=== PATIENT | female | born 1960 | race Caucasian/White ===

== ENCOUNTER 2020-02-16 09:51 | Outpatient (CLI) | payer OTHER, SELFPAY ==
--- NOTE | 2020-02-16 10:15 | USCV_ITS ---
Darlene Michael Age: 59 Gender: F : 1960 Exam Date: 02/16/2020 10:28 Ordering Phys: Frank Mcginnis MD ([email or web address]) Technologist: Latricia Escudero [place] [facility] [place]: SOB, [place], ISCHEMIC CARDIOMYOPATHY BP: / HR: 80 Rhythm: Sinus Technical Quality: Adequate MEASUREMENTS (Male / Female) Normal Values 2D ECHO LV Diastolic Diameter PLAX 5.3 cm 4.2 - 5.9 / 3.9 - 5.3 cm LV Systolic Diameter PLAX 3.5 cm IVS Diastolic Thickness 1.2 cm 0.6 - 1.0 / 0.6 - 0.9 cm IVS Systolic Thickness 1.7 cm LVPW Diastolic Thickness 1.0 cm 0.6 - 1.0 / 0.6 - 0.9 cm LVPW Systolic Thickness 1.0 cm LVOT Diameter 2.0 cm LV Ejection Fraction 2D Teich 62.0 % LV Ejection Fraction MOD 2C 55.8 % LV Ejection Fraction 2C AL 56.6 % LA Diameter 3.0 cm LA Width 3.7 cm LA Height 5.3 cm RA Width 3.1 cm RA Height 4.1 cm M-MODE LV Diastolic Diameter MM 4.7 cm 4.2 - 5.9 / 3.9 - 5.3 cm LV Systolic Diameter MM 3.6 cm LV Ejection Fraction MM Teich 45.7 % IVS Diastolic Thickness MM 0.9 cm 0.6 - 1.0 / 0.6 - 0.9 cm IVS Systolic Thickness MM 0.9 cm LVPW Diastolic Thickness MM 1.6 cm 0.6 - 1.0 / 0.6 - 0.9 cm LVPW Systolic Thickness MM 1.7 cm Aortic Annulus Diameter 2.7 cm LA Ao Ratio MM 1.1 MV E Point Septal Separation 0.4 cm DOPPLER AV Peak Velocity 119.0 cm/s LVOT Peak Velocity 89.0 cm/s AV Area Cont Eq vti 2.9 cm squared AV Area Cont Eq pk 2.4 cm squared MV Peak Velocity 103.0 cm/s MV Area PHT 4.1 cm squared Mitral E to A Ratio 0.7 MV E' Velocity 7.0 cm/s Mitral E to MV E' Ratio 11.9 Mitral E to LV E' Lateral Ratio 10.4 Mitral E to LV E' Septal Ratio 14.2 TR Peak Velocity 323.0 cm/s TR Peak Gradient 41.7 mmHg Right Atrial Pressure 3.0 mmHg Pulmonary Artery Systolic Pressu 44.7 mmHg PV Peak Velocity 91.0 cm/s RV Acceleration Time 0.1 s FINDINGS Left Ventricle Normal left ventricular cavity size. Normal left ventricular wall thickness. Mildly decreased left ventricular systolic function. Global left ventricular hypokinesis. Grade I/IV diastolic dysfunction (abnormal relaxation filling pattern), normal to mildly elevated filling pressures. Left ventricular ejection fraction is estimated at 40 %. Right Ventricle Normal right ventricular size and systolic function. Mild pulmonary hypertension, RVSP 44.7 mmHg. Right Atrium The right atrium is normal in size. Left Atrium The left atrium is normal in size. Mitral Valve Structurally normal mitral valve. Moderate mitral valve regurgitation. Aortic Valve Structurally normal aortic valve without significant sclerosis or stenosis. There is no aortic regurgitation. Tricuspid Valve Structurally normal tricuspid valve. Mild tricuspid valve regurgitation. Pulmonic Valve Pulmonic valve not well visualized. Pericardium Normal pericardium without effusion. Aorta Normal ascending aorta dimension. CONCLUSIONS Normal left ventricular cavity size. Normal left ventricular wall thickness. Mildly decreased left ventricular systolic function. Global left ventricular hypokinesis. Grade I/IV diastolic dysfunction (abnormal relaxation filling pattern), normal to mildly elevated filling pressures. Left ventricular ejection fraction is estimated at 40 %. Normal right ventricular size and systolic function. Mild pulmonary hypertension, RVSP 44.7 mmHg. Structurally normal mitral valve. Moderate mitral valve regurgitation. From the previous echo dated 08/20/2019 the left ventricular ejection fraction has diminished slightly. Previously noted to be 55%. The mitral regurgitation has lessened previously noted to be severe. Pulmonary artery pressure is the same. Otherwise, no change. Dr. Frank Mcginnis MD (Electronically Signed) Final Date: 19 February 2020 08:24 S
== END 2020-02-16 09:52 | disposition home or self-care (01) ==
LOC: RAD 09:56
PROVIDERS: Family Provider Internal Medicine; PCP Internal Medicine; Visit Provider Internal Medicine Cardiovascular Disease
DX: R06.02 Shortness of breath (principal); I25.5 Ischemic cardiomyopathy; I27.20 Pulmonary hypertension, unspecified; I21.9 Acute myocardial infarction, unspecified
CPT/HCPCS: 93306

== ENCOUNTER 2021-02-10 18:37 | Emergency (ER) | payer OTHER, SELFPAY ==
[2021-02-10 18:54] VITALS: BP 151/97; PULSE 80; RESP 18; TEMP 36.7; O2SAT 91; BMI 30.7
[2021-02-10 19:09] VITALS: BP 138/88; PULSE 92; RESP 20; TEMP 36.7; O2SAT 96
--- NOTE | 2021-02-10 19:32 | CTR_ITS ---
PROCEDURE INFORMATION: Exam: CT Abdomen And Pelvis Without Contrast Exam date and time: 02/10/2021 7:46 PM Age: 60 years old Clinical indication: Abdominal pain; Flank; Right; Prior surgery; Surgery type: x 2; Additional info: Right flank pain TECHNIQUE: Imaging protocol: Computed tomography of the abdomen and pelvis without contrast. Radiation optimization: All CT scans at this facility use at least one of these dose optimization techniques: automated exposure control; mA and/or kV adjustment per patient size (includes targeted exams where dose is matched to clinical indication); or iterative reconstruction. COMPARISON: No relevant prior studies available. RADIATION DOSE METRICS: Total DLP (mGy-cm): 1225.91 FINDINGS: Lungs: Mild fibrosis at the lung bases. Mediastinal space: There is a small hiatal hernia present. Liver: The liver is unremarkable in appearance. Gallbladder and bile ducts: No calcified gallstones in the gallbladder. No gallbladder wall thickening. No pericholecystic fluid. No biliary dilatation. Pancreas: The pancreas is normal in appearance. No pancreatic duct dilatation. Spleen: The spleen is normal in size and appearance. Adrenal glands: The adrenal glands appear within normal limits. Kidneys and ureters: Nonobstructing 2 mm right renal calculus. No left renal calculus. No hydronephrosis. 5 mm simple appearing left renal cyst. Stomach and bowel: No acute gastric abnormality demonstrated. The small bowel is unremarkable as demonstrated. Appendix: No evidence of appendicitis. Intraperitoneal space: No pneumoperitoneum. No significant fluid collection. Vasculature: The aorta is unremarkable as demonstrated. Lymph nodes: No enlarged lymph nodes. Urinary bladder: Urinary bladder is empty. No gross abnormality of the bladder noted. Reproductive: The uterus is not visualized, consistent with hysterectomy. Bones/joints: No fracture or other acute osseous abnormality. Degenerative spine changes are noted. Soft tissues: The soft tissues appear unremarkable. CT/CT kidney stone [id number] IMPRESSION: 1. Nonobstructing 2 mm right renal calculus. No left renal calculus. No hydronephrosis. No obstructive uropathy. 2. Urinary bladder is empty. No gross abnormality of the bladder noted. 3. No acute abnormality demonstrated in the abdomen and pelvis. COMMENTS: Consistent with the [employer]'s Incidental Findings Committee white paper (J Am Steve Radiol 2018): Any incidental renal lesion less than 1 cm or classified as too small to characterize, or any incidental cystic renal lesion characterized as simple-appearing, is likely benign. No follow-up imaging is recommended for these lesions per consensus recommendations based on imaging criteria. Radiation Dose CTDIVOL = (mGy): DLP = 1225.91 (mGy-cm)
[2021-02-10 20:22] LABS: Basophils # 0.1 10^3/uL (0.0-0.1); Basophils % 0.6 %; Eosinophils # 0.1 10^3/uL (0.0-0.8); Eosinophils % 0.9 %; Hematocrit 46.5 % (37.0-47.0); Hemoglobin 16.1 g/dL (11.5-15.3); Lymphocytes # 1.9 10^3/uL (0.8-4.8); Lymphocytes % 18.8 %; Mean Corpuscular HGB Conc 34.6 g/dL (30.0-36.0); Mean Corpuscular Hemoglobin 32.3 pg (28.0-34.0); Mean Corpuscular Volume 93.4 fL (81-99); Mean Platelet Volume 9.8 fL (7.4-10.4); Monocytes # 1.2 10^3/uL (0.2-0.9); Monocytes % 11.7 %; Neutrophils # 6.86 10^3/uL (1.8-7.7); Neutrophils % 67.8 %; Nucleated Red Blood Cells % 0 %; Platelet Count 285 10^3/cmm (130-400); Red Blood Count 4.98 10^6/uL (4.1-5.3); Red Cell Distribution Width 11.9 % (12.1-15.1); White Blood Count 10.1 10^3/uL (4.0-10.0)
[2021-02-10 20:39] LABS: Alanine Aminotransferase 21 U/L (0-33); Albumin Level 4.2 g/dL (3.5-5.2); Alkaline Phosphatase 74 IU/L (35-105); Anion Gap 15.3 (5-19); Aspartate Amino Transferase 45 U/L (0-32); Blood Urea Nitrogen 20 mg/dL (8-23); C Reactive Protein 1.9 mg/L (0.0-4.9); Calcium 8.9 mg/dL (8.5-10.5); Carbon Dioxide 22 mmol/L (22-29); Chloride 101 mmol/L (98-107); Glomerular Filtration Rate 72.7 mL/min (90-130); Glucose 108 mg/dL (65-115); Lipase 39 U/L (13-60); Osmolality Calculated 281 mOsm/kg (285-295); Potassium 4.3 mmol/L (3.5-5.1); Sodium 134 mmol/L (136-145); Total Bilirubin 0.4 mg/dL (0.15-1.2); Total Protein 7.2 g/dL (6.6-8.7)
--- NOTE | 2021-02-10 20:52 | ED_ITS ---
HPI - Abdominal Pain General: Chief Complaint: Abdominal Pain Stated Complaint: ab pain, back pain Time Seen by Provider: 02/10/21 19:13 History of Present Illness: HPI narrative: Patient is a 60-year-old female who presents to the emergency department with right flank pain that started yesterday and got much worse today. Pain started in the right lower quadrant and radiated and has localized to the right flank. She has associated nausea and diaphoresis. No diarrhea or vomiting. She denies any chest pain. No history of urolithiasis. Gallbladder and appendix have not been surgically removed. She is here to be evaluated because her pain is not improving. MD elicited complaint: flank pain Onset (ago): day(s) (1) Pain Consistency: constant Location: R flank Severity: severe Quality: stabbing Radiation: RLQ Exacerbating factors: nothing Relieving factors: nothing Associated Symptoms: Reports nausea; Denies anorexia, belching, bloating, change in bowel habits, change in stool character, chills, coffee ground emesis, constipation, GI cramping, diarrhea, dyspepsia, dysuria, excessive flatus, fever(s), heartburn, hematochezia, hematuria, hematemesis, fecal incontinence, loose stools, melena, poor appetite, syncope and vomiting Review of Systems General: Reports: 10 or more systems reviewed and unremarkable except in HPI and below Const: Denies: fever(s) or chills Card: Denies: syncope GI: Reports: nausea; Denies: vomiting, hematemesis, coffee ground emesis, heartburn, diarrhea, constipation, bloating, GI cramping, belching, excessive flatus, fecal incontinence, change in bowel habits, change in stool character, hematochezia or melena : Denies: dysuria or hematuria PFS ED PFSH: Medical History ASHD (arteriosclerotic heart disease) Congestive heart failure Dyslipidemia Epistaxis HTN (hypertension) Ischemic cardiomyopathy Palpitations Surgical History S/P angioplasty with stent Family History Father CAD (coronary artery disease) Hypertension CHF (congestive heart failure) S/P CABG (coronary artery bypass graft) Mother Cancer BREAST CA Social History Smoking and tobacco status: current every day smoker cigarettes Alcohol intake: never Marital status: Single Current occupational status: employed Physical Exam Const: COMMON NORMALS: no acute distress, average body habitus, patient oriented x3, no limitations, healthy appearing, alert and well nourished HENMT: COMMON NORMALS: normocephalic, atraumatic and moist oral mucous membranes HEAD & SCALP: normocephalic and atraumatic Neck/C-Spine: COMMON NORMALS: no meningeal signs and no JVD Resp: COMMON NORMALS: normal respiratory effort, No retractions, No use of accessory muscles, clear to auscultation bilaterally and percussion normal AUSCULTATION: clear to auscultation bilaterally PERCUSSION: percussion normal Cardio: COMMON NORMALS: no JVD, regular rate, regular rhythm, S1 normal heart sound present, S2 normal heart sound present, No gallops present (Cardio), No clicks present (Cardio), No murmurs present (Cardio), No rub (Cardio) and Peripheral pulses 2+ throughout RATE: regular rate RHYTHM: regular rhythm HEART SOUNDS: S1 normal heart sound present and S2 normal heart sound present PERIPHERAL PULSES: Peripheral pulses 2+ throughout GI: COMMON NORMALS: Normal to inspection, nondistended, normoactive bowel sounds present, Soft to palpation, non-tender, No hepatosplenomegaly present, no masses and no bruits PALPATION: Yes Soft to palpation and Yes No hepatosplenomegaly present : BLADDER/KIDNEY EXAM: Yes CVA tenderness on the right Back/Pelvis: GENERAL BACK: Yes CVA tenderness Extremity: COMMON NORMALS: normal to inspection, full ROM, capillary refill normal, no calf tenderness and no pedal edema Neuro: COMMON NORMALS: patient oriented x3 SENSORIUM/ORIENTATION: Yes alert MENINGEAL SIGNS: Yes no meningeal signs Skin: COMMON NORMALS: no rashes or lesions noted, no wounds, turgor normal, no jaundice, no petechiae and no mottling GENERAL SKIN EXAM: no rashes or lesions noted and turgor normal Course Reevaluation(s): Reevaluation #1: Discussed her lab and imaging findings with her. CT scan findings consistent with right renal calculus. She has blood in her urine. White cell count is normal. No UTI. We will manage her conservatively with pain medicine and tamsulosin. She will follow-up with her primary care provider. She voiced understanding and is in agreement with the plan. Time: 21:32 Vital Signs: Vital signs: Vital Signs Temperature 98.1 F 02/10/21 19:09 Pulse Rate 95 02/10/21 21:42 Respiratory Rate 16 02/10/21 21:42 Blood Pressure 150/95 02/10/21 21:42 Pulse Oximetry 97 02/10/21 21:42 MDM - Abdominal Pain MDM Narrative: Medical decision making narrative: This 60 year old female patient presents with right flank pain. Evaluation in the emergency department is consistent with uncomplicated right renal calculus. Pain was completely resolved following intravenous pain medications and she is discharged home on oral pain medications and tamsulosin. She will follow-up with her primary care provider. Medical Records: Attestation: I reviewed the patient's medical records. Lab Data: Attestation: I reviewed the patient's lab results. Labs: Lab Results 02/10/21 02/10/21 02/10/21 Range/Units 20:15 20:15 20:30 WBC 10.1 H (4.0-10.0) 10^3/ uL RBC 4.98 (4.1-5.3) 10^6/u L Hgb 16.1 H (11.5-15.3) g/dL Hct 46.5 (37.0-47.0) % MCV 93.4 (81-99) fL MCH 32.3 (28.0-34.0) pg MCHC 34.6 (30.0-36.0) g/dL RDW 11.9 L (12.1-15.1) % Plt Count 285 (130-400) 10^3/c mm MPV 9.8 (7.4-10.4) fL Neut % (Auto) 67.8 % Lymph % (Auto) 18.8 % [place] % (Auto) 11.7 % Eos % (Auto) 0.9 % Baso % (Auto) 0.6 % Neut # (Auto) 6.86 (1.8-7.7) 10^3/u L Lymph # (Auto) 1.9 (0.8-4.8) 10^3/u L [place] # (Auto) 1.2 H (0.2-0.9) 10^3/u L Eos # (Auto) 0.1 (0.0-0.8) 10^3/u L Baso # (Auto) 0.1 (0.0-0.1) 10^3/u L Nucleated RBC % (a uto) 0 % Nucleated RBCs # 0.0 /100WBC Sodium 134 L (136-145) mmol/L Potassium 4.3 (3.5-5.1) mmol/L Chloride 101 (98-107) mmol/L Carbon Dioxide 22 (22-29) mmol/L Anion Gap 15.3 (5-19) BUN 20 (8-23) mg/dL Creatinine 0.8 (0.5-0.9) mg/dL GFR Calculation 72.7 L (90-130) mL/min Glucose 108 (65-115) mg/dL Calculated Osmolal ity 281 L (285-295) mOsm/k g Calcium 8.9 (8.5-10.5) mg/dL Total Bilirubin 0.4 (0.15-1.2) mg/dL AST 45 H (0-32) U/L ALT 21 (0-33) U/L Alkaline Phosphata se 74 (35-105) IU/L C-Reactive Protein 1.9 (0.0-4.9) mg/L Total Protein 7.2 (6.6-8.7) g/dL Albumin 4.2 (3.5-5.2) g/dL Globulin 3.0 (1.3-4.6) g/dL Lipase 39 (13-60) U/L Urine Color Yellow (Yellow) Urine Appearance Clear (CLEAR) Urine pH 5 (5-7) Ur Specific Gravit y 1.005 (1.005-1.030) Urine Protein Neg (Negative) Urine Glucose (UA) Norm (Normal) Urine Ketones Negative (Negative) Urine Blood 2+ H (Negative) Urine Nitrate Negative (Negative) Urine Bilirubin Neg (Negative) Urine Urobilinogen Norm (Negative) mg/dL Ur Leukocyte Elena ase Negative (Negative) Urine RBC 0-4 H (0-2) /hpf Urine WBC None (0-5) /hpf Ur Squamous Epith Cells 0-4 H (0-5) /hpf Amorphous Sediment Not Reportable Urine Bacteria Trace (NONE) /hpf Imaging Data ^: CT Abd/Pel: Attestation: I personally reviewed and interpreted this imaging study as follows: Radiologist's impression: [id number] [place], [place] [address]CW Scan ReportSigned Patient: Darlene Michael #: [id number]: 1960cct#:[id number]/Sex: 60 / FADM Date: 02/10/21Loc: ERRoom/Bed:Attending Dr: Ordering Provider/Ordering MD: Demarco Zhou MD, [facility] [place] Date of Service: 02/10/21 Procedure(s): CT kidney stone [id number] Accession Number(s): [id number] Report Number: [id number] PROCEDURE INFORMATION: Exam: CT Abdomen And Pelvis Without Contrast Exam date and time: 02/10/2021 7:46 PM Age: 60 years old Clinical indication: Abdominal pain; Flank; Right; Prior surgery; Surgery type: x 2; Additional info: Right flank pain TECHNIQUE: Imaging protocol: Computed tomography of the abdomen and pelvis without contrast. Radiation optimization: All CT scans at this facility use at least one of these dose optimization techniques: automated exposure control; mA and/or kV adjustment per patient size (includes targeted exams where dose is matched to clinical indication); or iterative reconstruction. COMPARISON: No relevant prior studies available. RADIATION DOSE METRICS: Total DLP (mGy-cm): 1225.91 FINDINGS: Lungs: Mild fibrosis at the lung bases. Mediastinal space: There is a small hiatal hernia present. Liver: The liver is unremarkable in appearance. Gallbladder and bile ducts: No calcified gallstones in the gallbladder. No gallbladder wall thickening. No pericholecystic fluid. No biliary dilatation. Pancreas: The pancreas is normal in appearance. No pancreatic duct dilatation. Spleen: The spleen is normal in size and appearance. Adrenal glands: The adrenal glands appear within normal limits. Kidneys and ureters: Nonobstructing 2 mm right renal calculus. No left renal calculus. No hydronephrosis. 5 mm simple appearing left renal cyst. Stomach and bowel: No acute gastric abnormality demonstrated. The small bowel is unremarkable as demonstrated. Appendix: No evidence of appendicitis. Intraperitoneal space: No pneumoperitoneum. No significant fluid collection. Vasculature: The aorta is unremarkable as demonstrated. Lymph nodes: No enlarged lymph nodes. Urinary bladder: Urinary bladder is empty. No gross abnormality of the bladder noted. Reproductive: The uterus is not visualized, consistent with hysterectomy. Bones/joints: No fracture or other acute osseous abnormality. Degenerative spine changes are noted. Soft tissues: The soft tissues appear unremarkable. CT/CT kidney stone [id number] IMPRESSION: 1. Nonobstructing 2 mm right renal calculus. No left renal calculus. No hydronephrosis. No obstructive uropathy. 2. Urinary bladder is empty. No gross abnormality of the bladder noted. 3. No acute abnormality demonstrated in the abdomen and pelvis. COMMENTS: Consistent with the [employer] [place] [employer]'s Incidental Findings Committee white paper (J Am Steve Radiol 2018): Any incidental renal lesion less than 1 cm or classified as too small to characterize, or any incidental cystic renal lesion characterized as simple-appearing, is likely benign. No follow-up imaging is recommended for these lesions per consensus recommendations based on imaging criteria. Radiation Dose CTDIVOL = (mGy): DLP = 1225.91 (mGy-cm) Dictated By:Larry Hart MDSigned By:Larry Hart MDSigned Date/[place] e:02/10/212115DD/ 14 Discharge Plan Discharge Patient Disposition: Home Clinical Impression: Calculus of kidney Condition: Stable Prescriptions: New hydrocodone-acetaminophen 5-325 mg tablet 1 tab PO Q8H PRN (Reason: kidney stones) Qty: 20 RF: 0 Flomax 0.4 mg capsule 0.4 mg PO DAILY Qty: 30 RF: 0 Continued aspirin [Adult Low Dose Aspirin] 81 mg tablet,delayed release (DR/EC) 81 mg PO DAILY@0700 RF: 0 nitroglycerin [Nitrostat] 0.4 mg tablet, sublingual 0.4 mg SUBLINGUAL Q5M PRN (Reason: Chest Pain) RF: 0 potassium chloride [Klor-Con 10] 10 mEq tablet extended release 10 meq PO DAILY@0700 RF: 0 metoprolol succinate 100 mg tablet extended release 24 hr 50 mg PO DAILY Qty: 45 RF: 3 lovastatin 40 mg tablet 40 mg PO DAILY@0700 RF: 0 clopidogrel 75 mg tablet 75 mg PO DAILY@0700 RF: 0 furosemide 20 mg tablet 20 mg PO DAILY@0700 RF: 0 lisinopril 2.5 mg tablet 2.5 mg PO DAILY@0700 RF: 0 Discharge Orders: Discharge ED (Routine); Ordered 02/10/21 Ordered By: Demarco Zhou Referrals: Randall Peoples MD [Primary Care Provider] - 1-3 days Discharge Diet: Usual diet Discharge Activity: Increase activity as tolerated Patient Instructions: Kidney Stones (ED), Opioid Safety Activity Restrictions/Additional Instructions: Return for any new or worsening symptoms. Follow-up with your primary care provider within 3 days. Drink plenty of fluids to keep well-hydrated. Take the pain medicine as needed for pain. Take the tamsulosin daily until your pain has resolved. If you have repeated episodes of kidney stones you may need to see a urologist. Coding Level of Care Code ED Primary Care Provider for Carlos Fwd Exam Comprehensive
[2021-02-10] MEDS: ondansetron 2 mg/ML SDV 2 mL 4 MG IVP (20:56)
[2021-02-10] MEDS: morphine 4 mg/mL SDV 1 mL IVP (20:58)
[2021-02-10 21:10] LABS: Glucose Urine UA Norm (Normal); Ketones Urine Negative (Negative); Protein Urine Neg (Negative); Specific Gravity, Urine 1.005 (1.005-1.030); Urine Appearance Clear (CLEAR); Urine Color Yellow (Yellow); pH Urine 5 (5-7)
[2021-02-10 21:11] LABS: Add Urine Microscopic? YES; Bilirubin Urine Neg (Negative); Blood Urine 2+ (Negative); Leukocyte Esterase Urine Negative (Negative); Nitrate Urine Negative (Negative); Urobilinogen Urine Norm (Negative)
[2021-02-10 21:25] LABS: Add Urine Culture? No; Bacteria Urine TRACE /hpf; RBC Urine 0-4 /hpf (0-2); Squamous Epithelial Cell Urine 0-4 /hpf (0-5)
[2021-02-10 21:42] VITALS: BP 150/95; PULSE 95; RESP 16; O2SAT 97
== END 2021-02-10 21:43 | disposition home or self-care (01) ==
PROVIDERS: Emergency Provider Family Medicine; PCP Internal Medicine
DX: N20.0 Calculus of kidney (principal); Z79.82 Long term (current) use of aspirin; Z79.02 Long term (current) use of antithrombotics/antiplatelets; I11.0 Hypertensive heart disease with heart failure; I50.9 Heart failure, unspecified; E78.5 Hyperlipidemia, unspecified; F17.210 Nicotine dependence, cigarettes, uncomplicated
CPT/HCPCS: 74176; 80053; 81001; 83690; 85025; 86140; 96374; 96375; 99283; J2270; J2405

== ENCOUNTER 2021-03-03 07:54 | Inpatient (IN) | payer OTHER, SELFPAY ==
[2021-03-03] VITALS (15 sets, daily range): BP systolic 97–191; BP diastolic 60–88; PULSE 65–122; RESP 14–26; TEMP 36.7; O2SAT 90–98; BMI 26.6
--- NOTE | 2021-03-03 08:06 | USCV_ITS ---
Darlene Michael Age: 60 Gender: F : 1960 Exam Date: 03/03/2021 08:54 Ordering Phys: Misty Avina Technologist: Rahel Cardona Exam Location: [facility] – [place]_ Indication: COLD PAINFUL LT FOOT Risk Factors: Unknown Previous Vascular Surgery: CARDIAC STENTS RIGHT LEFT BP: 123.0 / BP: 123.0/ 67.00 0 0 Waveform Velocity (cm/s) Velocity (cm/s) Waveform Iliac Prox 76.0 Biphasic Iliac Mid 88.4 Biphasic FINDINGS VIZ CLOT FROM DISTAL ILIAC TO DISTAL FEM ART. NO FLOW POP TO PERONEAL TO DPA/TOOLS ADMINISTRATOR. Echogenic material was noted in the lumen of the distal iliac artery on the left side. No significant Doppler flow signals are noted in the distal iliac, femoral, popliteal and infrapopliteal vessels. CONCLUSIONS Features suggestive of thrombus occluding the distal iliac artery on the left side with no significant blood flow in the femoral, popliteal and infrapopliteal vessels, based on the Doppler signals No similar previous studies are available for comparison Misty Avina was informed about this finding Dr Karena Clark MD [facility] (Electronically Signed) Final Date: 03 March 2021 09:49 S
--- NOTE | 2021-03-03 08:06 | USCV_ITS ---
Darlene Michael Age: 60 Gender: F : 1960 Exam Date: 03/03/2021 08:45 Ordering Phys: Misty Avina Technologist: Rahel Cardona Exam Location: [facility] [place]_ Indication: COLD PAINFUL LT FOOT HISTORY: Pain and numbness lt foot PROCEDURES: Venous duplex imaging was performed in only the left lower extremity. The following venous structures were evaluated: common femoral vein, profunda vein, proximal portion of the greater saphenous vein, superficial femoral vein, and the popliteal vein. In addition, the posterior tibial and peroneal trunk were evaluated. Serial compression, augmentation maneuvers, and spectral Doppler flow evaluation were performed. FINDINGS: No DVT seen in any vessel examined in venous system See arterial study. The veins were found to be easily compressible with spontaneous blood flow. Non pulsatile flow pattern. CONCLUSIONS No evidence of DVT in the above-mentioned identifiable veins. Dr Karena Clark MD [facility] (Electronically Signed) Final Date: 03 March 2021 17:16 S
--- NOTE | 2021-03-03 08:07 | W.ED.EXTPRO ---
Documented by User: AHSAN Denton 03/03/21 10:57 HPI - Extremity Problem General: Chief complaint: Extremity Problem,Nontraumatic Stated complaint: LEFT LEG PAIN Time Seen by Provider: 03/03/21 07:55 Source: patient Mode of arrival: wheelchair Limitations: no limitations History of Present Illness: HPI Narrative: Patient is a 60-year-old female who presents to ED today for evaluation of left leg pain. Patient tells me earlier this morning she began feeling like her left lower extremity was numb and complained of 10/10 pain. She states numbness/pain affected the entire leg and states it felt like it was asleep . She also felt like the lower portion of her leg and foot was swollen. She states her left foot also turned blue for a little while. She did not notice any temperature changes. Patient tells me she has had what has felt like a pulled muscle in her left calf for approximately a month now. Upon arrival patient tells me that the numbness has subsided but still feels like her toes have some altered sensation. Still having 5/10 pain. She does not complain of back pain. No known history of PVD. She does have known HTN, CAD, ischemic cardiomyopathy, and CHF. MD Complaint: extremity pain and extremity swelling Onset (ago): hour(s) Pain Consistency: now resolved Location: left and lower extremity Radiation: none Relieving factors: nothing Exacerbating factors: nothing Associated symptoms: Reports no associated symptoms; Deny chest pain, fever(s) or rash Review of Systems Const: Denies: fever(s), chills, body aches, fatigue or malaise Eyes: Denies: change in vision or blurry vision Card: Reports: acrocyanosis (reports this morning L foot was blue); Denies: chest pain, palpitations, irregular heart rhythm, edema, swelling of feet/ankles, lightheadedness, syncope, pre-syncope, dyspnea on exertion or orthopnea Resp: Denies: dyspnea, productive cough, non-productive cough, hemoptysis or chest congestion GI: Denies: abdominal pain, nausea or vomiting Musc: Reports: extremity pain and extremity swelling (feels like L LE is swollen); Denies: neck pain, back pain, joint pain, joint swelling, joint redness, joint warmth or limited range of motion Skin/Breast: Denies: rash Neuro: Reports: numbness in extremities (subsided now but states earlier L LE was numb); Denies: headache(s) PFSH ED PFSH: Medical History ASHD (arteriosclerotic heart disease) Congestive heart failure Dyslipidemia Epistaxis HTN (hypertension) Ischemic cardiomyopathy Palpitations Surgical History S/P angioplasty with stent Family History Father CAD (coronary artery disease) Hypertension CHF (congestive heart failure) S/P CABG (coronary artery bypass graft) Mother Cancer BREAST CA Social History Smoking and tobacco status: current every day smoker cigarettes Alcohol intake: never Marital status: Single Current occupational status: employed Physical Exam Const: COMMON NORMALS: no acute distress, patient oriented x3, no limitations, alert and well nourished GENERAL APPEARANCE: cooperative ORIENTATION/CONSCIOUSNESS: Yes awake, Yes oriented to person, Yes oriented to place and Yes oriented to time Resp: COMMON NORMALS: normal respiratory effort and clear to auscultation bilaterally AUSCULTATION: clear to auscultation bilaterally Cardio: RATE: tachycardic RHYTHM: abnormal rhythm regularly irregular GI: COMMON NORMALS: Normal to inspection, nondistended, normoactive bowel sounds present, Soft to palpation, non-tender, No hepatosplenomegaly present and no masses PALPATION: Yes Soft to palpation and Yes No hepatosplenomegaly present Back/Pelvis: COMMON NORMALS: thoracic and lumbar spine normal to inspection, no thoracic nor lumbar tenderness, thoraco-lumbar ROM normal and straight leg raise negative bilaterally PELVIS: Yes buttocks normal SACROILIAC JOINTS: Yes SI joints normal Extremity: COMMON NORMALS: full ROM and no joint enlargement GENERAL: Yes normal exam except as noted OTHER: pt has pallor to the dorsal distal foot and toes when compared to R; both extremities are cool to the touch but L is slightly cooler; cap refill is slightly delayed bilaterally; cannot appreciate much of a DP/PT pulse; she reports decreased sensation to toes; she has pain with palpation to L calf with a positive Carmine's; I do not appreciate any obvious swelling; no redness/warmth Neuro: ELSA COMA SCALE: document GCS findings Elsa coma scale eye opening: Spontaneous [place] coma scale verbal response: Orientated [place] coma scale motor response: Obey commands Elsa coma scale total score: 15 COMMON NORMALS: patient oriented x3, CN's II-XII intact bilaterally, moves all extremities and no focal motor deficits SENSORIUM/ORIENTATION: Yes alert, Yes oriented to person, Yes oriented to place and Yes oriented to time SPEECH: speech normal SENSORY EXAM: Yes other (reports decreased sensation to L toes when compared to R) MOTOR EXAM: 5/5 motor strength present throughout Skin: NARRATIVE SKIN EXAM: see extremity assessment for any pertinent skin findings Course Reevaluation(s): Reevaluation #1: Dr. Nicolas evaluating patient now. Plan will be to go straight to OR. RN notified that she needs to give her the heparin that was ordered. Consultations: Consultation #1: Dr. Nicolas-will come evaluate patient in ED Vital Signs: Vital signs: Vital Signs Temperature 98.0 F 03/03/21 07:57 Pulse Rate 89 03/03/21 15:15 Respiratory Rate 20 H 03/03/21 15:15 Blood Pressure 99/75 03/03/21 15:15 Pulse Oximetry 93 03/03/21 15:15 MDM - Extremity (Nontraumatic) MDM Narrative: Medical decision making narrative: Patient has new onset atrial fibrillation with acute arterial occlusion of her L distal iliac artery with virtually no flow distally. She was evaluated by Dr. Nicolas and will go straight to OR. She was given heparin bolus here. Dr. Schaeffer made aware of patient following results of her US and agrees with plan of care. Lab Data: Labs: Lab Results 03/03/21 03/03/21 03/03/21 Range/Units 08:30 08:30 08:30 WBC 8.5 (4.0-10.0) 10^3/ uL RBC 4.55 (4.1-5.3) 10^6/u L Hgb 14.6 (11.5-15.3) g/dL Hct 43.3 (37.0-47.0) % MCV 95.2 (81-99) fL MCH 32.1 (28.0-34.0) pg MCHC 33.7 (30.0-36.0) g/dL RDW 12.1 (12.1-15.1) % Plt Count 241 (130-400) 10^3/c mm MPV 10.1 (7.4-10.4) fL Neut % (Auto) 79.2 % Lymph % (Auto) 11.0 % [place] % (Auto) 7.8 % Eos % (Auto) 1.2 % Baso % (Auto) 0.6 % Neut # (Auto) 6.69 (1.8-7.7) 10^3/u L Lymph # (Auto) 0.9 (0.8-4.8) 10^3/u L [place] # (Auto) 0.7 (0.2-0.9) 10^3/u L Eos # (Auto) 0.1 (0.0-0.8) 10^3/u L Baso # (Auto) 0.1 (0.0-0.1) 10^3/u L Nucleated RBC % (a uto) 0 % Nucleated RBCs # 0.0 /100WBC PT 13.20 (12.1-14.9) SECO NDS INR 0.97 (0.8-1.2) APTT 22.1 L (23.9-36.7) SECO NDS Sodium 140 (136-145) mmol/L Potassium 4.1 (3.5-5.1) mmol/L Chloride 104 (98-107) mmol/L Carbon Dioxide 26 (22-29) mmol/L Anion Gap 14.1 (5-19) BUN 13 (8-23) mg/dL Creatinine 0.8 (0.5-0.9) mg/dL GFR Calculation 72.7 L (90-130) mL/min Glucose 119 H (65-115) mg/dL Calculated Osmolal ity 291 (285-295) mOsm/k g Calcium 8.8 (8.5-10.5) mg/dL Total Bilirubin 0.4 (0.15-1.2) mg/dL AST 18 (0-32) U/L ALT 14 (0-33) U/L Alkaline Phosphata se 75 (35-105) IU/L Total Protein 7.2 (6.6-8.7) g/dL Albumin 4.1 (3.5-5.2) g/dL Globulin 3.1 (1.3-4.6) g/dL Imaging Data^: US venous L LE: My impression: Per US max Espinoza-no DVT US arterial L LE: Radiologist's impression: Elvia [id number] [facility] [place] [place], [place] [id number] ReportSigned Patient: Darlene Michael LUnit #: [id number]: 1960cct#:[id number]/Sex: 60 / FADM Date: 03/03/21Loc: ERRoom/Bed:Attending Dr: Ordering Provider/Ordering MD: Misty Avina Date of Service: 03/03/21 Procedure(s): [place] [address] Accession Number(s): [id number] Report Number: [id number] Darlene Michael Age: 60 Gender: F : 1960 Exam Date: 03/03/2021 08:54 Ordering Phys: Misty Avina Technologist: Rahel Cardona Exam Location: [facility] [place] Indication: COLD PAINFUL LT FOOT Risk Factors: Unknown Previous Vascular Surgery: CARDIAC STENTS RIGHT LEFT BP: 123.0 / BP: 123.0/ 67.00 0 0 Waveform Velocity (cm/s) Velocity (cm/s) Waveform Iliac Prox 76.0 Biphasic Iliac Mid 88.4 Biphasic FINDINGS VIZ CLOT FROM DISTAL ILIAC TO DISTAL FEM ART. NO FLOW POP TO PERONEAL TO DPA/SENIOR RESERVATIONS AGENT. Echogenic material was noted in the lumen of the distal iliac artery on the left side. No significant Doppler flow signals are noted in the distal iliac, femoral, popliteal and infrapopliteal vessels. CONCLUSIONS Features suggestive of thrombus occluding the distal iliac artery on the left side with no significant blood flow in the femoral, popliteal and infrapopliteal vessels, based on the Doppler signals No similar previous studies are available for comparison Misty Avina was informed about this finding Dr Karena Clark MD [facility] (Electronically Signed) Final Date: 03 March 2021 09:49 S EKG Data^: EKG 1: EKG interpretation date: 03/03/21 EKG interpretation time: 08:33 Interpretation: Atrial fibrillation with RVR Rate [address] elevation or depression changes noted Discharge Plan Discharge Patient Disposition: Admitted As Inpatient Admit Provider: Kingsley Nicolas Clinical Impression: Occlusion of left iliac artery, New onset atrial fibrillation Condition: Fair Coding Level of Care Code ED Social Service Liaison for Chg Fwd Exam Detailed Documented by User: Clive Schaeffer DO 03/04/21 06:46 HPI - Extremity Problem General: Chief complaint: Extremity Problem,Nontraumatic Stated complaint: LEFT LEG PAIN Time Seen by Provider: 03/03/21 07:55 PFSH ED PFSH: Medical History ASHD (arteriosclerotic heart disease) Congestive heart failure Dyslipidemia Epistaxis HTN (hypertension) Ischemic cardiomyopathy Palpitations Surgical History S/P angioplasty with stent Family History Father CAD (coronary artery disease) Hypertension CHF (congestive heart failure) S/P CABG (coronary artery bypass graft) Mother Cancer BREAST CA Social History Smoking and tobacco status: current every day smoker cigarettes Alcohol intake: never Marital status: Single Current occupational status: employed Course Vital Signs: Vital signs: Vital Signs Temperature 98.0 F 03/03/21 07:57 Pulse Rate 89 03/03/21 15:15 Respiratory Rate 20 H 03/03/21 15:15 Blood Pressure 99/75 03/03/21 15:15 Pulse Oximetry 93 03/03/21 15:15 MDM - Extremity (Nontraumatic) MDM Narrative: Medical decision making narrative: Reviewed case with AHSAN Denton on an ongoing basis while the patient was in the emergency room agree with assessment and plan. Lab Data: Labs: Lab Results 03/03/21 03/03/21 03/03/21 Range/Units 08:30 08:30 08:30 WBC 8.5 (4.0-10.0) 10^3/ uL RBC 4.55 (4.1-5.3) 10^6/u L Hgb 14.6 (11.5-15.3) g/dL Hct 43.3 (37.0-47.0) % MCV 95.2 (81-99) fL MCH 32.1 (28.0-34.0) pg MCHC 33.7 (30.0-36.0) g/dL RDW 12.1 (12.1-15.1) % Plt Count 241 (130-400) 10^3/c mm MPV 10.1 (7.4-10.4) fL Neut % (Auto) 79.2 % Lymph % (Auto) 11.0 % [place] % (Auto) 7.8 % Eos % (Auto) 1.2 % Baso % (Auto) 0.6 % Neut # (Auto) 6.69 (1.8-7.7) 10^3/u L Lymph # (Auto) 0.9 (0.8-4.8) 10^3/u L [place] # (Auto) 0.7 (0.2-0.9) 10^3/u L Eos # (Auto) 0.1 (0.0-0.8) 10^3/u L Baso # (Auto) 0.1 (0.0-0.1) 10^3/u L Nucleated RBC % (a uto) 0 % Nucleated RBCs # 0.0 /100WBC PT 13.20 (12.1-14.9) SECO NDS INR 0.97 (0.8-1.2) APTT 22.1 L (23.9-36.7) SECO NDS Sodium 140 (136-145) mmol/L Potassium 4.1 (3.5-5.1) mmol/L Chloride 104 (98-107) mmol/L Carbon Dioxide 26 (22-29) mmol/L Anion Gap 14.1 (5-19) BUN 13 (8-23) mg/dL Creatinine 0.8 (0.5-0.9) mg/dL GFR Calculation 72.7 L (90-130) mL/min Glucose 119 H (65-115) mg/dL Calculated Osmolal ity 291 (285-295) mOsm/k g Calcium 8.8 (8.5-10.5) mg/dL Total Bilirubin 0.4 (0.15-1.2) mg/dL AST 18 (0-32) U/L ALT 14 (0-33) U/L Alkaline Phosphata se 75 (35-105) IU/L Total Protein 7.2 (6.6-8.7) g/dL Albumin 4.1 (3.5-5.2) g/dL Globulin 3.1 (1.3-4.6) g/dL Discharge Plan Discharge Patient Disposition: Admitted As Inpatient Admit Provider: Kingsley Nicolas Clinical Impression: Occlusion of left iliac artery, New onset atrial fibrillation Condition: Fair Coding Level of Care Code ED Social Service Liaison for g Fwd Exam Detailed
--- NOTE | 2021-03-03 08:11 | ECG_ITS ---
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 Measurements Intervals [place] Rate: 106 P: ME: QRS: 52 QRSD: 89 T: 68 QT: 344 QTc: 457 Interpretive Statements ATRIAL FIBRILLATION WITH RAPID VENTRICULAR RESPONSE LOW QRS VOLTAGE IN PRECORDIAL LEADS [QRS DEFLECTION < 1.0 mV IN CHEST LEADS] ABNORMAL RHYTHM ECG Compared to ECG 08/25/2019 08:09:08 Sinus rhythm no longer present ST (T wave) deviation no longer present Electronically Signed On 03-03-2021 18:54:44 CDT by Karena Clark M.D. [id number]
[2021-03-03 08:45] LABS: Basophils # 0.1 10^3/uL (0.0-0.1); Basophils % 0.6 %; Eosinophils # 0.1 10^3/uL (0.0-0.8); Eosinophils % 1.2 %; Hematocrit 43.3 % (37.0-47.0); Hemoglobin 14.6 g/dL (11.5-15.3); Lymphocytes # 0.9 10^3/uL (0.8-4.8); Mean Corpuscular HGB Conc 33.7 g/dL (30.0-36.0); Mean Corpuscular Hemoglobin 32.1 pg (28.0-34.0); Mean Corpuscular Volume 95.2 fL (81-99); Mean Platelet Volume 10.1 fL (7.4-10.4); Monocytes # 0.7 10^3/uL (0.2-0.9); Monocytes % 7.8 %; Neutrophils # 6.69 10^3/uL (1.8-7.7); Neutrophils % 79.2 %; Nucleated Red Blood Cells % 0 %; Platelet Count 241 10^3/cmm (130-400); Red Blood Count 4.55 10^6/uL (4.1-5.3); Red Cell Distribution Width 12.1 % (12.1-15.1); White Blood Count 8.5 10^3/uL (4.0-10.0)
[2021-03-03 08:53] LABS: INR 0.97 (0.8-1.2); Partial Thromboplastin Time 22.1 SECONDS (23.9-36.7)
[2021-03-03 09:00] LABS: Alanine Aminotransferase 14 U/L (0-33); Albumin Level 4.1 g/dL (3.5-5.2); Alkaline Phosphatase 75 IU/L (35-105); Anion Gap 14.1 (5-19); Aspartate Amino Transferase 18 U/L (0-32); Blood Urea Nitrogen 13 mg/dL (8-23); Calcium 8.8 mg/dL (8.5-10.5); Carbon Dioxide 26 mmol/L (22-29); Chloride 104 mmol/L (98-107); Globulin 3.1 g/dL (1.3-4.6); Glomerular Filtration Rate 72.7 mL/min (90-130); Glucose 119 mg/dL (65-115); Osmolality Calculated 291 mOsm/kg (285-295); Potassium 4.1 mmol/L (3.5-5.1); Sodium 140 mmol/L (136-145); Total Bilirubin 0.4 mg/dL (0.15-1.2); Total Protein 7.2 g/dL (6.6-8.7)
[2021-03-03 09:12] LABS: Slide Review Slide Review Perform
--- NOTE | 2021-03-03 10:18 | XACV_ITS ---
Ht: 168 cm Wt: 86 kg BSA: 2.03 m2 Any Known Allergies: Other Gender: Female : 1960 Exam Type: Invasive Peripheral Vascular Procedure(s): Procedure Description: Peripheral Cath Diagnostic Procedure Procedure Description: Abdominal aortic angiography Procedure Description: Peripheral vascular Intervention Procedure Description: PV Balloon Procedure Description: PV Thrombectomy Exam Priority: Routine Lower Extremity Interventional Findings After somewhat difficulty we were able to cross with the help of glide wire into left SFA popliteal tibioperoneal trunk and anterior tibial vessels. Balloon angioplasty was performed initially but were not able to open up the left SFA. It is also noted to have acute on chronic occlusion. Long sheath was then upgraded with 8 Belgian destination sheath. Penumbra cat 8 catheter was used to perform thrombectomy from proximal left SFA to popliteal vessel. Selective injection showed amish of some flow however SFA popliteal and tibioperoneal subtotally occluded appear to be atretic vessels. Left anterior tibial was noted to be occluded in the mid to distal segment. Left peroneal and posterior tibial not visualized most likely occluded beyond tibioperoneal trunk.Multiple balloon angioplasty of left anterior tibial tibioperoneal trunk popliteal and left SFA was performed using Kaman and Glidewire. Please see in detail inventory for balloons and instruments.Excellent angiographic result with good flow was restored from all the way left SFA into the popliteal into tibioperoneal trunk. Balloon angioplasty of distal anterior tibial into the foot was performed. Good flow was noted in the left anterior tibial posterior tibial and peroneal artery. Good three-vessel runoff was also noted at the end of the procedure. Pulses were palpable while patient started moving the feet with good sensation.. Conclusions Indication for peripheral angiogram and percutaneous angioplasty: Limb salvage, acute leg ischemia secondary to thromboembolic phenomena acute on chronic. Patient has severe peripheral vascular disease with history of smoking and lifestyle limiting claudication. She presented with acute left leg pain. She was noted to have new onset of atrial fibrillation. She is not on anticoagulation. Vascular ultrasound did not show any blood supply below common femoral artery on the left side.Through right common femoral approach peripheral angiogram was performed using UF catheter. Left renal artery was without significant stenosis right renal artery not well visualized.Bilateral common iliac, internal iliac external iliac and common femoral artery without significant stenosis. Left SFA noted to be occluded no blood supply noted all the way to the left leg. It is a culprit vessel. Right SFA popliteal and tibioperoneal patent. Sluggish flow was noted with possible endothelial dysfunction. Due to less contrast below the knee vessels are not well visualized.. null was treated with Balloon. null was treated with Balloon. null was treated with Balloon. null was treated with Balloon. Recommendations Continue current medical management and risk factor modification. Follow up with PCP as directed. Access Site Site: Right Femoral artery Sheath Size: 6 Fr Hemost... Method: Suture Hemost... Success: Successful Procedure Details Findings Procedure Consent Obtained. Admit Source: Emergency department. Pre-Procedure Time Out. Identified patient by full name and date of as verbalized by the patient/guarantor. Does the consent match the physician's order: Yes. Accurate & Complete Informed Consent: Yes. Inpatient/Outpatient History & Physical on Chart: Yes. If H&P is completed, is and addenduem needed: N/A; If yes, is the addendum complete: N/A. Visualize and Verify Site with Patient/Guarantor: N/A. Relevant Radiology Images available: N/A. Pre-op teaching completed and patient verbalized understanding. The risks, benefits, and alternatives of sedation and/or procedure were discussed by physician. The patient agrees to continue. Procedure started. Correct patient, site and procedure confirmed by cath team. PERRLA. Strong, equal hand drafter heating and ventilating bilaterally. Lungs clear x 5 lobes. IV Site on Arrival: 20 gauge in the right anticubital. Oxygen started at 2liters/min via nasal canula. bilateral groins was prepped with chloroprep then draped in the usual sterile fashion. Baseline sample Acquired. HR: 109 BPM. Physician notified. Physician arrived. Physician scrubbed in. Time out performed with cath team. Correct Patient: Yes; Correct Procedure: Yes; Correct Site: Yes; Correct Patient Position: Yes; Correct Supplies: Yes; Dried Flammable Prep: Yes; Blood Products Available: N/A;. Lidocaine 1% infiltrated to the right groin. Arterial access obtained. A 5FrFr UF catheter in over wire. Abdominal aortogram performed in AP @ 10 mL/sec for a total of 30 mL. glide wire inserted. Catheter out. Sheath upsized to a 8 Fr. Inflation number : 1 A Vinylmint [place] 35 GLUE DRIER OPERATOR Catheter [id number] was prepped and advanced across the Mid Superficial Femoral, Left , then inflated to 6 GIAN for 1:01 seconds. Inflation number: 2 The AB [place] 35 GLUE DRIER OPERATOR Catheter [id number] was reinflated across the Mid Superficial Femoral, Left, to 10 GIAN for 1:00 seconds. Inflation number: 3 The AB [place] 35 GLUE DRIER OPERATOR Catheter [id number] was reinflated across the Mid Superficial Femoral, Left, to 10 GIAN for 1:00 seconds. Balloon out. checking results. Cat8 catheter inserted. lot#[id number]. Catheter out. 8Fr Flexor sheath out. 8Fr destination sheath inserted. CAT8 Catheter inserted. Thrombectomy performed. catheter out to clean. CAT8 catheter inserted. Thrombectomy performed. catheter out. Seeker catheter inserted over the wire. glidewire out. handinjection performed through seeker. command wire inserted through seeker. glidewire insert. seeker out. Inflation number : 1 A AB ARMADA 14 OTW [id number] was prepped and advanced across the Tibial Peroneal Trunk, Left , then inflated to 12 GIAN for 2:00 seconds. Balloon out. checking results. Jose Narayanan RN relieved Chapo Yao RN for circulate. Inflation number : 1 A AB ARM[place] 14 OTW [id number] was prepped and advanced across the Inferior Tibial Peroneal, Left1 , then inflated to 4 GIAN for 0:20 seconds. Inflation number: 2 The AB [place] 14 OTW [id number] was reinflated across the Inferior Tibial Peroneal, Left1, to 12 GIAN for 2:05 seconds. Inflation number: 3 The AB [place] 14 OTW [id number] was reinflated across the Inferior Tibial Peroneal, Left1, to 12 GIAN for 2:01 seconds. Balloon out. Seeker inserted. command wire out. hand injection performed. Glidewire inserted. Seeker out. ACT drawn. Results 178 seconds. Therapeutic limits - pre-heparin administration 90-150 seconds and monitoring heparin during a vascular procedure >250 seconds. Cassie Sargent scrubbed in for Suzie Thranthum. Chapo Yao in to relieve Binh Oracio. Inflation number : 1 A AB [place] 35 GLUE DRIER OPERATOR Catheter [id number] was prepped and advanced across the Superficial Femoral, Left , then inflated to 4 GIAN for 2:01 seconds. Inflation number: 2 The AB [place] 35 GLUE DRIER OPERATOR Catheter [id number] was reinflated across the Superficial Femoral, Left, to 4 GIAN for 2:05 seconds. Balloon out. checking results. Left Leg runoff performed 10mL/sec for a total of 30mL. 2nd Left leg Runoff performed 10mL/sec for a total of 30mL. Long 8F sheath exchanged for short 8F sheath. Right leg runoff performed. 10mL/sec for a total of 30mL. Sheath(s) sutured into position with 2-0 silk and sterile 4x4's and Op-site applied over the site. No oozing or signs and symptoms of hematoma noted. Arterial sheath flushed and connected to tranducer and pressure bag with heparinized saline. Post Procedure: Pulses reassessed and unchanged. PERRLA. Strong, equal hand drafter heating and ventilating bilaterally. No VTE prophylaxis required. Medication's Wasted: Heparin = 1000 units. Total IV fluids: 224 mL. Contrast type used: Visipaque 320 mgI/mL, 500 mL bottle. Contrast Material : Visipaque 240 ml. A Suture was successful obtaining hemostatsis at the Right Femoral artery insertion site. Post-op diagnosis: severe acute on chronic limb ischemia. thrombectomy , GLUE DRIER OPERATOR of SFA, TPA, and AT. Complications: none. Estimated blood loss: 5mL-10mL. Procedure completed. Patient transferred by bed to ICU. Vital chart was stopped. Procedure Medications Start: 10:36 AM Stop: 10:36 AM Medication: Versed Amount: 1 mg Route: I.V. Start: 10:36 AM Stop: 10:36 AM Medication: Fentanyl Amount: 50 mcg Route: I.V. Start: 10:44 AM Stop: 10:44 AM Medication: Versed Amount: 1 mg Route: I.V. Start: 10:44 AM Stop: 10:44 AM Medication: Fentanyl Amount: 50 mcg Route: I.V. Start: 10:50 AM Stop: 10:50 AM Medication: Heparin Amount: 4000 units Route: I.V. Start: 10:56 AM Stop: 10:56 AM Medication: Versed Amount: 1 mg Route: I.V. Start: 10:56 AM Stop: 10:56 AM Medication: Fentanyl Amount: 50 mcg Route: I.V. Start: 11:01 AM Stop: 11:01 AM Medication: Nitrogylcerin Amount: 400 mcg Route: I.C. Start: 11:18 AM Stop: 11:18 AM Medication: Versed Amount: 1 mg Route: I.V. Start: 11:18 AM Stop: 11:18 AM Medication: Fentanyl Amount: 50 mcg Route: I.V. Start: 11:39 AM Stop: 11:39 AM Medication: Versed Amount: 1 mg Route: I.V. Start: 11:56 AM Stop: 11:56 AM Medication: Versed Amount: 1 mg Route: I.V. Start: 11:57 AM Stop: 11:57 AM Medication: Nitrogylcerin Amount: 400 mcg Route: I.C. Start: 12:03 PM Stop: 12:03 PM Medication: Heparin Amount: 4000 units Route: I.V. Start: 12:22 PM Stop: 12:22 PM Medication: Aspirin Amount: 325 mg Route: P.O. I, the attending physician, have reviewed and verified all procedure medications. Yes, all medications given per verbal order Report Signatures Finalized by Kingsley Nicolas MD on 03/16/2021 05:49 PM
--- NOTE | 2021-03-03 10:38 | P.HP_ITS ---
Providers/Chief Complaint Primary Care Provider: Randall Peoples MD Chief Complaint: LEFT LEG PAIN History of Present Illness Darlene Michael is a 60 year old female past medical history significant for extensive history of coronary artery disease status post stent to LAD and RCA complicated with stent thrombosis required intervention to the RCA in the near past, history of moderately depressed LV function 40%, history of nonlifestyle limiting claudication, history of tobacco abuse, COPD, systolic heart failure presented with acute left leg ischemia with mottled appearance of the left leg and foot with numbness paresthesia but intact motor. Vascular ultrasound revealed no flow beyond left external iliac. I was called by ER nurse practitioner. I immediately saw the patient. She was also noted to be in atrial fibrillation which is newly onset. She was given 4000 heparin immediately and taken to the Casting Machine Operator after explaining in detail all risk benefit and alternative for the procedure. Right common femoral approach was adopted to perform aortogram with runoff. She was noted to have no flow beyond left external iliac artery. Without much difficulty I was able to cross into the left SFA however with somewhat difficulty I crossed into left anterior tibial vessel. Penumbra Catheter 8 was used for multiple runs starting from distal left external iliac into the popliteal vessel and in tibioperoneal trunk. Multiple organized clots were extracted. 5.0 x 220 Corcoran balloon was used in the left SFA. Diffuse proximal to distal SFA disease was noted. Patient was also noted to have subtotally occluded tibioperoneal trunk and no flow beyond it. Balloon angioplasty of the tibioperoneal trunk by using 3.0x60 and 4.0 x 60 mm Corcoran balloon was performed which resulted in excellent angiographic result. I then crossed into left anterior tibial vessel all the way into the arch multiple balloon angioplasty using 2.0 time 120 mm balloon was performed in the left anterior tibial vessel. Excellent angiographic result was obtained. Finally I treated left SFA with 6.0 x 220 mm Corcoran balloon at low but longer inflation. Excellent angiographic result with good flow was restored and left SFA all the way to the foot showing good two-vessel runoff including anterior and posterior tibial arteries. A total of 12,000 units of heparin was used during the procedure. Patient was then transferred in a stable condition to the ICU with the right groin sheath in place. He is already on Plavix. Extra 325 mg of aspirin was given. Review of Systems Const: Denies: fever(s), chills, body aches, fatigue or malaise Eyes: Denies: change in vision or blurry vision Card: Reports: acrocyanosis (reports this morning L foot was blue); Denies: chest pain, palpitations, irregular heart rhythm, edema, swelling of feet/ankles, lightheadedness, syncope, pre-syncope, dyspnea on exertion or orthopnea Resp: Denies: dyspnea, productive cough, non-productive cough, hemoptysis or chest congestion GI: Denies: abdominal pain, nausea or vomiting Musc: Reports: extremity pain and extremity swelling (feels like L RADHA is swol pierre); Denies: neck pain, back pain, joint pain, joint swelling, joint redness, joint warmth or limited range of motion Skin/Breast: Denies: rash Neuro: Reports: numbness in extremities (subsided now but states earlier L LE was numb); Denies: headache(s) Medications/Allergies Home Medications Medication Instructions Recorded Confirmed Last Taken Type aspirin 81 mg tablet,delayed 81 mg PO DAILY@0700 10/17/19 03/03/21 02/10/21 History release nitroglycerin 0.4 mg sublingual 0.4 mg SUBLINGUAL Q5M PRN 10/17/19 03/03/21 Unknown History tablet potassium chloride 10 mEq 10 meq PO DAILY@0700 01/23/20 03/03/21 02/10/21 History tablet,extended release metoprolol succinate 100 mg 50 mg PO DAILY #45 tab 01/01/21 03/03/21 02/10/21 Rx tablet,extended release 24 hr clopidogrel 75 mg PO DAILY@0700 02/10/21 03/03/21 02/10/21 History lisinopril 2.5 mg PO DAILY@0700 02/10/21 03/03/21 02/10/21 History lovastatin 40 mg PO DAILY@0700 02/10/21 03/03/21 02/10/21 History tamsulosin [Flomax] 0.4 mg PO DAILY #30 cap 02/10/21 03/03/21 Unknown Rx furosemide 20 mg tablet 20 mg PO DAILY@0700 #90 tab 02/11/21 03/03/21 Unknown Rx Allergies Allergy/AdvReac Type Severity Reaction Status Date / Time No Known Allergies Allergy Verified 01/23/20 13:43 PFSH Acute PFSH: Medical History (Reviewed 02/10/21 @ 20:59 by Demarco Zhou MD, [facility] [place] ASHD (arteriosclerotic heart disease) Congestive heart failure Dyslipidemia Epistaxis HTN (hypertension) Ischemic cardiomyopathy Palpitations Surgical History (Reviewed 02/10/21 @ 20:59 by Demarco Zhou MD, [facility] [place] S/P angioplasty with stent Family History (Reviewed 02/10/21 @ 20:59 by Demarco Zhou MD, [facility] [place] Father CAD (coronary artery disease) Hypertension CHF (congestive heart failure) S/P CABG (coronary artery bypass graft) Mother Cancer BREAST CA Social History (Reviewed 02/10/21 @ 20:59 by Demarco Zhou MD, [facility] [place] Smoking and tobacco status: current every day smoker cigarettes Alcohol intake: never Marital status: Single Current occupational status: employed Vitals/I&O/Wt Last Vital Signs Temp 98.0 F 03/03/21 07:57 Pulse 90 03/03/21 08:54 Resp 15 03/03/21 08:54 BP 123/70 03/03/21 08:54 Pulse Ox 98 03/03/21 08:54 Weight last 48 hrs Weight 165 lb Physical Exam Narrative: EXAM NARRATIVE: GENERAL: Patient is alert, awake and oriented x3. Moderate distress when examined in the ER. NECK: No jugular vein distension. HEENT: No cyanosis. No icterus. No pallor. HEART: Regular S1 and S2. No murmur, rub or gallop. LUNGS: Clear to auscultate bilaterally. ABDOMEN: Soft, nontender and nondistended. Positive bowel sounds. No guarding, rebound or tenderness. CENTRAL NERVOUS SYSTEM: Grossly nonfocal. EXTREMITIES: Lower extremities mottled appearance of left foot cold left leg but intact motor. Tender and painful left cough. Patient able to move the left leg sensation was intact. No pulses palpable in the left leg. Right leg bhavani eared to be of normal color temperature and faint anterior posterior tibial pulse. Const: COMMON NORMALS: alert Resp: COMMON NORMALS: clear to auscultation bilaterally AUSCULTATION: clear to auscultation bilaterally Neuro: SENSORIUM/ORIENTATION: Yes alert Data : 03/03/21 08:30 03/03/21 17:26 A&P Assessment and plan (1) Ischemia of left lower extremity: As above patient underwent thrombectomy and balloon angioplasty of left SFA popliteal tibioperoneal trunk and anterior tibial artery. Excellent angiographic result with rastafari of flow was achieved. Patient was able to move leg without any damage to motor or sensory. Continue aspirin clopidogrel add statin. Consider adding apixaban. Most likely acute on chronic peripheral arterial disease complicated with possible embolic phenomena need to rule out cardiac causes such as new onset of A. fib. Patient is coagulated anyway. Status: Acute (2) Congestive heart failure: Appear to be euvolemic continue current regimen Status: Acute Qualifiers: Heart failure type: systolic Heart failure chronicity: chronic Qualified Code(s): I50.22 - Chronic systolic (congestive) heart failure (3) New onset atrial fibrillation: Will titrate medicine to rate control. Patient has been anticoagulated with heparin we will switch her to apixaban for long-term. Status: Acute (4) Ischemic cardiomyopathy: Appear to be stable continue with current regimen appear to be stable continue current regimen Status: Acute (5) HTN (hypertension): Well-controlled continue current regimen . Status: Acute Qualifiers: Hypertension type: essential hypertension Qualified Code(s): I10 - Essential (primary) hypertension Attestations Medical Necessity Statement*: I am expecting her stay to cross more than 1 midnight Coding Level of Care Code New Pt Acute [place] for Carlos Salgado Patient Type New History Detailed Exam Detailed Medical Decision Making High Complexity Diagnoses Ischemia of left lower extremity I99.8 Congestive heart failure I50.22 Heart failure type: systolic Heart failure chronicity: chronic New onset atrial fibrillation I48.91 Ischemic cardiomyopathy I25.5 HTN (hypertension) I10 Hypertension type: essential hypertension
--- NOTE | 2021-03-03 10:38 | W.PM.OPSUD ---
Surgery/Procedure H&P Update DATE OF PROCEDURE: March 03, 2021 DATE H&P PERFORMED: 03/03/21 H&P UPDATE INFORMATION: I have reviewed H&P completed within last 30 days and I have examined patient prior to procedure PREOP DIAGNOSIS: Acute left leg/ischemia/thromboembolic phenomena, leg pain PATIENT REASSESSED PRIOR TO SEDATION, WITH NO CHANGE NOTED: Yes PHYSICAL EXAM: alert, oriented x 3 and clear to auscultation bilaterally AIRWAY EVAL/ANESTHESIA PLAN: ASA II, Risks, benefits & alternatives of sedation and/or procedure discussed and Patient agrees to continue as planned
--- NOTE | 2021-03-03 14:03 | PC.NURSE ---
I was called by YADIRA Luevano, to assess patient due to stroke like symptoms, concern for right facial droop, and slurred speech. I assessed patient. Patient stated age as 61 years old and had slight sensation changes to RIGHT leg. Patient noted to have neuropathy and just had procedure done on ble. No other findings noted. Family and Dr. Nicolas at bedside. Educated on possibility of slight TIA and procedural medications/sedation. Family educated to notify primary nurse if symptoms return.
--- NOTE | 2021-03-03 15:49 | CTR_ITS ---
PROCEDURE INFORMATION: Exam: CT Angiography Head With Contrast, Arteriography Exam date and time: 03/03/2021 3:49 PM Age: 60 years old Clinical indication: Speech disturbance and weakness; Aphasia; Patient HX: History--rt side weaknes, speech disturbance. Peripheral run off this am in left leg; Additional info: AMS, CVA SX TECHNIQUE: Imaging protocol: Computed tomography angiography of the head with contrast. Exam focused on the arteries. 3D rendering (Not supervised by radiologist): MIP and/or 3D reconstructed images were created by the technologist. Radiation optimization: All CT scans at this facility use at least one of these dose optimization techniques: automated exposure control; mA and/or kV adjustment per patient size (includes targeted exams where dose is matched to clinical indication); or iterative reconstruction. Contrast material: OMNI 350; Contrast volume: 95 ml; Contrast route: INTRAVENOUS (IV); COMPARISON: CT head wo con* [id number] 03/03/2021 4:07 PM RADIATION DOSE METRICS: Total DLP (mGy-cm): 2500.87 FINDINGS: ANTERIOR CIRCULATION: Right internal carotid artery: Moderate stenosis of bilateral internal carotid arteries with calcified plaque. Right middle cerebral artery: There is occlusion/severe stenosis of the M2 segment of right middle cerebral artery with reconstitution distally . Right anterior cerebral artery: Unremarkable. No occlusion or significant stenosis. No aneurysm. Left internal carotid artery: Unremarkable. Intracranial segment is patent with no significant stenosis. No aneurysm. Left middle cerebral artery: Unremarkable. No occlusion or significant stenosis. No aneurysm. Left anterior cerebral artery: Unremarkable. No occlusion or significant stenosis. No aneurysm. POSTERIOR CIRCULATION: Right vertebral artery: Moderate multifocal stenosis of the right vertebral artery with calcified plaque. Right vertebral artery continues as the basilar artery. Left vertebral artery: Left vertebral artery ends in PICA. Basilar artery: There is complete occlusion of the distal basilar artery Right posterior cerebral artery: Unremarkable. No occlusion or significant stenosis. No aneurysm. Left posterior cerebral artery: Unremarkable. No occlusion or significant stenosis. No aneurysm. IMPRESSION: 1. Occlusion of the distal basilar artery. 2. Occlusion/severe stenosis of the M2 segment of right middle cerebral artery with reconstitution of the distal branches. PROCEDURE INFORMATION: Exam: CT Angiography Neck With Contrast Exam date and time: 03/03/2021 3:49 PM Age: 60 years old Clinical indication: Speech disturbance and weakness; Aphasia; Patient HX: History--rt side weaknes, speech disturbance. Peripheral run off this am in left leg; Additional info: AMS, CVA SX TECHNIQUE: Imaging protocol: Computed tomography angiography of the neck with contrast. 3D rendering (Not supervised by radiologist): MIP and/or 3D reconstructed images were created by the technologist. Radiation optimization: All CT scans at this facility use at least one of these dose optimization techniques: automated exposure control; mA and/or kV adjustment per patient size (includes targeted exams where dose is matched to clinical indication); or iterative reconstruction. Contrast material: OMNI 350; Contrast volume: 95 ml; Contrast route: INTRAVENOUS (IV); COMPARISON: CT head wo con* [id number] 03/03/2021 4:07 PM RADIATION DOSE METRICS: Total DLP (mGy-cm): 2500.87 FINDINGS: Right common carotid artery: No stenosis. No dissection or occlusion. Right internal carotid artery: No stenosis of the extracranial segment. No dissection or occlusion. Right external carotid artery: No occlusion or stenosis of the origin. Left common carotid artery: No stenosis. No dissection or occlusion. Left internal carotid artery: Approximately 25% stenosis of the proximal left internal carotid artery with calcified plaque. Left external carotid artery: No occlusion or stenosis of the origin. Right vertebral artery: No stenosis. No dissection or occlusion. Left vertebral artery: No stenosis. No dissection or occlusion. Soft tissues: Normal. No significant soft tissue swelling. Bones/joints: No acute fracture. CT/CT angio headneck* [id number] IMPRESSION: 1. Right: No significant stenosis of the right internal carotid artery and vertebral artery. 2. Left: Approximately 25% stenosis of the left internal carotid artery proximally. Vertebral artery is patent. REFERENCES: NASCET CRITERIA. The degree of internal carotid artery stenosis is based on NASCET criteria. Normal is no stenosis. Mild is less than 50% stenosis. Moderate is 50-69% stenosis. Severe is 70% to 99% stenosis. Total occlusion is no detectable patent lumen. Radiation Dose CTDIVOL = (mGy): DLP = 2500.87~2500.87 (mGy-cm)
--- NOTE | 2021-03-03 15:50 | CTR_ITS ---
PROCEDURE INFORMATION: Exam: CT Head Without Contrast Exam date and time: 03/03/2021 3:50 PM Age: 60 years old Clinical indication: Speech disturbance and weakness, extremity; Right; Patient HX: History--rt side weaknes, speech disturbance. Peripheral run off this am in left leg; Additional info: CVA SX TECHNIQUE: Imaging protocol: Computed tomography of the head without contrast. Radiation optimization: All CT scans at this facility use at least one of these dose optimization techniques: automated exposure control; mA and/or kV adjustment per patient size (includes targeted exams where dose is matched to clinical indication); or iterative reconstruction. Other technique: STROKE PROTOCOL was implemented. COMPARISON: MRI Neck/Face/Orbit w/wo [id number] 03/23/2017 1:54 PM RADIATION DOSE METRICS: Total DLP (mGy-cm): 1134.11 FINDINGS: Brain: Normal. No hemorrhage. Unremarkable white matter. No mass effect. Cerebral ventricles: No ventriculomegaly. Paranasal sinuses: The contrast from the prior study is seen in the intracranial arteries and venous sinuses. Mastoid air cells: Visualized mastoid air cells are well aerated. Bones/joints: Unremarkable. No acute fracture. Soft tissues: Unremarkable. CT/CT head wo con* [id number] IMPRESSION: No acute intracranial abnormality. ASSESSMENT: ASPECTS ([place] Stroke Program Early CT Score) is 10. Radiation Dose CTDIVOL = (mGy): DLP = 1134.11 (mGy-cm)
[2021-03-03 16:06] LABS: Partial Thromboplastin Time 186.4 SECONDS (23.9-36.7)
[2021-03-03] MEDS: iohexol 350 mg/mL 100 mL Btl IV (16:14)
[2021-03-03] MEDS: ondansetron 2 mg/ML SDV 2 mL 4 MG IVP (17:02)
[2021-03-03] MEDS: naloxone 0.4 mg/ml SDV 0.1 MG IVP (17:03)
--- NOTE | 2021-03-03 17:46 | P.PNCC_ITS ---
Stroke Alert Activation ED Arrival Date: 03/03/21 ED Arrival Time: 15:50 Last Known Normal/at Baseline: < 1 hour ago Other Last Known Well Infomation: The policy service coordinator and Dr. Dennise Nicolas called me at 3:50 PM about this 60-year-old woman who was neurologically well until 330 this afternoon. She presented at 8:00 this morning with an ischemic left leg and was taken to the Healthcare Account Manager, right groin puncture was accomplished and she had evacuation of her occluded left iliac artery and stenting. She still has a sheath in her right femoral artery. She was visiting with her 2 daughters at 330 this afternoon when she complained of an intense headache in the right religion and lost the ability to speak. Dr. Nicolas came promptly to the bedside and examined the patient and called the policy service coordinator who confirmed right hemiparesis and inability to speak. I joined the stroke team in the CAT scan suite and took time to examine her prior to her CAT scan. The NIH stroke scale from that time is recorded below. She had profound dysarthria versus receptive and expressive aphasia (she was agitated and would not follow simple commands), relative right hemiparesis (though her newspaper columnist strength was good) and she was nauseated and threatening to vomit. I talked with Dr. Nicolas and he did not think that this patient was in any way a candidate for peripheral TPA because she had received a large dose of heparin, her PTT was still markedly elevated (186) and she still had an arterial line in the right radial artery and sheath present in the right femoral artery. CT scan of the head was unremarkable. CT angiogram shows occlusion of the distal basilar artery and severe stenosis of the right middle cerebral artery. The left middle cerebral artery is unremarkable. I returned to the bedside when the CT angiogram was complete. I spoke with and told him that I plan to consult [facility] about whether this patient would be a candidate for embolectomy as we can assume that with no further heparin her PTT should normalize this afternoon. I talked with the neurologist on-call for stroke at [facility] and I am still in the process of discussion. The patient's neurologic status improved by placing her flat and increasing IV fluids. She is no longer vomiting. She is following simple commands. She shakes and nods her head appropriately but cannot speak. She cannot protrude her tongue. She has skew deviation of the eyes. Pupils equal and reactive. She still has relative right hemiparesis. No sensory deficit. Stroke Alert Activated by: Dr. Dennise Nicolas Stroke Alert Activation Time: 15:51 Stroke MD @ Bedside Time: 15:55 NIH Stroke Scale Time: 15:55 NIH stroke score NIHSS: Level Of Consciousness - 1a: 0 Level Of Consciousness Questions - 1b: Neither Correct Level Of Consciousness Commands - 1c: Neither Correct Best Gaze - 2: Partial Gaze Palsy Facial Palsy - 4: Minor Paralysis Motor Arm Right - 5: Effort Against [place] Motor Arm Left - 5: No Drift Motor Leg Right - 6: Effort Against [place] Motor Leg Left - 6: No Drift Limb Ataxia - 7: Absent Sensory - 8: Normal Best Language - 9: Severe Aphasia Dysarthia - 10: Severe Dysarthia Extinction And Inattention - 11: 0 Stroke Alert Data/Treatment Time to CT of Head: 15:50 CT Results Time: 16:34 CT Impression: CT head no signs of ischemia. CTA : 1. Occlusion of the distal basilar artery. 2. Occlusion/severe stenosis of the M2 segment of right middle cerebral artery with reconstitution of the distal branches. Stroke Risk Factors: atrial fibrillation, coronary artery disease, hypertension, previous [place] and smoker tPA Contraindication: tPA Contraindication: Medical contraindication (Elevated PTT, 2 arterial sticks) tPA Admin Prior to Arrival: No Patient & Family Educated on: Paris Mandujano Other Patient & Family Education: Family agreed to transfer to [facility]. I spoke with Dr. Montoya, who reviewed the images and agreed to transfer for evaluation of potential embolectomy or treatment of the basilar artery. Critical Care Time Critical Care Time: 30 - 74 mins A&P Assessment and plan (1) Basilar artery thrombosis: This is a 60-year-old woman with underlying coronary disease who presented with an ischemic left leg and diffuse clot in her left femoral artery. That was treated with embolectomy successfully with judaism of blood flow to the left leg. She was in new atrial fibrillation. At 330 this afternoon she developed the acute onset of right hemiparesis and she would not speak. My initial thought at the bedside was that she was having a left middle cerebral artery stroke, that she was not a TPA candidate, and we therefore did CTA. Her basilar artery appears to be a acutely occluded and on reexamination this afternoon she is much more alert, can nod her head appropriately but she has skew deviation of the eyes and occlusion of the basilar artery would explain her intractable vomiting that she has had this afternoon. I have flattened the bed and given her a large bolus of normal saline and asked that her severe headache be treated with a small dose of morphine. I talked with , who has agreed to accept her at [facility] this afternoon to consider embolectomy or other procedural treatment of her acute basilar artery thrombosis. She also has M2 occlusion of the right middle cerebral artery but clinically I am not confident that she is having any symptoms referable to that. I would say that she was agitated this afternoon in the CAT scan suite initially but I attributed that to her nausea and inability to speak. She is much calmer now. I have reviewed these events with Dr. Cortney Nicolas and with Dr. Avendano Status: Acute (2) Acute right arterial ischemic stroke, middle cerebral artery (MCA): Status: Acute Coding Level of Care Code Acute Texture Artist for Carlos Salgado Diagnoses Basilar artery thrombosis I65.1 Acute right arterial ischemic stroke, middle cerebral artery (MCA) I63.511
--- NOTE | 2021-03-03 17:54 | PC.NURSE ---
2380.family here, noted some facial drooping. unable to get pt. to smile. did cargo router with both hands left slower than right. left leg good d.p. pulse. doppler right d.p. pulse.
[2021-03-03 17:55] LABS: ABG PCO2 37.7 mmHg (35-45); Arterial Blood Gas Hematocrit 41.9 % (37-47); Base Excess ABG -1.4 mmol/L (-2.0-2.0); Blood Gas Allen Test Pos; Blood Gas Operator Identificat MONRO; Blood Gas Sample Site Radial, left; Blood Gas Sample Type Arterial; HCO3 ABG 23.1 mmol/L (22-26); Oxygen Device ROOM AIR; PO2 ABG 69.3 mmHg (80.0-100.0)
--- NOTE | 2021-03-03 17:58 | PC.NURSE ---
1415. alert. no deficits. sand wich in and coffee. shirin. well.
[2021-03-03 17:59] LABS: Alanine Aminotransferase 11 U/L (0-33); Albumin Level 3.4 g/dL (3.5-5.2); Alkaline Phosphatase 66 IU/L (35-105); Anion Gap 13.6 (5-19); Aspartate Amino Transferase 16 U/L (0-32); Blood Urea Nitrogen 11 mg/dL (8-23); Calcium 8.1 mg/dL (8.5-10.5); Carbon Dioxide 22 mmol/L (22-29); Chloride 106 mmol/L (98-107); Creatinine Clr Calc Pharmacy 86.1863; Glomerular Filtration Rate 84.8 mL/min (90-130); Glucose 116 mg/dL (65-115); Osmolality Calculated 286 mOsm/kg (285-295); Potassium 3.6 mmol/L (3.5-5.1); Sodium 138 mmol/L (136-145); Total Bilirubin 0.4 mg/dL (0.15-1.2); Total Protein 6.4 g/dL (6.6-8.7)
--- NOTE | 2021-03-03 17:59 | PC.NURSE ---
1445 resting quietly with eyes closed. resp. non labored.
--- NOTE | 2021-03-03 18:01 | PC.NURSE ---
1500 conts resting quietly with eyes closed.
--- NOTE | 2021-03-03 18:02 | PC.NURSE ---
1530 family summoned for help. snoring resp. restless. unable to follow commands at this time.
--- NOTE | 2021-03-03 18:03 | PC.NURSE ---
1700 conts to be less responsive. unable to talk, mumbles. has been very nauseated, ct done. at times will hold up 2 fingers . smiles at funny conversation.. acknowledged she needed to void. nodded no to rivera catheter.
[2021-03-03 18:17] LABS: Glucose Point of Care 116 mg/dL (70-110)
[2021-03-03] MEDS: morphine 4 mg/mL SDV 1 mL 2 MG IVP (18:22)
--- NOTE | 2021-03-03 18:36 | PC.NURSE ---
preparing for transfer to [place].
--- NOTE | 2021-03-03 18:40 | PM.TDS ---
Transfer Summary Providers Date of Admission: 03/03/21 10:44 Date of Discharge: 03/03/21 Attending Provider at Admission: Kingsley Nicolas MD Attending Provider at Transfer: Kingsley Nicolas MD Primary Care Provider: Randall Peoples MD Anticipated Date of Transfer: Anticipated date of transfer: 03/03/21 Receiving Facility & Provider: Receiving Provider: [] Receiving facility: [] Diagnoses at Discharge Discharge Diagnosis (1) Basilar artery thrombosis: Status: Acute (2) Acute right arterial ischemic stroke, middle cerebral artery (MCA): Status: Acute Reason for Visit Reason for Visit: LEFT LEG PAIN Hospital Course Hospital Course 60-year-old femaleA past medical history significant for hypertension, dyslipidemia, coronary artery disease hx of multiple stents, ischemic cardiomyopathy with a last known EF of 40%Who presented to the hospital today with left lower extremity pain.This was associated with numbness as well. Laboratory work upon arrival showed a WBC of 8.5, hemoglobin 14.6, hematocrit of 43.3 and platelet count of 241.Sodium 138, potassium 3.6, chloride 106, bicarb 22, BUN 11 and creatinine of 0.7. Glucose of 116. LFTs were within normal limits. Imaging studies includedLeft lower extremity venous duplex which did not show any evidence of DVT. Subsequently a lower extremity arterial duplex was done which shows features suggestive of thrombus occluding the distal iliac artery on the left side with no significant flow in the femoral, popliteal or infrapopliteal vessels. Additionally on arrival patient was noted to have atrial fibrillationWith rapid ventricular response. This was a new diagnosis for patient.[facility] where peripheral intervention was performed. During procedure she was given heparin. Shortly after procedure she was noted to have aphasia with right-sided weakness.Code stroke was called and Neurology was notified. Head CT without contrast did not show any evidence of acute hemorrhage.Patient was taken for a CT a of head and neckWhich showed an occlusion of the distal basilar artery as well as occlusion/severe stenosis of the M2 segment of the right middle cerebral artery with reconstitution of distal branches. No significant flow-limiting stenosis was noted in the carotids. Patient was not a candidate for tPA as PTT was elevated at 186. This was again due to heparin as noted above. Neurology evaluation was again obtained. Case was discussed with [facility] Neurology who accepted patient in transfer for evaluation of selective thrombectomy. Patient was arranged for transfer to [facility] ER. Accepting physician - Dr. Carroll. Physical Exam Narrative: EXAM NARRATIVE: Level Of Consciousness - 1a: 0 Level Of Consciousness Questions - 1b: Neither Correct Level Of Consciousness Commands - 1c: Neither Correct Best Gaze - 2: Partial Gaze Palsy Facial Palsy - 4: Minor Paralysis Motor Arm Right - 5: Effort Against Kelford Motor Arm Left - 5: No Drift Motor Leg Right - 6: Effort Against [place]elf[place] Motor Leg Left - 6: No Drift Limb Ataxia - 7: Absent Sensory - 8: Normal Best Language - 9: Severe Aphasia Dysarthia - 10: Severe Dysarthia Extinction And Inattention - 11: 0 General: Following commands however confused , aphasic HEENT:Grossly unremarkable ex.EOMI CVS : RRR Chest : Non-labored respiration Abd; Soft, NT, ND Ext: Distal pulse 2+, no edema TS Data Data Completed and Pending: Completed Studies During Hospitalization Category Date Time Status CT head wo con* 7 0450 Stat Cat Scan 03/03/21 15:50 Completed CTA head neck [CT angio headneck* [id number]] Stat Cat Scan 03/03/21 15:49 [place] [address] Urge nt Ultrasound 03/03/21 08:06 [place] [id number] Urgent Ultrasound 03/03/21 08:06 Completed Pending at discharge Category Date Time Status [facility] request for service Stat Exams 03/03/21 10:18 Taken Basic Metabolic P nick AM LABS Lab 03/04/21 04:00 Ordered Complete Blood Co unt w/Auto AM LABS Lab 03/04/21 04:00 Ordered PTT [Partial Thro mboplastin Time] S tat Lab 03/03/21 17:26 Received Labs from last 24 hours 03/03/21 03/03/21 03/03/21 17:42 17:26 17:26 WBC RBC Hgb Hct MCV MCH MCHC RDW Plt Count MPV Neut % (Auto) Lymph % (Auto) Isabela % (Auto) Eos % (Auto) Baso % (Auto) Neut # (Auto) Lymph # (Auto) Isabela # (Auto) Eos # (Auto) Baso # (Auto) Nucleated RBC % (a uto) Nucleated RBCs # PT INR APTT Pending Specimen Type Arterial Sample Site Radial, left ABG pH 7.40 ABG pCO2 37.7 ABG pO2 69.3 L ABG HCO3 23.1 ABG Base Excess -1.4 Vin Test Pos Hematocrit 41.9 O2 Delivery Device Room air FiO2 21.0 Test Technician ID Monro Sodium 138 Potassium 3.6 Chloride 106 Carbon Dioxide 22 Anion Gap 13.6 BUN 11 Creatinine 0.7 GFR Calculation 84.8 L Glucose 116 H POC Glucose Calculated Osmolal ity 286 Calcium 8.1 L Total Bilirubin 0.4 AST 16 ALT 11 Alkaline Phosphata se 66 Total Protein 6.4 L Albumin 3.4 L Globulin 3.0 03/03/21 03/03/21 03/03/21 16:54 14:55 08:30 WBC RBC Hgb Hct MCV MCH MCHC RDW Plt Count MPV Neut % (Auto) Lymph % (Auto) Isabela % (Auto) Eos % (Auto) Baso % (Auto) Neut # (Auto) Lymph # (Auto) Isabela # (Auto) Eos # (Auto) Baso # (Auto) Nucleated RBC % (a uto) Nucleated RBCs # PT 13.20 INR 0.97 APTT 186.4 H* D 22.1 L Specimen Type Sample Site ABG pH ABG pCO2 ABG pO2 ABG HCO3 ABG Base Excess Vin Test Hematocrit O2 Delivery Device FiO2 Test Technician ID Sodium Potassium Chloride Carbon Dioxide Anion Gap BUN Creatinine GFR Calculation Glucose POC Glucose 116 H Calculated Osmolal ity Calcium Total Bilirubin AST ALT Alkaline Phosphata se Total Protein Albumin Globulin 03/03/21 03/03/21 08:30 08:30 WBC 8.5 RBC 4.55 Hgb 14.6 Hct 43.3 MCV 95.2 MCH 32.1 MCHC 33.7 RDW 12.1 Plt Count 241 MPV 10.1 Neut % (Auto) 79.2 Lymph % (Auto) 11.0 Isabela % (Auto) 7.8 Eos % (Auto) 1.2 Baso % (Auto) 0.6 Neut # (Auto) 6.69 Lymph # (Auto) 0.9 Isabela # (Auto) 0.7 Eos # (Auto) 0.1 Baso # (Auto) 0.1 Nucleated RBC % (a uto) 0 Nucleated RBCs # 0.0 PT INR APTT Specimen Type Sample Site ABG pH ABG pCO2 ABG pO2 ABG HCO3 ABG Base Excess Vin Test Hematocrit O2 Delivery Device FiO2 Test Technician ID Sodium 140 Potassium 4.1 Chloride 104 Carbon Dioxide 26 Anion Gap 14.1 BUN 13 Creatinine 0.8 GFR Calculation 72.7 L Glucose 119 H POC Glucose Calculated Osmolal ity 291 Calcium 8.8 Total Bilirubin 0.4 AST 18 ALT 14 Alkaline Phosphata se 75 Total Protein 7.2 Albumin 4.1 Globulin 3.1 Vitals: Last Vital Signs Temp 98.0 F 03/03/21 07:57 Pulse 89 03/03/21 15:15 Resp 20 H 03/03/21 15:15 BP 99/75 03/03/21 15:15 Pulse Ox 93 03/03/21 15:15 TS Medications Medications Home Medications aspirin 81 mg tablet,delayed release 81 mg PO DAILY@0700 10/17/19 [History Confirmed 03/03/21] nitroglycerin 0.4 mg sublingual tablet 0.4 mg SUBLINGUAL Q5M PRN 10/17/19 [History Confirmed 03/03/21] potassium chloride 10 mEq tablet,extended release 10 meq PO DAILY@0700 01/23/20 [History Confirmed 03/03/21] metoprolol succinate 100 mg tablet,extended release 24 hr 50 mg PO DAILY #45 tab 01/01/21 [Rx Confirmed 03/03/21] clopidogrel 75 mg PO DAILY@0700 02/10/21 [History Confirmed 03/03/21] lisinopril 2.5 mg PO DAILY@0700 02/10/21 [History Confirmed 03/03/21] lovastatin 40 mg PO DAILY@0700 02/10/21 [History Confirmed 03/03/21] tamsulosin [Flomax] 0.4 mg PO DAILY #30 cap 02/10/21 [Rx Confirmed 03/03/21] furosemide 20 mg tablet 20 mg PO DAILY@0700 #90 tab 02/11/21 [Rx Confirmed 03/03/21] Active Medications Hydrocodone Bitart/Acetaminophen (Hydrocodone-Acetaminophen 5-325 Mg Tablet) 1 tab PO Q8H PRN PRN Reason: kidney stones Al Hydrox/Mg Hydrox/Simethicone (Umfi-Xmw-Zosofvxhd-Jamie 30 Ml Udc) 30 ml PO Q15M PRN PRN Reason: INDIGESTION Alprazolam (Alprazolam 0.25 Mg Tablet) 0.25 mg PO TID PRN PRN Reason: ANXIETY Apixaban (Apixaban 5 Mg Tablet) 5 mg PO BID@0900,2100 MARIAMA Aspirin (Aspirin 81 Mg Ec Tablet) 81 mg PO DAILY@0700 [facility] Atorvastatin Calcium (Atorvastatin 40 Mg Tablet) 20 mg PO DAILY@0700 [facility] Atropine Sulfate (Atropine 1 Mg/Ml Sdv 1 Ml) 0.5 mg IVP PRN PRN PRN Reason: Symptomatic bradycardia Clopidogrel Bisulfate (Clopidogrel 75 Mg Tablet) 75 mg PO DAILY@0700 [facility] Sodium Chloride (Sodium Chloride 0.9%) 1,000 mls @ 100 mls/hr IV .Q10H [facility] Magnesium Hydroxide (Magnesium Hydroxide 30 Ml Udc) 30 ml PO DAILY PRN PRN Reason: CONSTIPATION Metoprolol Succinate (Metoprolol Succinate Er (24 Hr) 50 Mg Tablet) 50 mg PO DAILY [facility] Morphine Sulfate (Morphine 4 Mg/Ml Sdv 1 Ml) 2 mg IVP Q4H PRN PRN Reason: SEVERE PAIN Last Admin: 03/03/21 18:22 Dose: 2 mg Documented by: Naloxone HCl (Naloxone 0.4 Mg/Ml Sdv) 0.1 mg IVP Q2M PRN PRN Reason: RESPIRATORY RATE < 8/MIN Last Admin: 03/03/21 17:03 Dose: 0.1 mg Documented by: Nitroglycerin (Nitroglycerin 0.4 Mg Sublingual Tablet) 0.4 mg SUBLINGUAL Q5M PRN PRN Reason: Chest Pain Ondansetron HCl (Ondansetron 2 Mg/Ml Sdv 2 Ml) 4 mg IVP Q4H PRN PRN Reason: NAUSEA AND VOMITING Last Admin: 03/03/21 17:02 Dose: 4 mg Documented by: Discharge Plan Discharge Patient Disposition: Xfer Other Condition: Fair Prescriptions: Continued aspirin [Adult Low Dose Aspirin] 81 mg tablet,delayed release (DR/EC) 81 mg PO DAILY@0700 RF: 0 nitroglycerin [Nitrostat] 0.4 mg tablet, sublingual 0.4 mg SUBLINGUAL Q5M PRN (Reason: Chest Pain) RF: 0 metoprolol succinate 100 mg tablet extended release 24 hr 50 mg PO DAILY Qty: 45 RF: 3 lovastatin 40 mg tablet 40 mg PO DAILY@0700 RF: 0 clopidogrel 75 mg tablet 75 mg PO DAILY@0700 RF: 0 Discontinued potassium chloride [Klor-Con 10] 10 mEq tablet extended release 10 meq PO DAILY@0700 RF: 0 furosemide 20 mg tablet 20 mg PO DAILY@0700 Qty: 90 RF: 3 lisinopril 2.5 mg tablet 2.5 mg PO DAILY@0700 RF: 0 tamsulosin [Flomax] 0.4 mg capsule 0.4 mg PO DAILY Qty: 30 RF: 0 Discharge Orders: Discharge Order (Routine); Ordered 03/03/21 Ordered By: Bj Avendano Referrals: Randall Peoples MD [Primary Care Provider] - Activity Restrictions/Additional Instructions: Transfer to [facility] hospital ER - Accepting physician Dr. Carroll Transfer Attestations Time Spent in Transfer Care*: critical care time Critical Care Time (min): 65 Specific Discharge Activities: Specific discharge activities: educating patient, educating and/or supporting family/caregiver, discussing with pcp/other providers, discussing with supportive employment case manager/social workers/dc planners, documenting/other paperwork and evaluating patient/reviewing data Status at Transfer: Cognitive status at transfer: moderately impaired cognition, Behavioral status at transfer: cooperative, Functional status at transfer: other (unable to full assess) Overall status at transfer: patient is not back to baseline Quality Metrics Clinical Quality Measures: During this hospital stay, did patient experience: Stroke Contraindication to Antithrombotic: Antithrombotic prescribed Contraindication to Anticoagulation: Anticoagulation prescribed Contraindication to Statin: Statin prescribed Contraindication to tPA: Treatment not indicated Reason rehab assessment not done: Other (Not done - transfered to [facility] ) Coding Level of Care Code Acute Fryer Operator for Carlos Salgado Diagnoses Basilar artery thrombosis I65.1 Acute right arterial ischemic stroke, middle cerebral artery (MCA) I63.511
[2021-03-03 19:04] LABS: Partial Thromboplastin Time 46.7 SECONDS (23.9-36.7)
--- NOTE | 2021-03-03 19:10 | PM.PN ---
Subjective Subjective: Interval history: I was called by ICU nurse as possible weakness of left arm. Along with stroke team I examined the patient at that time patient was alert oriented x3 no speech motor or sensory deficit noted. Since he was stable with continue to monitor her. She has new onset of atrial fibrillation but she was anticoagulated with heparin. Our plan was to switch her to apixaban. After half an hour stroke alert was called as patient has jumbled speech dysarthria. CT scan was performed which confirmed middle cerebral artery thrombus. Dr. Calderón our neurology on-call immediately saw the patient. She was not thought to be a good candidate for TPA. Case was discussed with [facility] neurology on-call. She is being transferred for possible consideration of thrombectomy by neuro radiology or interventional neurology. I personally discussed complete treatment and coordinated treatment with patient her family including her daughter by bedside. They are satisfied and are in agreement with it. Vitals/I&O/Wt Last Vital Signs Temp 98.0 F 03/03/21 07:57 Pulse 89 03/03/21 15:15 Resp 20 H 03/03/21 15:15 BP 99/75 03/03/21 15:15 Pulse Ox 93 03/03/21 15:15 03/03/21 03/03/21 03/03/21 06:59 14:59 22:59 Intake Total 480 / 480 Output Total 300 / 300 Balance 180 / 180 Weight last 48 hrs Weight 165 lb Physical Exam Narrative: EXAM NARRATIVE: GENERAL: Patient responds to verbal command. She has nystagmus, she is in and out of consciousness and sleep. She has jumbled speech he moves around her extremities NECK: No jugular vein distension. HEENT: No cyanosis. No icterus. No pallor. HEART: Regular S1 and S2. No murmur, rub or gallop. LUNGS: Clear to auscultate bilaterally. ABDOMEN: Soft, nontender and nondistended. Positive bowel sounds. No guarding, rebound or tenderness. CENTRAL NERVOUS SYSTEM: As defined above EXTREMITIES: Lower extremities with 1+ edema bilaterally. Pulses palpable in the lower extremities, both dorsalis pedis and posterior tibial. Both lower extremity has good color warm and moist Const: COMMON NORMALS: alert Resp: COMMON NORMALS: clear to auscultation bilaterally AUSCULTATION: clear to auscultation bilaterally Neuro: SENSORIUM/ORIENTATION: Yes alert Data : 03/03/21 08:30 03/03/21 17:26 A&P Assessment and plan (1) Ischemia of left lower extremity: As above patient underwent thrombectomy and balloon angioplasty of left SFA popliteal tibioperoneal trunk and anterior tibial artery. Excellent angiographic result with zoroastrian of flow was achieved. Patient was able to move leg without any damage to motor or sensory. Continue aspirin clopidogrel add statin. Consider adding apixaban. Most likely acute on chronic peripheral arterial disease complicated with possible embolic phenomena need to rule out cardiac causes such as new onset of A. fib. Patient is coagulated anyway. Status: Acute (2) Congestive heart failure: Appear to be euvolemic continue current regimen Status: Acute Qualifiers: Heart failure type: systolic Heart failure chronicity: chronic Qualified Code(s): I50.22 - Chronic systolic (congestive) heart failure (3) New onset atrial fibrillation: Will titrate medicine to rate control. Patient has been anticoagulated with heparin we will switch her to apixaban for long-term. Status: Acute (4) Ischemic cardiomyopathy: Appear to be stable continue with current regimen appear to be stable continue current regimen Status: Acute (5) HTN (hypertension): Well-controlled continue current regimen . Status: Acute Qualifiers: Hypertension type: essential hypertension Qualified Code(s): I10 - Essential (primary) hypertension (6) Acute right arterial ischemic stroke, middle cerebral artery (MCA): As per neurology and hospitalist note patient is being transferred to [facility] for further care. Status: Acute Attestations Medical Necessity Statement*: As above Coding Level of Care Code Established Pt Acute Wheat Shipper for Carlos Salgado Patient Type Established History Comprehensive Exam Comprehensive Medical Decision Making High Complexity Diagnoses Ischemia of left lower extremity I99.8 Congestive heart failure I50.22 Heart failure type: systolic Heart failure chronicity: chronic New onset atrial fibrillation I48.91 Ischemic cardiomyopathy I25.5 HTN (hypertension) I10 Hypertension type: essential hypertension Acute right arterial ischemic stroke, middle cerebral artery (MCA) I63.511
--- NOTE | 2021-03-03 19:26 | PC.NURSE ---
teeth and phone with daughters. as well as clothing.
--- NOTE | 2021-03-06 12:03 | PC.RESP ---
SMOKING CESSATION AND PULMONARY REHAB INFORMATION SENT TO PATIENT.
== END 2021-03-03 19:21 | disposition short-term general hospital (02) | DRG 270 ==
LOC: ER 09:55 → CCL 10:18 → ICU 10:45
PROVIDERS: Hospitalist; Admitting Provider Internal Medicine Cardiovascular Disease; Emergency Provider Physician Assistant; PCP Internal Medicine; Visit Provider Internal Medicine Cardiovascular Disease
PROC: 04CL3ZZ Extirpation of Matter from Left Femoral Artery, Percutaneous Approach (ICD-10-PCS; principal; 2021-03-03 10:00)
PROC: 04CL3ZZ Extirpation of Matter from Left Femoral Artery, Percutaneous Approach (ICD-10-PCS; 2021-03-03 10:00)
DX: I70.222 Atherosclerosis of native arteries of extremities with rest pain, left leg (principal); I63.22 Cerebral infarction due to unspecified occlusion or stenosis of basilar artery; I50.22 Chronic systolic (congestive) heart failure; R47.01 Aphasia; G81.91 Hemiplegia, unspecified affecting right dominant side; I25.10 Atherosclerotic heart disease of native coronary artery without angina pectoris; Z95.5 Presence of coronary angioplasty implant and graft; F17.210 Nicotine dependence, cigarettes, uncomplicated; J44.9 Chronic obstructive pulmonary disease, unspecified; I11.0 Hypertensive heart disease with heart failure; I48.91 Unspecified atrial fibrillation; E78.5 Hyperlipidemia, unspecified; I25.5 Ischemic cardiomyopathy; R29.708 NIHSS score 8; I66.01 Occlusion and stenosis of right middle cerebral artery; I25.2 Old myocardial infarction
CPT/HCPCS: 36415; 36416; 36600; 37184; 37224; 37228; 70450; 70496; 70498; 75625; 75716; 80053; 82803; 82962; 85025; 85347; 85610; 85730; 93005; 93926; 93971; 96374; 99285; C1725; C1769; C1887; C1894; J1644; J2250; J2270; J2310; J2405; J3010; J3490; J7050; Q9967

== ENCOUNTER 2021-04-09 06:00 | Outpatient (RCR) | payer OTHER, SELFPAY | END 2021-04-12 23:59 | disposition home or self-care (01) | LOC: SR3 06:00 | PROVIDERS: PCP Internal Medicine; Referring Provider Physical Medicine & Rehabilitation; Visit Provider Physical Medicine & Rehabilitation | DX: I63.511 Cerebral infarction due to unspecified occlusion or stenosis of right middle cerebral artery (principal) | CPT/HCPCS: 96125; 97110; 97162; 97167 ==

== ENCOUNTER 2021-04-13 06:00 | Outpatient (RCR) | payer OTHER, MEDICAID, SELFPAY | END 2021-05-13 23:59 | disposition home or self-care (01) | LOC: SR3 06:00 | PROVIDERS: PCP Clinical Nurse Specialist Adult Health; Referring Provider Physical Medicine & Rehabilitation; Visit Provider Physical Medicine & Rehabilitation | DX: I63.511 Cerebral infarction due to unspecified occlusion or stenosis of right middle cerebral artery (principal); G81.94 Hemiplegia, unspecified affecting left nondominant side | CPT/HCPCS: 97110; 97129; 97130; 97530; 97535 ==

== ENCOUNTER → 2021-04-23 09:16 | Outpatient (BNVA) | payer OTHER, SELFPAY | PROVIDERS: PCP Clinical Nurse Specialist Adult Health; Referring Provider Clinical Nurse Specialist Adult Health; Visit Provider Nurse Practitioner | DX: Z86.73 Personal history of transient ischemic attack (TIA), and cerebral infarction without residual deficits (principal); Z87.891 Personal history of nicotine dependence | CPT/HCPCS: 99203; 99204 ==

== ENCOUNTER 2021-05-12 21:24 | Emergency (ER) | payer OTHER, SELFPAY ==
[2021-05-12 21:33] VITALS: BP 137/93; PULSE 85; RESP 18; TEMP 36.6; O2SAT 95; BMI 30.7
--- NOTE | 2021-05-12 21:45 | XRR_ITS ---
PROCEDURE INFORMATION: Exam: XR Chest Exam date and time: 05/12/2021 9:45 PM Age: 60 years old Clinical indication: Shortness of breath; Additional info: SOB TECHNIQUE: Imaging protocol: XR of the chest. Views: 1 view. COMPARISON: CR Chest 1 [place] [id number] 08/25/2019 6:35 AM FINDINGS: Lungs: Hyperinflated lungs. No consolidation. Pleural spaces: Unremarkable. No pleural effusion. No pneumothorax. Heart/Mediastinum: Mild cardiomegaly. Bones/joints: Visualized osseous structures are intact. 6 mm ossification adjacent to the greater tuberosity of the proximal right humerus could relate to sequela of calcific tendinitis or bursitis. XR/XR chest 1V portable [id number] IMPRESSION: Stable exam with hyperinflated lungs and mild cardiomegaly. No focal consolidation.
--- NOTE | 2021-05-12 22:16 | W.ED.SOB ---
HPI - SOB/Dyspnea General: Chief Complaint: Shortness of Breath/Dyspnea Stated Complaint: SOB Time Seen by Provider: 05/12/21 21:32 Source: patient Mode of arrival: ambulatory Limitations: no limitations History of Present Illness: HPI Narrative: 80-year-old female has a history of congestive heart failure states history of an sudden onset of shortness of breath 2 hours ago. She states she is concerned she also has some swelling in her right leg has had a history of DVT in the past and a stroke. She states she has a sharp pain in the center of her chest she rates a 4 out of 10. She currently in no distress not requiring any oxygen. She has had no vomiting diarrhea. Denies any worsening improving factors. Associated symptoms: Reports chest pain; Deny abdominal pain, fever(s), nausea or vomiting Review of Systems Const: Denies: fever(s), chills, body aches or change in appetite Eyes: Denies: blurry vision or eye discomfort ENMT: Denies: throat pain or dental pain Card: Reports: chest pain Resp: Reports: dyspnea GI: Denies: abdominal pain, nausea, vomiting or diarrhea : Denies: dysuria Musc: Denies: neck pain or back pain Skin/Breast: Denies: rash Neuro: Denies: headache(s) Psych: Denies: depression Toi/Lymph: Denies: easy bruising All/Imm: Denies: urticaria PFSH ED PFSH: Medical History ASHD (arteriosclerotic heart disease) Congestive heart failure COPD (chronic obstructive pulmonary disease) Dyslipidemia Epistaxis HTN (hypertension) Ischemic cardiomyopathy Palpitations Surgical History S/P angioplasty with stent Family History Father CAD (coronary artery disease) Hypertension CHF (congestive heart failure) S/P CABG (coronary artery bypass graft) Mother Cancer BREAST CA Social History Smoking and tobacco status: former smoker Quit status (tobacco): has quit using tobacco Year quit tobacco: 2020 Former quit date comment: 2ppd x 55 years Alcohol intake: never Marital status: Single Current occupational status: employed Physical Exam Const: COMMON NORMALS: no acute distress, patient oriented x3 and healthy appearing HENMT: COMMON NORMALS: normocephalic and atraumatic HEAD & SCALP: normocephalic and atraumatic Eye: COMMON NORMALS: Equal, round and reactive pupils present and EOMs intact bilaterally PUPIL: Yes Equal, round and reactive pupils present Neck/C-Spine: COMMON NORMALS: full ROM and supple Chest: COMMONS NORMALS: normal inspection of the chest and normal palpation of entire chest wall Resp: COMMON NORMALS: normal respiratory effort, No retractions, No use of accessory muscles and clear to auscultation bilaterally AUSCULTATION: clear to auscultation bilaterally Cardio: COMMON NORMALS: regular rate, regular rhythm and No murmurs present (Cardio) RATE: regular rate RHYTHM: regular rhythm GI: COMMON NORMALS: Normal to inspection, nondistended, normoactive bowel sounds present, Soft to palpation, non-tender and no masses PALPATION: Yes Soft to palpation Extremity: COMMON NORMALS: normal to inspection and full ROM Neuro: COMMON NORMALS: patient oriented x3, moves all extremities and no focal motor deficits Psych: COMMON NORMALS: mental status grossly normal, Normal thought process present and cooperative THOUGHT PROCESS: Normal thought process present Skin: COMMON NORMALS: no rashes or lesions noted and no wounds GENERAL SKIN EXAM: no rashes or lesions noted Course Vital Signs: Vital signs: Vital Signs Temperature 98 F 05/12/21 21:33 Pulse Rate 58 L 05/13/21 01:30 Respiratory Rate 20 H 05/13/21 01:30 Blood Pressure 106/87 05/12/21 23:26 Pulse Oximetry 94 05/13/21 01:30 MDM - SOB/Dyspnea MDM Narrative: Medical decision making narrative: Patient presents here with dyspnea likely from her congestive heart failure. CT showed no acute findings she has no signs of pulmonary embolism. Heart enzymes here are negative as well. Patient given IV Lasix and is to follow-up with PCP and return if worsening. She understands agrees to plan. Lab Data: Labs: Lab Results 05/12/21 05/12/21 05/12/21 Range/Units 22:47 22:47 22:47 WBC 13.2 H (4.0-10.0) 10^3/ uL RBC 4.27 (4.1-5.3) 10^6/u L Hgb 13.4 (11.5-15.3) g/dL Hct 40.1 (37.0-47.0) % MCV 93.9 (81-99) fl MCH 31.4 (28.0-34.0) pg MCHC 33.4 (30.0-36.0) g/dL RDW 13.2 (12.1-15.1) % Plt Count 333 (130-400) 10^3/c mm MPV 10.3 (7.4-10.4) fL Neut % (Auto) 75.1 % Lymph % (Auto) 14.5 % Stanton % (Auto) 8.0 % Eos % (Auto) 1.4 % Baso % (Auto) 0.5 % Neut # (Auto) 9.93 H (1.8-7.7) 10^3/u L Lymph # (Auto) 1.9 (0.8-4.8) 10^3/u L Stanton # (Auto) 1.1 H (0.2-0.9) 10^3/u L Eos # (Auto) 0.2 (0.0-0.8) 10^3/u L Baso # (Auto) 0.1 (0.0-0.1) 10^3/u L Nucleated RBC % (a uto) 0.2 % Nucleated RBCs # 0.0 /100WBC PT Cancelled INR Cancelled D-Dimer Cancelled Sodium Cancelled Potassium Cancelled Chloride Cancelled Carbon Dioxide Cancelled Anion Gap Cancelled BUN Cancelled Creatinine Cancelled GFR Calculation Cancelled Glucose Cancelled Calculated Osmolal ity Cancelled Calcium Cancelled Total Bilirubin Cancelled AST Cancelled ALT Cancelled Alkaline Phosphata se Cancelled Troponin T Baselin e (0-10) ng/L Troponin T 120 Min aaron (0-10) ng/L Delta Troponin T (0-10) ABS# NT-Pro-B Natriuret Pep Cancelled Total Protein Cancelled Albumin Cancelled Globulin Cancelled 05/12/21 05/12/21 05/12/21 Range/Units 22:47 23:15 23:15 WBC (4.0-10.0) 10^3/ uL RBC (4.1-5.3) 10^6/u L Hgb (11.5-15.3) g/dL Hct (37.0-47.0) % MCV (81-99) fl MCH (28.0-34.0) pg MCHC (30.0-36.0) g/dL RDW (12.1-15.1) % Plt Count (130-400) 10^3/c mm MPV (7.4-10.4) fL Neut % (Auto) % Lymph % (Auto) % Stanton % (Auto) % Eos % (Auto) % Baso % (Auto) % Neut # (Auto) (1.8-7.7) 10^3/u L Lymph # (Auto) (0.8-4.8) 10^3/u L Stanton # (Auto) (0.2-0.9) 10^3/u L Eos # (Auto) (0.0-0.8) 10^3/u L Baso # (Auto) (0.0-0.1) 10^3/u L Nucleated RBC % (a uto) % Nucleated RBCs # /100WBC PT 18.70 H INR 1.52 H D-Dimer Sodium 137 Potassium 3.9 Chloride 102 Carbon Dioxide 21 L Anion Gap 17.9 BUN 15 Creatinine 0.7 GFR Calculation 84.8 L Glucose 130 H Calculated Osmolal ity 287 Calcium 9.0 Total Bilirubin 0.6 AST 20 ALT 21 Alkaline Phosphata se 90 Troponin T Baselin e 12 H (0-10) ng/L Troponin T 120 Min aaron (0-10) ng/L Delta Troponin T (0-10) ABS# NT-Pro-B Natriuret Pep 2189 H Total Protein 7.2 Albumin 3.4 L Globulin 3.8 05/13/21 Range/Units 00:28 WBC (4.0-10.0) 10^3/ uL RBC (4.1-5.3) 10^6/u L Hgb (11.5-15.3) g/dL Hct (37.0-47.0) % MCV (81-99) fl MCH (28.0-34.0) pg MCHC (30.0-36.0) g/dL RDW (12.1-15.1) % Plt Count (130-400) 10^3/c mm MPV (7.4-10.4) fL Neut % (Auto) % Lymph % (Auto) % Stanton % (Auto) % Eos % (Auto) % Baso % (Auto) % Neut # (Auto) (1.8-7.7) 10^3/u L Lymph # (Auto) (0.8-4.8) 10^3/u L Stanton # (Auto) (0.2-0.9) 10^3/u L Eos # (Auto) (0.0-0.8) 10^3/u L Baso # (Auto) (0.0-0.1) 10^3/u L Nucleated RBC % (a uto) % Nucleated RBCs # /100WBC PT INR D-Dimer Sodium Potassium Chloride Carbon Dioxide Anion Gap BUN Creatinine GFR Calculation Glucose Calculated Osmolal ity Calcium Total Bilirubin AST ALT Alkaline Phosphata se Troponin T Baselin e (0-10) ng/L Troponin T 120 Min aaron 11.50 H (0-10) ng/L Delta Troponin T -0.50 L (0-10) ABS# NT-Pro-B Natriuret Pep Total Protein Albumin Globulin Imaging Data^: CXR: Attestation: I personally reviewed and interpreted this imaging study as follows: Radiologist's impression: [address] [address] XRay Report Signed Patient: Darlene Michael Unit #: [id number] : 1960 Age/Sex: 60 / F ADM Date: 05/12/21 Loc: ER Room/Bed: Attending Dr: Ordering Provider/Ordering MD: Jeimy Wilson MD Date of Service: 05/12/21 Procedure(s): XR chest 1V portable [id number] Accession Number(s): [id number] Report Number: [id number] PROCEDURE INFORMATION: Exam: XR Chest Exam date and time: 05/12/2021 9:45 PM Age: 60 years old Clinical indication: Shortness of breath; Additional info: SOB TECHNIQUE: Imaging protocol: XR of the chest. Views: 1 view. COMPARISON: CR Chest 1 [place] [id number] 08/25/2019 6:35 AM FINDINGS: Lungs: Hyperinflated lungs. No consolidation. Pleural spaces: Unremarkable. No pleural effusion. No pneumothorax. Heart/Mediastinum: Mild cardiomegaly. Bones/joints: Visualized osseous structures are intact. 6 mm ossification adjacent to the greater tuberosity of the proximal right humerus could relate to sequela of calcific tendinitis or bursitis. XR/XR chest 1V portable [id number] IMPRESSION: Stable exam with hyperinflated lungs and mild cardiomegaly. No focal consolidation. Dictated By: Jose Apple DO Signed By: Jose Apple DO Signed Date/Time: 05/12/212242 DD/ 41 CT Chest: Attestation: I personally reviewed and interpreted this imaging study as follows: Radiologist's impression: [employer] [address] [address] Scan Report Signed Patient: Darlene Michael Unit #: [id number] : 1960 Age/Sex: 60 / F ADM Date: 05/12/21 Loc: ER Room/Bed: Attending Dr: Ordering Provider/Ordering MD: Jeimy Wilson MD Date of Service: 05/13/21 Procedure(s): CT angio chest PE protcl [id number] Accession Number(s): [id number] Report Number: [id number] PROCEDURE INFORMATION: Exam: CTA Chest With Contrast Exam date and time: 05/13/2021 12:06 AM Age: 60 years old Clinical indication: Dyspnea; Prior surgery; Surgery date: 6+ months; Surgery type: Stents; Additional info: SOB TECHNIQUE: Imaging protocol: Computed tomographic angiography of the chest with contrast. 3D rendering (Not supervised by radiologist): MIP and/or 3D reconstructed images were created by the technologist. Radiation optimization: All CT scans at this facility use at least one of these dose optimization techniques: automated exposure control; mA and/or kV adjustment per patient size (includes targeted exams where dose is matched to clinical indication); or iterative reconstruction. Contrast material: OMNI 350; Contrast volume: 95 ml; Contrast route: INTRAVENOUS (IV); COMPARISON: CTA Chest-Pulmonary Emb [id number] 08/13/2019 4:10 AM RADIATION DOSE METRICS: Total DLP (mGy-cm): 617.12 FINDINGS: Pulmonary arteries: Normal. No pulmonary emboli. Aorta: Unremarkable. No aortic aneurysm. No aortic dissection. Great vessels off aortic arch: Calcification of the thoracic aorta and/or great vessels consistent with atherosclerotic vessel disease. Lungs: Moderate centrilobular emphysema. Mild groundglass opacities and/or interstitial opacities consistent with mild allergic pneumonitis, infectious pneumonitis, atypical pulmonary edema and/or volume overload. Pleural spaces: Mild bilateral pleural fluid collections. Heart: Severe calcified coronary artery disease. Lymph nodes: Calcified left hilar nodes and/or mediastinal nodes and/or lung granulomas consistent with old granulomatous disease. Mild mediastinal adenopathy which may be reactive. Bones/joints: Mild thoracic spondylosis. Soft tissues: Stable 1.5 cm lobulated nodule upper outer quadrant right breast, 10 o'clock position, 9.6 cm from the nipple, with 2 small calcifications or biopsy markers. Correlation with most recent breast imaging and or previous biopsies may be helpful. CT/CT angio chest PE protcl [id number] IMPRESSION: 1. Severe calcified coronary artery disease. 2. Mild mediastinal adenopathy which may be reactive. 3. Stable 1.5 cm lobulated nodule upper outer quadrant right breast, 10 o'clock position, 9.6 cm from the nipple, with 2 small calcifications or biopsy markers. Correlation with most recent breast imaging and/or previous biopsies may be helpful. 4. Mild bilateral pleural fluid collections. 5. Moderate centrilobular emphysema. 6. Mild groundglass opacities and/or interstitial opacities consistent with mild allergic pneumonitis, infectious pneumonitis, atypical pulmonary edema and/or volume overload. Radiation Dose CTDIVOL = (mGy): DLP = 617.12 (mGy-cm) Dictated By: Richar Banuelos MD Signed By: Richar Banuelos MD Signed Date/Time: 05/13/21148 DD/ 6 EKG Data^: EKG 1: Attestation: I personally reviewed and interpreted this EKG as follows: EKG Interpretation Date: 05/12/21 EKG interpretation time: 23:20 Interpretation: afib hr [address] or t wave abnormalities qrs 82 qtc 423 Discharge Plan Discharge Patient Disposition: Home Clinical Impression: Shortness of breath, Chest pain Condition: Stable Prescriptions: No Action nitroglycerin [Nitrostat] 0.4 mg tablet, sublingual 0.4 mg SUBLINGUAL Q5M PRN (Reason: Chest Pain) RF: 0 potassium chloride [Klor-Con 10] 10 mEq tablet extended release 10 meq PO DAILY@0700 RF: 0 diltiazem HCl 180 mg capsule,extended release 24 hr 180 mg PO DAILY Qty: 30 RF: 3 Spiriva Respimat 2.5 mcg/actuation mist 2 puff inhalation DAILY Qty: 4 RF: 3 acetaminophen 325 mg capsule 325 mg PO QID PRNRF: 0 Eliquis 5 mg tablet 5 mg PO BID RF: 0 atorvastatin 80 mg tablet 80 mg PO DAILY RF: 0 famotidine 20 mg tablet 20 mg PO DAILY RF: 0 furosemide 20 mg tablet 40 mg PO DAILY@0700 RF: 0 metoprolol succinate 100 mg tablet extended release 24 hr 50 mg PO BID RF: 0 nicotine 7 mg/24 hr patch 24 hour 1 patch transdermal Q24H RF: 0 Atrovent HFA 17 mcg/actuation HFA aerosol inhaler 1 puff inhalation QID RF: 0 guaifenesin [Mucinex] 600 mg tablet extended release 12hr 600 mg PO BID RF: 0 clopidogrel 75 mg tablet 75 mg PO DAILY@0700 RF: 0 lisinopril 2.5 mg tablet 2.5 mg PO DAILY@0700 RF: 0 Hold Instructions: Doctor's Order Discharge Orders: Discharge ED (Routine); Ordered 05/13/21 Ordered By: Jeimy Wilson Referrals: Harjit Long [Primary Care Provider] - Discharge Diet: Advance as tolerated Discharge Activity: Resume usual activity Patient Instructions: Dyspnea (ED) Coding Level of Care Code ED Inspector Casing for Chg Fwd Exam Comprehensive
[2021-05-12 22:52] LABS: Basophils # 0.1 10^3/uL (0.0-0.1); Basophils % 0.5 %; Eosinophils # 0.2 10^3/uL (0.0-0.8); Eosinophils % 1.4 %; Hematocrit 40.1 % (37.0-47.0); Hemoglobin 13.4 g/dL (11.5-15.3); Lymphocytes # 1.9 10^3/uL (0.8-4.8); Lymphocytes % 14.5 %; Mean Corpuscular HGB Conc 33.4 g/dL (30.0-36.0); Mean Corpuscular Hemoglobin 31.4 pg (28.0-34.0); Mean Corpuscular Volume 93.9 fl (81-99); Mean Platelet Volume 10.3 fL (7.4-10.4); Monocytes # 1.1 10^3/uL (0.2-0.9); Neutrophils # 9.93 10^3/uL (1.8-7.7); Neutrophils % 75.1 %; Nucleated Red Blood Cells % 0.2 %; Platelet Count 333 10^3/cmm (130-400); Red Blood Count 4.27 10^6/uL (4.1-5.3); Red Cell Distribution Width 13.2 % (12.1-15.1); White Blood Count 13.2 10^3/uL (4.0-10.0)
[2021-05-12 23:12] LABS: Troponin(5th) Baseline 12 ng/L (0-10)
[2021-05-12 23:26] VITALS: BP 106/87; PULSE 75; RESP 25; O2SAT 95
[2021-05-12 23:40] LABS: INR 1.52 (0.8-1.2)
--- NOTE | 2021-05-12 23:45 | ECG_ITS ---
[facility] Test Date: 2021-05-12 Pat Name: Darlene Michael Department: Room: Gender: Female Cissp: : 1960 Requested By: Jeimy Wilson Order Number: [id number] Reading MD: SWETA HOLLINGSWORTH Measurements Intervals [place] Rate: 75 P: FL: QRS: 63 QRSD: 82 T: 31 QT: 394 QTc: 443 Interpretive Statements ATRIAL FIBRILLATION LOW QRS VOLTAGE IN PRECORDIAL LEADS [QRS DEFLECTION < 1.0 mV IN CHEST LEADS] ABNORMAL RHYTHM ECG Compared to ECG 03/03/2021 08:33:31 No significant changes Electronically Signed On 05-13-2021 21:13:08 CDT by SWETA HOLLINGSWORTH [id number]
[2021-05-13] VITALS: PULSE 67; RESP 23; O2SAT 96
[2021-05-13 00:01] LABS: Alanine Aminotransferase 21 U/L (0-33); Albumin Level 3.4 g/dL (3.5-5.2); Alkaline Phosphatase 90 IU/L (35-105); Anion Gap 17.9 (5-19); Aspartate Amino Transferase 20 U/L (0-32); Blood Urea Nitrogen 15 mg/dL (8-23); Carbon Dioxide 21 mmol/L (22-29); Chloride 102 mmol/L (98-107); Globulin 3.8 g/dL (1.3-4.6); Glomerular Filtration Rate 84.8 mL/min (90-130); Glucose 130 mg/dL (65-115); NT Pro B Type Natriuretic Pept 2189 pg/mL (0-125); Osmolality Calculated 287 mOsm/kg (285-295); Potassium 3.9 mmol/L (3.5-5.1); Sodium 137 mmol/L (136-145); Total Bilirubin 0.6 mg/dL (0.15-1.2); Total Protein 7.2 g/dL (6.6-8.7)
--- NOTE | 2021-05-13 00:06 | CTR_ITS ---
PROCEDURE INFORMATION: Exam: CTA Chest With Contrast Exam date and time: 05/13/2021 12:06 AM Age: 60 years old Clinical indication: Dyspnea; Prior surgery; Surgery date: 6+ months; Surgery type: Stents; Additional info: SOB TECHNIQUE: Imaging protocol: Computed tomographic angiography of the chest with contrast. 3D rendering (Not supervised by radiologist): MIP and/or 3D reconstructed images were created by the technologist. Radiation optimization: All CT scans at this facility use at least one of these dose optimization techniques: automated exposure control; mA and/or kV adjustment per patient size (includes targeted exams where dose is matched to clinical indication); or iterative reconstruction. Contrast material: OMNI 350; Contrast volume: 95 ml; Contrast route: INTRAVENOUS (IV); COMPARISON: CTA Chest-Pulmonary Emb [id number] 08/13/2019 4:10 AM RADIATION DOSE METRICS: Total DLP (mGy-cm): 617.12 FINDINGS: Pulmonary arteries: Normal. No pulmonary emboli. Aorta: Unremarkable. No aortic aneurysm. No aortic dissection. Great vessels off aortic arch: Calcification of the thoracic aorta and/or great vessels consistent with atherosclerotic vessel disease. Lungs: Moderate centrilobular emphysema. Mild groundglass opacities and/or interstitial opacities consistent with mild allergic pneumonitis, infectious pneumonitis, atypical pulmonary edema and/or volume overload. Pleural spaces: Mild bilateral pleural fluid collections. Heart: Severe calcified coronary artery disease. Lymph nodes: Calcified left hilar nodes and/or mediastinal nodes and/or lung granulomas consistent with old granulomatous disease. Mild mediastinal adenopathy which may be reactive. Bones/joints: Mild thoracic spondylosis. Soft tissues: Stable 1.5 cm lobulated nodule upper outer quadrant right breast, 10 o'clock position, 9.6 cm from the nipple, with 2 small calcifications or biopsy markers. Correlation with most recent breast imaging and or previous biopsies may be helpful. CT/CT angio chest PE protcl [id number] IMPRESSION: 1. Severe calcified coronary artery disease. 2. Mild mediastinal adenopathy which may be reactive. 3. Stable 1.5 cm lobulated nodule upper outer quadrant right breast, 10 o'clock position, 9.6 cm from the nipple, with 2 small calcifications or biopsy markers. Correlation with most recent breast imaging and/or previous biopsies may be helpful. 4. Mild bilateral pleural fluid collections. 5. Moderate centrilobular emphysema. 6. Mild groundglass opacities and/or interstitial opacities consistent with mild allergic pneumonitis, infectious pneumonitis, atypical pulmonary edema and/or volume overload. Radiation Dose CTDIVOL = (mGy): DLP = 617.12 (mGy-cm)
[2021-05-13 01:00] VITALS: PULSE 61; RESP 19; O2SAT 94
[2021-05-13] MEDS: iohexol 350 mg/mL 100 mL Btl IV (01:12)
[2021-05-13 01:30] VITALS: PULSE 58; RESP 20; O2SAT 94
[2021-05-13] MEDS: FUROsemide 10 mg/mL SDV 4mL 40 MG IVP (02:34)
[2021-05-13 02:46] VITALS: BP 132/68; PULSE 67; RESP 20; O2SAT 96
--- NOTE | 2021-05-13 22:11 | USR_ITS ---
PROCEDURE INFORMATION: Exam: US Duplex Right Lower Extremity Veins, Limited Exam date and time: 05/13/2021 10:11 PM Age: 60 years old Clinical indication: Pain; Leg, lower; Right TECHNIQUE: Imaging protocol: Real-time Duplex ultrasound of the Right Lower Extremity with 2-D mauricio scale, color Doppler flow and spectral waveform analysis with image documentation. Limited exam was focused on the right lower extremity veins. COMPARISON: No relevant prior studies available. FINDINGS: Evaluated veins include the right common femoral, proximal profunda femoral, proximal/mid/distal superficial femoral, popliteal, posterior tibial, peroneal, and proximal greater saphenous veins. No visible clot in the included veins. The included veins appear normally compressible. Duplex Doppler evaluation demonstrates flow in the evaluated veins. US/[place] [id number] IMPRESSION: No evidence of acute right lower extremity DVT.
== END 2021-05-13 02:44 | disposition home or self-care (01) ==
PROVIDERS: Emergency Provider Emergency Medicine; PCP Clinical Nurse Specialist Adult Health
DX: R06.02 Shortness of breath (principal); R07.9 Chest pain, unspecified; I11.0 Hypertensive heart disease with heart failure; I50.9 Heart failure, unspecified; I25.10 Atherosclerotic heart disease of native coronary artery without angina pectoris; J44.9 Chronic obstructive pulmonary disease, unspecified; Z87.891 Personal history of nicotine dependence; Z82.49 Family history of ischemic heart disease and other diseases of the circulatory system
CPT/HCPCS: 71045; 71275; 80053; 83880; 84484; 85025; 85610; 93005; 93971; 96374; 96375; 99284; J1940; Q9967

== ENCOUNTER 2021-05-14 06:00 | Outpatient (RCR) | payer OTHER, MEDICAID, SELFPAY | END 2021-06-12 23:59 | disposition home or self-care (01) | LOC: SR3 06:00 | PROVIDERS: PCP Clinical Nurse Specialist Adult Health; Referring Provider Physical Medicine & Rehabilitation; Visit Provider Physical Medicine & Rehabilitation | DX: I63.511 Cerebral infarction due to unspecified occlusion or stenosis of right middle cerebral artery (principal) | CPT/HCPCS: 97110; 97116 ==

== ENCOUNTER 2021-05-26 14:30 | Outpatient (CLI) | payer OTHER, MEDICAID, SELFPAY ==
--- NOTE | 2021-05-26 14:15 | USCV_ITS ---
Darlene Michael Age: 60 Gender: F : 1960 Exam Date: 05/26/2021 14:51 Ordering Phys: Kingsley Nicolas MD ([email or web address]) Technologist: Alison Klein [place] [facility] [place]: PERIPHERAL VASCULAR DISEASE Risk Factors: Previous Vascular Surgery: RIGHT LEFT BP: 125.0 / 77.00 BP: 127.0/ 81.00 0 0 Waveform Velocity (cm/s) Velocity (cm/s) Waveform Triphasic 122.3 Iliac Prox Triphasic 192.5 Iliac Mid Triphasic 196.1 Iliac Distal Triphasic 166.2 ARMOR [employer]ISS[employer]LE CREWMAN Triphasic 120.2 SFA Prox Biphasic 98.1 SFA Mid Biphasic 111.4 SFA Dist Monophasic 76.1 POP Monophasic 82.3 FRONT SIGHT ATTACHER Monophasic 58.0 DPA 1.1 GILBERT FINDINGS RT FRONT SIGHT ATTACHER 142 RT DPA 146 Mild diffuse plaques in the iliac and femoral artery on the right side Normal resting GILBERT 1.1 on the right side CONCLUSIONS No significant arterial obstruction, based on the above findings Mild diffuse plaque in the iliac and femoral artery on the right side Dr Karena Clark MD [facility] (Electronically Signed) Final Date: 28 May 2021 07:30 S
== END 2021-05-26 14:31 | disposition home or self-care (01) ==
LOC: RAD 14:34
PROVIDERS: PCP Clinical Nurse Specialist Adult Health; Visit Provider Internal Medicine Cardiovascular Disease
DX: I73.9 Peripheral vascular disease, unspecified (principal)
CPT/HCPCS: 93926

== ENCOUNTER 2021-06-13 06:00 | Outpatient (RCR) | payer OTHER, SELFPAY | END 2021-07-13 23:59 | disposition home or self-care (01) | LOC: SR3 06:00 | PROVIDERS: PCP Clinical Nurse Specialist Adult Health; Referring Provider Physical Medicine & Rehabilitation; Visit Provider Physical Medicine & Rehabilitation | DX: I63.511 Cerebral infarction due to unspecified occlusion or stenosis of right middle cerebral artery (principal) | CPT/HCPCS: 97110 ==

== ENCOUNTER → 2021-06-30 14:22 | Outpatient (BNVA) | payer OTHER, MEDICAID, SELFPAY | PROVIDERS: PCP Clinical Nurse Specialist Adult Health; Visit Provider Internal Medicine Cardiovascular Disease | DX: I25.10 Atherosclerotic heart disease of native coronary artery without angina pectoris (principal); I25.5 Ischemic cardiomyopathy; I48.91 Unspecified atrial fibrillation; I50.22 Chronic systolic (congestive) heart failure | CPT/HCPCS: 80053; 83880; 85025 ==

== ENCOUNTER 2021-07-08 14:26 | Outpatient (CLI) | payer OTHER, MEDICAID, SELFPAY ==
--- NOTE | 2021-07-08 14:43 | XR_ITS ---
WS: [id number] Exam: XR chest 2V* [id number] Date/Time of Exam: 07/08/2021 2:44 PM Reason For Exam: J90 - Pleural effusion, not elsewhere classified Comparison 05/12/2021. The lungs are fully expanded and clear. Signs of previous coronary artery stenting. Heart size is top limits normal. Pulmonary vascularity is not increased. No pleural effusions. The mediastinum and oss eous thorax are unremarkable. XR/XR chest 2V* [id number] IMPRESSION: 1. No acute cardiopulmonary finding.
== END 2021-07-08 14:27 | disposition home or self-care (01) ==
LOC: RAD 14:33
PROVIDERS: PCP Clinical Nurse Specialist Adult Health; Visit Provider Internal Medicine Cardiovascular Disease
DX: J90 Pleural effusion, not elsewhere classified (principal)
CPT/HCPCS: 71046

== ENCOUNTER 2021-09-17 12:58 | Outpatient (CLI) | payer MEDICAID, SELFPAY ==
--- NOTE | 2021-09-17 13:30 | USCV_ITS ---
Darlene Michael Age: 61 Gender: F : 1960 Exam Date: 09/17/2021 13:17 Ordering Phys: Kingsley Nicolas MD ([email or web address]) Technologist: AUGUSTUS [place] [facility] [place]ication: SOB, hx cardiac stent 2018 BP: / HR: 78 Rhythm: Sinus Technical Quality: Adequate MEASUREMENTS (Male / Female) Normal Values 2D ECHO LV Diastolic Diameter PLAX 4.3 cm 4.2 - 5.9 / 3.9 - 5.3 cm LV Systolic Diameter PLAX 2.6 cm IVS Diastolic Thickness 1.2 cm 0.6 - 1.0 / 0.6 - 0.9 cm IVS Systolic Thickness 1.7 cm LVPW Diastolic Thickness 1.1 cm 0.6 - 1.0 / 0.6 - 0.9 cm LVPW Systolic Thickness 1.4 cm LVOT Diameter 2.0 cm LV Ejection Fraction 2D Teich 70.5 % LV Ejection Fraction MOD 2C 46.0 % LV Ejection Fraction 2C AL 46.3 % LA Diameter 3.9 cm LA Width 4.0 cm LA Height 5.1 cm RA Width 4.2 cm RA Height 4.6 cm Aorta at Sinotubular Diameter 2.2 cm M-MODE Aortic Annulus Diameter 2.4 cm LA Ao Ratio MM 1.7 MV E Point Septal Separation 0.5 cm DOPPLER AV Peak Velocity 107.0 cm/s LVOT Peak Velocity 78.0 cm/s AV Area Cont Eq vti 2.2 cm squared AV Area Cont Eq pk 2.3 cm squared MV Peak Velocity 135.0 cm/s MV Area PHT 4.6 cm squared Mitral E to A Ratio 1.5 MV E' Velocity 62.0 cm/s Mitral E to MV E' Ratio 18.8 Mitral E to LV E' Lateral Ratio 16.2 Mitral E to LV E' Septal Ratio 22.8 TR Peak Velocity 345.8 cm/s TR Peak Gradient 47.8 mmHg TV Peak E Velocity 33.0 cm/s Right Atrial Pressure 5.0 mmHg Pulmonary Artery Systolic Pressu 52.8 mmHg PV Peak Velocity 77.0 cm/s RV Acceleration Time 0.1 s RV Ejection Time 0.4 s RV AcT/ET 0.3 FINDINGS Left Ventricle Normal left ventricular size, systolic function and upper normal wall thickness, with no regional wall motion abnormalities. Left ventricular ejection fraction is estimated at 55 %. Grade II diastolic dysfunction, moderately elevated filling pressures. Right Ventricle Normal right ventricular size and systolic function. Right ventricular systolic pressure 58 mmHg. Right Atrium Normal right atrial size. Right atrial pressure estimated at 3 mm Hg. Left Atrium Moderately increased left atrial size. Mitral Valve Mild mitral annular calcification. No mitral valve stenosis. Moderate-severe mitral valve regurgitation Aortic Valve Structurally normal trileaflet aortic valve. No aortic valve stenosis. No aortic valve regurgitation. Tricuspid Valve Structurally normal tricuspid valve. Mild tricuspid valve regurgitation. Pulmonic Valve Structurally normal pulmonic valve. No pulmonary valve stenosis. Trace pulmonary valve regurgitation. Pericardium No pericardial effusion. Aorta Normal size aortic root and proximal ascending aorta. Normal size inferior vena cava with normal respiratory variation. CONCLUSIONS 1. Normal left ventricular size, systolic function and upper normal wall thickness, with no regional wall motion abnormalities. Left ventricular ejection fraction is estimated at 55 %. Grade II diastolic dysfunction, moderately elevated filling pressures. 2. Moderately increased left atrial size. 3. Moderate-severe mitral valve regurgitation. 4. Severe pulmonary hypertension with pulmonary artery pressure estimated at 58 mmHg. 5. When compared to previous echocardiogram dated 02/16/2020, left ventricle systolic function has improved and mitral regurgitation has worsened. Sanaz Yanes MD (Electronically Signed) Final Date: 17 September 2021 18:41 S
== END 2021-09-17 12:59 | disposition home or self-care (01) ==
LOC: RAD 13:03
PROVIDERS: PCP Clinical Nurse Specialist Adult Health; Visit Provider Internal Medicine Cardiovascular Disease
DX: R06.02 Shortness of breath (principal); I05.9 Rheumatic mitral valve disease, unspecified; I27.20 Pulmonary hypertension, unspecified
CPT/HCPCS: 93306

== ENCOUNTER → 2021-11-12 13:33 | Outpatient (BNVA) | payer MEDICAID, SELFPAY | PROVIDERS: PCP Clinical Nurse Specialist Adult Health; Visit Provider Internal Medicine | DX: I25.10 Atherosclerotic heart disease of native coronary artery without angina pectoris (principal); I34.0 Nonrheumatic mitral (valve) insufficiency; Z01.812 Encounter for preprocedural laboratory examination; Z87.891 Personal history of nicotine dependence; I25.5 Ischemic cardiomyopathy; I50.22 Chronic systolic (congestive) heart failure; I48.91 Unspecified atrial fibrillation; I73.9 Peripheral vascular disease, unspecified | CPT/HCPCS: 99214 ==

== ENCOUNTER 2021-11-19 11:28 | Outpatient (CLI) | payer MEDICAID, SELFPAY ==
--- NOTE | 2021-11-19 12:36 | XR_ITS ---
WS: [id number] Left knee, 3 views, 11/19/2021 Clinical Data: L KNEE JOINT PAIN Comparison: None. Findings: No fractures or dislocations are seen. The joint spaces are normal. The patella is intact. The soft t issues are unremarkable. There is a small anterior superior spur of the patella. XR/XR knee LT 3V* [id number] Impression: Negative left knee. Kellgren-Vasu Classification: grade 0 (none): definite absence of x-ray karen nges of osteoarthritis
== END 2021-11-19 11:29 | disposition home or self-care (01) ==
LOC: RAD 11:30
PROVIDERS: PCP Clinical Nurse Specialist Adult Health; Visit Provider Clinical Nurse Specialist Adult Health
DX: M25.562 Pain in left knee (principal)
CPT/HCPCS: 73562

== ENCOUNTER 2021-12-18 13:22 | Outpatient (CLI) | payer MEDICAID, SELFPAY ==
--- NOTE | 2021-12-18 13:35 | CT_ITS ---
WS: [id number] CT HEAD NONCONTRAST HISTORY: HX OF STROKE ON ELIQUIS/RECENT FALL TECHNIQUE: Contiguous axial imaging performed through the brain in 2.5 mm imaging. Bone and soft tiss ue windows. Sagittal and coronal reformats reviewed. All CT scans at [facility] use at least one of these dose optimization techniques: automated exposure control; mA and/or kV adjustment per pa tient size (includes targeted exams where dose is matched to clinical indication); or iterative recon struction. DLP: 1019.43 mGy.cm COMPARISON: 03/03/2021 No acute intracranial hemorrhage, midline shift or mass effect. Focal area of encephalomalacia involving the posterior RIGHT frontoparietal region. There is loss of the mauricio-white matter differentiation. Mild ex vacuole dilatation of the lateral ventricle. Coarse t he posterior low-attenuation the cortex remains intact. Ventricles: Very minimal extra-axial dilatation of the RIGHT lateral ventricle adjacent to the encep halomalacia. No inferior displacement of cerebellar tonsils. Paranasal sinuses: As visualized are clear. Mastoid air cells: Well pneumatized. Calvarium and scalp: Skull is intact with no soft tissue edema or swelling. CT/CT head wo con* [id number] IMPRESSION: 1. No acute intracranial hemorrhage or edema. 2. Large area of encephalomalacia involving the posterior RIGHT frontal and pa rietal regions. Probably all due to prior infarct. The posterior infarct mainta ins a cortical rim. Suggest follow-up MRI brain with contrast to exclude an adj acent neoplasm or mass. 3. No hydrocephalus.
== END 2021-12-18 13:23 | disposition home or self-care (01) ==
LOC: RAD 13:23
PROVIDERS: PCP Clinical Nurse Specialist Adult Health; Visit Provider Clinical Nurse Specialist Adult Health
DX: R26.89 Other abnormalities of gait and mobility (principal); G93.89 Other specified disorders of brain
CPT/HCPCS: 70450

== ENCOUNTER → 2021-12-22 10:55 | Outpatient (BNVA) | payer MEDICAID, SELFPAY | PROVIDERS: PCP Clinical Nurse Specialist Adult Health; Referring Provider Internal Medicine; Visit Provider Internal Medicine | DX: Z20.822 Contact with and (suspected) exposure to COVID-19 (principal) | CPT/HCPCS: 99999 ==

== ENCOUNTER 2021-12-22 22:41 | Emergency (ER) | payer MEDICAID, SELFPAY ==
--- NOTE | 2021-12-22 22:45 | ED_ITS ---
HPI - Chest Pain General: Chief Complaint: Extremity Problem,Nontraumatic Stated Complaint: LEFT LEG SWELLING Time Seen by Provider: 12/22/21 22:45 History of Present Illness: Ms. Michael is a 61-year-old lady with complex past medical history including hypertension, hyperlipidemia, CHF, ischemic cardiomyopathy, valvular heart disease, history of left lower extremity critical limb ischemia, history of stroke, COPD who presents the emergency department due to 2 concerns. Approximately 3 weeks ago she noticed left lower extremity weakness which was progressive in onset and now severe in intensity. She is essentially unable to move her leg without physically moving it with her arms. She does note mild sensory changes however has not noticed color or temperature changes. She denies acute injury. Additionally she has had left sided sharp chest pain with radiation to the left chest. This is associated with minimal shortness of breath though no other typical cardiac features. At times she notices irregularity of her heartbeat. She endorses rare history of similar. She has been compliant with her medication regimen including anticoagulation. No other specific changes in health, exacerbating, or alleviating factors identified. Onset (ago): week(s) Timing of current episode: constant Onset: during rest Severity: moderate Quality: sharp Review of Systems General: Reports: 10 or more systems reviewed and unremarkable except in HPI and below PFSH ED PFSH: Medical History ASHD (arteriosclerotic heart disease) Basilar artery thrombosis Congestive heart failure COPD (chronic obstructive pulmonary disease) CVA (cerebral vascular accident) Dyslipidemia HTN (hypertension) Ischemic cardiomyopathy Palpitations Surgical History History of brain surgery History of coronary artery stent placement S/P angioplasty with stent S/P section Status post colonoscopy Family History Father CAD (coronary artery disease) Hypertension CHF (congestive heart failure) S/P CABG (coronary artery bypass graft) Mother Cancer BREAST CA Social History Smoking and tobacco status: former smoker Quit status (tobacco): has quit using tobacco Year quit tobacco: 2020 Former quit date comment: 2ppd x 55 years Alcohol intake: never Marital status: Single Current occupational status: employed Physical Exam Const: COMMON NORMALS: patient oriented x3 and alert GENERAL APPEARANCE: cooperative and well developed HENMT: COMMON NORMALS: normocephalic and atraumatic HEAD & SCALP: normocephalic and atraumatic Eye: COMMON NORMALS: conjunctivae normal CONJUNCTIVA: Yes conjunctivae normal SCLERA: sclerae normal Neck/C-Spine: COMMON NORMALS: supple GENERAL: Yes trachea midline Resp: COMMON NORMALS: normal respiratory effort EFFORT & INSPECTION: Yes able to speak in complete sentences Cardio: COMMON NORMALS: regular rate and regular rhythm RATE: regular rate RHYTHM: regular rhythm GI: COMMON NORMALS: Soft to palpation PALPATION: Yes Soft to palpation and No Tenderness to palpation present (GI) PERCUSSION: normal to percussion Extremity: GENERAL: Yes normal exam except as noted and No edema Neuro: COMMON NORMALS: patient oriented x3 and CN's II-XII intact bilaterally SENSORIUM/ORIENTATION: Yes alert and No Orientation impaired OTHER: 2/5 strength in left lower extremity, patient reports subjective sensory changes approximately 50% and abnormal compared to contralateral side. Apparently new over the past few weeks. No other focal neurologic deficits appreciated. Psych: COMMON NORMALS: mental status grossly normal and Normal thought process present THOUGHT PROCESS: Normal thought process present Course ED course: - Patient was seen and evaluated by me at bedside - Patient placed on cardiac monitors, IV access obtained - Initial evaluation notable for exam as above - Labs and xrays personally interpreted by me. EKG from 2251 personally interp reted by me. Atrial fibrillation, no STEMI. -Aspirin given - Labs notable for unremarkable hematologic panel. Metabolic panel with perhaps mild evidence of dehydration. Delta troponin negative. BNP similar to prior. - Imaging notable for unchanged head CT. Chest x-ray without lobar consolidatio n or pneumothorax. DVT study without evidence of DVT. - Patient has dopplerable pulses and warmth is symmetric bilateral feet. - Upon serial reexamination after treatment the patient was similar - Based on patient history, evaluation, and testing as interpreted the most likely cause of the patient's condition is left lower extremity weakness/pain of uncertain etiology chest pain. - Challenging situation, the patient is on stroke prophylactic therapy including apixaban and Plavix, additionally she is on a high-dose statin. Symptoms are weeks old and there is no evidence of acute cause on CT. The patient denies back pain, no loss of bowel or bladder control, no saddle anesthesia. - Given the patient's high complexity regarding valvular heart disease and likely evidence of pulmonary hypertension as well as patient's clinical history were considered and I do not feel that patient requires inpatient admission for further cardiac testing. - The results of ED evaluation were discussed with the patient including prescriptions and/or symptomatic cares (if applicable) including appropriate and responsible use, followup plan, and return precautions. The patient verbalized understanding and felt safe for discharge. - Patient discharged in satisfactory condition. Note: Click bubbles or prepopulated schreiber in note writing are used for assistance with data collection and billing and are inherently more limited than narrative and other text portions of this note. Please use narrative for additional clinical history and defer to narrative/free test for any case of contradictory information. If information appears in only free text or click bubble it should be considered present or absent as reported. Please contact note creative writer for clarifications of clinical information or contradictory information. MDM is a brief summary, contradictory or erroneous seeming information should be clarified and full note should be reviewed. Vital Signs: Vital signs: Vital Signs Temperature 97.8 F 12/22/21 22:55 Pulse Rate 84 12/23/21 03:05 Respiratory Rate 16 12/23/21 03:05 Blood Pressure 127/65 12/23/21 00:01 Pulse Oximetry 96 12/23/21 03:05 MDM - Chest Pain Medical Decision Making 61-year-old lady with complex past medical history including stroke after intervention for acute limb ischemia who presents to the emergency department due to chest discomfort and left lower extremity pain/weakness. ED evaluation without obvious cause for symptoms. Delta troponin negative. Satisfactory for continued outpatient management. Medical Records I reviewed the patient's medical records. Lab Data I reviewed the patient's lab results. : 12/23/21 00:00 12/23/21 00:00 Radiology Impressions Chest X-Ray 12/22/21 22:48 IMPRESSION: 1. No definite CHF or pneumonia. 2. Other findings discussed above. Head CT 12/22/21 23:13 IMPRESSION: 1. No acute intracranial hemorrhage or mass effect. 2. Changes of microvascular disease, and old right-sided infarct. 3. No definite acute infarct by CT, see above. 4. Other findings discussed above. Venous Duplex 12/23/21 00:09 IMPRESSION: No evidence of acute left lower extremity DVT. Laboratory Results WBC 7.2 10^3/uL (4.0-10.0) 12/23/21 00:00 RBC 4.39 10^6/uL (4.1-5.3) 12/23/21 00:00 Hgb 13.8 g/dL (11.5-15.3) 12/23/21 00:00 Hct 42.2 % (37.0-47.0) 12/23/21 00:00 MCV 96.1 fl (81-99) 12/23/21 00:00 MCH 31.4 pg (28.0-34.0) 12/23/21 00:00 MCHC 32.7 g/dL (30.0-36.0) 12/23/21 00:00 RDW 14.6 % (12.1-15.1) 12/23/21 00:00 Plt Count 290 10^3/cmm (130-400) 12/23/21 00:00 MPV 10.0 fL (7.4-10.4) 12/23/21 00:00 Neut % (Auto) 58.5 % 12/23/21 00:00 Lymph % (Auto) 23.8 % 12/23/21 00:00 Dauphin % (Auto) 13.7 % 12/23/21 00:00 Eos % (Auto) 2.9 % 12/23/21 00:00 Baso % (Auto) 0.8 % 12/23/21 00:00 Neut # (Auto) 4.24 10^3/uL (1.8-7.7) 12/23/21 00:00 Lymph # (Auto) 1.7 10^3/uL (0.8-4.8) 12/23/21 00:00 Dauphin # (Auto) 1.0 10^3/uL (0.2-0.9) H 12/23/21 00:00 Eos # (Auto) 0.2 10^3/uL (0.0-0.8) 12/23/21 00:00 Baso # (Auto) 0.1 10^3/uL (0.0-0.1) 12/23/21 00:00 Nucleated RBC % (auto) 0 % 12/23/21 00:00 Nucleated RBCs # 0.0 /100WBC 12/23/21 00:00 Sodium 139 mmol/L (136-145) 12/23/21 00:00 Potassium 4.1 mmol/L (3.5-5.1) 12/23/21 00:00 Chloride 104 mmol/L (98-107) 12/23/21 00:00 Carbon Dioxide 20 mmol/L (22-29) L 12/23/21 00:00 Anion Gap 19.1 (5-19) H 12/23/21 00:00 BUN 20 mg/dL (8-23) 12/23/21 00:00 Creatinine 0.9 mg/dL (0.5-0.9) 12/23/21 00:00 GFR Calculation 63.2 mL/min (90-130) L 12/23/21 00:00 Glucose 128 mg/dL (65-115) H 12/23/21 00:00 Calculated Osmolality 292 mOsm/kg (285-295) 12/23/21 00:00 Calcium 9.6 mg/dL (8.5-10.5) 12/23/21 00:00 Total Bilirubin 0.5 mg/dL (0.15-1.2) 12/23/21 00:00 AST 22 U/L (0-32) 12/23/21 00:00 ALT 15 U/L (0-33) 12/23/21 00:00 Alkaline Phosphatase 89 IU/L (35-105) 12/23/21 00:00 Troponin T Baseline 13 ng/L (0-10) H 12/23/21 00:00 Troponin T Hi Sens 6Hr 13.13 ng/L (0-10) H 12/23/21 01:55 Troponin T Hi Sens 6Hr Delta 0.13 ng/L (0-12) 12/23/21 01:55 NT-Pro-B Natriuret Pep 1504 pg/mL (0-125) H 12/23/21 00:00 Total Protein 6.8 g/dL (6.6-8.7) 12/23/21 00:00 Albumin 4.0 g/dL (3.5-5.2) 12/23/21 00:00 Globulin 2.8 g/dL (1.3-4.6) 12/23/21 00:00 Lipase 50 U/L (13-60) 12/23/21 00:00 Discharge Plan Discharge Patient Disposition: Home Clinical Impression: Chest pain, Palpitations, Left leg weakness Condition: Stable Prescriptions: No Action nitroglycerin [Nitrostat] 0.4 mg tablet, sublingual 0.4 mg SUBLINGUAL Q5M PRN (Reason: Chest Pain) 0RF potassium chloride [Klor-Con 10] 10 mEq tablet extended release 30 meq PO DIRECTED Qty: 270 3RF Rx Instructions: Take 20mEq (2 tabs) in AM and 10mEq (1 tab) in PM Spiriva with HandiHaler 18 mcg capsule, w/inhalation device 1 cap inhalation DAILY 0RF Rx Instructions: puncture 1 cap using device; one dose = 2 inhalations Spiriva Respimat 2.5 mcg/actuation mist 2 puff inhalation DAILY Qty: 4 3RF diltiazem HCl 120 mg capsule,extended release 24 hr 120 mg PO DAILY Qty: 30 6RF acetaminophen 325 mg capsule 325 mg PO QID PRN0RF Eliquis 5 mg tablet 5 mg PO BID 0RF atorvastatin 80 mg tablet 80 mg PO DAILY 0RF famotidine 20 mg tablet 20 mg PO DAILY 0RF metoprolol succinate 100 mg tablet extended release 24 hr 50 mg PO BID 0RF Atrovent HFA 17 mcg/actuation HFA aerosol inhaler 1 puff inhalation QID 0RF clopidogrel 75 mg tablet See Rx Instructions .ROUTE .COMPLEX Qty: 90 3RF Dose Instruction: TAKE 1 TABLET BY MOUTH EVERY DAY Rx Instructions: TAKE 1 TABLET BY MOUTH EVERY DAY furosemide 20 mg tablet 60 mg PO DIRECTED Qty: 270 1RF Rx Instructions: Take 40mg (2 tabs) in AM and 20mg (1 tabs) in PM Discharge Orders: Discharge ED (Routine); Ordered 12/23/21 Ordered By: Cm Celis Referrals: Harjit Long [Primary Care Provider] - Discharge Diet: Usual diet Discharge Activity: Resume usual activity Patient Instructions: Chest Pain (ED), Weakness (ED), Opioid Safety Activity Restrictions/Additional Instructions: Thank you for visiting the emergency department. You were seen and evaluated for leg weakness and pain as well as chest pain. The exact cause of your symptoms is unclear as discussed. Please follow-up with your primary care provider, neurology, and cardiology. Please return to the emergency department for worsening symptoms, any new neurologic deficits, or anything else that you are concerned about and feel needs emergency department evaluation. Coding Level of Care Code ED Supervisor [employer] for [employer] Fwd Exam Comprehensive
--- NOTE | 2021-12-22 22:48 | ECG_ITS ---
[facility] Test Date: 2021-12-22 Pat Name: Darlene Michael Department: Room: Gender: Female Certified Maintenance Welder: : 1960 Requested By: Cm Celis Order Number: [id number] Roberta MD: Sanaz Yanes M.D. Measurements Intervals [place] Rate: 81 P: NC: QRS: 37 QRSD: 81 T: 30 QT: 354 QTc: 411 Interpretive Statements ATRIAL FIBRILLATION LOW QRS VOLTAGE IN PRECORDIAL LEADS [QRS DEFLECTION < 1.0 mV IN CHEST LEADS] ABNORMAL RHYTHM ECG Compared to ECG 05/12/2021 23:20:21 No significant changes Electronically Signed On 12-23-2021 18:39:06 CDT by Sanaz Yanes M.D. [id number]
--- NOTE | 2021-12-22 22:48 | XRR_ITS ---
PROCEDURE INFORMATION: Exam: XR Chest Exam date and time: 12/22/2021 11:03 PM Age: 61 years old Clinical indication: Sternal or substernal pain; Additional info: Chest pain TECHNIQUE: Imaging protocol: XR of the chest. Views: 1 view. COMPARISON: CR XR chest 2V* [id number] 07/08/2021 2:48 PM FINDINGS: Lungs: No CHF/pulmonary edema. Poor inspiration somewhat limits evaluation, especially of the lung bases. Visible lungs appear essentially clear. Pleural spaces: No visible pneumothorax. No definite pleural fluid. Heart/Mediastinum: Mild to moderate cardiomegaly, possibly slightly increased in the interval. Bones/joints: No significant acute finding. XR/XR chest 1V portable [id number] IMPRESSION: 1. No definite CHF or pneumonia. 2. Other findings discussed above.
[2021-12-22 22:55] VITALS: BP 144/81; PULSE 83; RESP 16; TEMP 36.6; O2SAT 94; BMI 30.7
--- NOTE | 2021-12-22 23:13 | CTR_ITS ---
PROCEDURE INFORMATION: Exam: CT Head Without Contrast Exam date and time: 12/22/2021 11:38 PM Age: 61 years old Clinical indication: Weakness, extremity and other: Chest pain; Left; Additional info: Lle weakness and sensory changes TECHNIQUE: Imaging protocol: Computed tomography of the head without contrast. Radiation optimization: All CT scans at this facility use at least one of these dose optimization techniques: automated exposure control; mA and/or kV adjustment per patient size (includes targeted exams where dose is matched to clinical indication); or iterative reconstruction. COMPARISON: CT head wo con* [id number] 12/18/2021 1:55 PM RADIATION DOSE METRICS: Total DLP (mGy-cm): 815.18 FINDINGS: Brain: No acute intracranial hemorrhage or mass effect. There is very mild decreased attenuation in the periventricular white matter, likely from microvascular disease. Large old infarct involving the right temporal/parietal region, unchanged. No definite acute infarct by CT. MRI could be more sensitive/specific for detection, as clinically directed. Cerebral ventricles: Ventricle size is unchanged, within normal limits for age. Paranasal sinuses: Included paranasal sinuses are essentially clear. Mastoid air cells: No significant acute finding. Vasculature: Vascular calcifications in the internal carotid and vertebral basilar systems. Bones/joints: No definite acute skull fracture. Soft tissues: No significant acute finding. CT/CT head wo con* [id number] IMPRESSION: 1. No acute intracranial hemorrhage or mass effect. 2. Changes of microvascular disease, and old right-sided infarct. 3. No definite acute infarct by CT, see above. 4. Other findings discussed above.
[2021-12-22] MEDS: aspirin 81 mg Chew Tablet 324 MG PO (23:19)
[2021-12-23 00:01] VITALS: BP 127/65; PULSE 89; RESP 17; O2SAT 97
[2021-12-23 00:07] LABS: Basophils # 0.1 10^3/uL (0.0-0.1); Basophils % 0.8 %; Eosinophils # 0.2 10^3/uL (0.0-0.8); Eosinophils % 2.9 %; Hematocrit 42.2 % (37.0-47.0); Hemoglobin 13.8 g/dL (11.5-15.3); Lymphocytes # 1.7 10^3/uL (0.8-4.8); Lymphocytes % 23.8 %; Mean Corpuscular HGB Conc 32.7 g/dL (30.0-36.0); Mean Corpuscular Hemoglobin 31.4 pg (28.0-34.0); Mean Corpuscular Volume 96.1 fl (81-99); Monocytes % 13.7 %; Neutrophils # 4.24 10^3/uL (1.8-7.7); Neutrophils % 58.5 %; Nucleated Red Blood Cells % 0 %; Platelet Count 290 10^3/cmm (130-400); Red Blood Count 4.39 10^6/uL (4.1-5.3); Red Cell Distribution Width 14.6 % (12.1-15.1); White Blood Count 7.2 10^3/uL (4.0-10.0)
--- NOTE | 2021-12-23 00:09 | USR_ITS ---
PROCEDURE INFORMATION: Exam: US Duplex Left Lower Extremity Veins, Limited Exam date and time: 12/23/2021 12:12 AM Age: 61 years old Clinical indication: Swelling (edema) of limb; Lower extremity, left; Additional info: Weakness, swelling TECHNIQUE: Imaging protocol: Real-time Duplex ultrasound of the Left Lower Extremity with 2-D mauricio scale, color Doppler flow and spectral waveform analysis with image documentation. Limited exam focused on the left lower extremity veins. COMPARISON: No relevant prior studies available. FINDINGS: Evaluated veins include the left common femoral, proximal profunda femoral, proximal/mid/distal superficial femoral, popliteal, posterior tibial, peroneal, and proximal greater saphenous veins. No visible clot in the included veins. The included veins appear normally compressible. Duplex Doppler evaluation demonstrates flow in the evaluated veins. US/CV venous duplex [facility] [id number] IMPRESSION: No evidence of acute left lower extremity DVT.
[2021-12-23 00:49] LABS: Alanine Aminotransferase 15 U/L (0-33); Alkaline Phosphatase 89 IU/L (35-105); Blood Urea Nitrogen 20 mg/dL (8-23); Calcium 9.6 mg/dL (8.5-10.5); Carbon Dioxide 20 mmol/L (22-29); Chloride 104 mmol/L (98-107); Globulin 2.8 g/dL (1.3-4.6); Glomerular Filtration Rate 63.2 mL/min (90-130); Glucose 128 mg/dL (65-115); Lipase 50 U/L (13-60); Osmolality Calculated 292 mOsm/kg (285-295); Sodium 139 mmol/L (136-145); Total Bilirubin 0.5 mg/dL (0.15-1.2); Total Protein 6.8 g/dL (6.6-8.7); Troponin(5th) Baseline 13 ng/L (0-10)
[2021-12-23 00:57] LABS: Anion Gap 19.1 (5-19); Aspartate Amino Transferase 22 U/L (0-32); Potassium 4.1 mmol/L (3.5-5.1)
[2021-12-23 01:39] LABS: NT Pro B Type Natriuretic Pept 1504 pg/mL (0-125)
[2021-12-23 03:05] VITALS: PULSE 84; RESP 16; O2SAT 96
[2021-12-23 07:38] LABS: Troponin 5 2HR 13.13 ng/L (0-10); Troponin 5 2HR Delta 0.13 ABS# (0-10)
== END 2021-12-23 03:05 | disposition home or self-care (01) ==
PROVIDERS: Emergency Provider Emergency Medicine; PCP Clinical Nurse Specialist Adult Health
DX: R07.9 Chest pain, unspecified (principal); R53.1 Weakness; R00.2 Palpitations; I48.91 Unspecified atrial fibrillation; I25.10 Atherosclerotic heart disease of native coronary artery without angina pectoris; I50.9 Heart failure, unspecified; J44.9 Chronic obstructive pulmonary disease, unspecified; E78.5 Hyperlipidemia, unspecified; I10 Essential (primary) hypertension; Z86.73 Personal history of transient ischemic attack (TIA), and cerebral infarction without residual deficits; Z79.01 Long term (current) use of anticoagulants
CPT/HCPCS: 70450; 71045; 80053; 83690; 83880; 84484; 85025; 93005; 93971; 99283

== ENCOUNTER 2021-12-24 06:00 | Outpatient (RCR) | payer MEDICAID, SELFPAY | END 2022-01-05 12:12 | disposition home or self-care (01) | LOC: SPT 06:00 | PROVIDERS: PCP Clinical Nurse Specialist Adult Health; Referring Provider Clinical Nurse Specialist Adult Health; Visit Provider Clinical Nurse Specialist Adult Health | DX: M25.562 Pain in left knee (principal); G89.29 Other chronic pain | CPT/HCPCS: 97162 ==

== ENCOUNTER 2021-12-26 10:36 | Day surgery (SDC) | payer MEDICAID, SELFPAY ==
[2021-12-22 17:25] LABS: Adenovirus Not Detected (NOT DETECT); Chlamydia Pneumoniae Not Detected (NOT DETECT); Coronavirus 229E,HKU1,NL63,OC4 Not Detected (NOT DETECT); Human Metapneumovirus Not Detected (NOT DETECT); Human Rhinovirus/Enterovirus Not Detected (NOT DETECT); Influenza A Not Detected (NOT DETECT); Influenza A H1 Not Detected (NOT DETECT); Influenza A H1-2009 Not Detected (NOT DETECT); Influenza A H3 Not Detected (NOT DETECT); Influenza B Not Detected (NOT DETECT); Mycoplasma Pneumoniae Not Detected (NOT DETECT); Parainfluenza Virus Type 1 Not Detected (NOT DETECT); Parainfluenza Virus Type 2 Not Detected (NOT DETECT); Parainfluenza Virus Type 3 Not Detected (NOT DETECT); Parainfluenza Virus Type 4 Not Detected (NOT DETECT); Respiratory Syncytial Virus A Not Detected (NOT DETECT); Respiratory Syncytial Virus B Not Detected (NOT DETECT); SARS-COV-2 Not Detected (NOT DETECT)
[2021-12-24 13:51] VITALS: BMI 30.7
[2021-12-26 10:53] VITALS: BP 129/81; PULSE 91; RESP 18; TEMP 36.1; O2SAT 97
[2021-12-26] MEDS: sodium chloride 0.9% 1,000 ML 30 ML IV (11:25)
--- NOTE | 2021-12-26 11:40 | USCV_ITS ---
Darlene Michael Age: 61 Gender: F : 1960 Exam Date: 12/26/2021 12:10 Ordering Phys: Rodrigo Pierce M.D ([email or web address]) Technologist: Rahel Cardona [place] [facility] [place]: [place] BP: / HR: Rhythm: Sinus Technical Quality: Good MEASUREMENTS (Male / Female) Normal Values Medications Complications None Proc. Components After anesthesia team administered anesthesia, we advanced JOLENE probe FINDINGS Left Ventricle LV systolic function is borderline normal with EF of 50% Right Ventricle Grossly normal Right Atrium Grossly normal Left Atrium Left atrial enlargement LA Appendage No left atrial appendage thrombus seen IA Septum Normal Mitral Valve Structurally normal valve. There is moderate mitral regurgitation noed Aortic Valve Aortic valve has three cusps. Tricuspid Valve Structurally normal valve. Moderate tricuspid regurgitation Pulmonic Valve Grossly normal Pericardium Normal Aorta Atherosclerotic plaque is noted CONCLUSIONS LV systolic function is normal with EF of 50% Left atrial enlargement Mitral valve is structurally normal. Moderate mitral regurgitation Moderate tricuspid regurgitation Atherosclerotic plaque noted in the aorta Rodrigo Pierce MD (Electronically Signed) Final Date: 28 December 2021 12:30 S
--- NOTE | 2021-12-26 11:47 | ANES.PREANE2 ---
Documented by User: Eneida Negron CRNA 12/26/21 11:52 Pre-Anesthetic Assessment Height/Weight: Height 1.68 m Weight 86.183 kg Temp Pulse Resp BP Pulse Ox 97.0 F L 91 18 129/81 97 12/26/21 10:53 12/26/21 10:53 12/26/21 10:53 12/26/21 10:53 12/26/21 10:53 Preop Diagnosis: Acute left leg/ischemia/thromboembolic phenomena, leg pain Operation Date: 12/26/21 12:00 Proposed Procedures p JOLENE /I34.0 nonrheumatic mitral (valve) insufficiency(Not Applicable) - Rodrigo Pierce M.D Familial anesthetic complications: none Was Beta Isabel taken within 24 hours: Yes Was Clonidine taken within 24 hours: N/A Last intake: Intake Last Liquid Date 12/25/21 Last Liquid Time 16:00 Last Solid Date 12/25/21 Last Solid Time 16:00 Social No alcohol and No tobacco Exam alert, oriented x 3 and clear to auscultation bilaterally afib Airway Submandibular: within normal limits Cervical ROM: within normal limits Mallampati: Class III Dentition: false History/ROS No significant history except as noted Pulmonary Chronic Obstructive Pulmonary Disease, Exertional Dyspnea and Shortness of Breath CV/HEM Atrial Fibrillation, Coronary Artery Disease, Congestive Heart Failure, Hypertension and Myocardial Infarction multiple heart stents last one placed 2019 None reported Hepatic None reported GI Gastroesophageal Reflux Disease (well controlled with pepcid) Metabolic Hyperlipidemia Musc/skel Weakness (states her left leg gives out with activity) Neuropsych Cerebrovascular Accident (x2) Anesthetic Plan ASA status: 4 Anesthesia: Anesthesia Evaluation and MAC Risk of > 500 ml blood loss (7ml/kg in children): No Medications/Allergies Home Medications Medication Instructions Recorded Confirmed Last Taken Type nitroglycerin 0.4 mg sublingual 0.4 mg SUBLINGUAL Q5M PRN 10/17/19 12/26/21 Unknown History tablet (Nitrostat) apixaban 5 mg tablet (Eliquis) 5 mg PO BID 04/15/21 12/26/21 12/26/21 History atorvastatin 80 mg tablet 80 mg PO DAILY 04/15/21 12/26/21 12/26/21 History famotidine 20 mg tablet 20 mg PO DAILY 04/15/21 12/26/21 12/25/21 History metoprolol succinate 100 mg 50 mg PO BID tab 04/15/21 12/26/21 12/26/21 History tablet,extended release 24 hr diltiazem HCl 120 mg capsule,24 120 mg PO DAILY #30 cap 06/30/21 12/26/21 12/26/21 Rx hr,extended release clopidogrel 75 mg tablet See Rx Instructions .ROUTE 07/21/21 12/26/21 12/26/21 Rx .COMPLEX #90 tablet potassium chloride 10 mEq 30 meq PO DIRECTED #270 tab 10/13/21 12/26/21 12/25/21 Rx tablet,extended release (Klor-Con) furosemide 20 mg tablet 60 mg PO DIRECTED #270 tab 12/11/21 12/26/21 12/26/21 Rx zolpidem 5 mg tablet 5 mg PO PRN PRN 12/24/21 12/26/21 12/25/21 History Allergies Allergy/AdvReac Type Severity Reaction Status Date / Time No Known Allergies Allergy Verified 12/26/21 10:49 Current Medications Generic Name Dose Route Start Last Admin Trade Name Freq PRN Reason Stop Dose Admin Sodium Chloride 1,000 mls @ 30 mls/hr 12/26/21 10:45 12/26/21 11:25 Sodium Chloride 0.9% IV 12/27/21 10:44 30 mls/hr .Q24H MARIAMA Administration PFSH Anesthesia Medical History ASHD (arteriosclerotic heart disease) Basilar artery thrombosis Congestive heart failure COPD (chronic obstructive pulmonary disease) CVA (cerebral vascular accident) Dyslipidemia HTN (hypertension) Ischemic cardiomyopathy Palpitations Surgical History History of brain surgery History of coronary artery stent placement S/P angioplasty with stent S/P section Status post colonoscopy Family History Father CAD (coronary artery disease) Hypertension CHF (congestive heart failure) S/P CABG (coronary artery bypass graft) Mother Cancer BREAST CA Social History Smoking and tobacco status: former smoker Quit status (tobacco): has quit using tobacco Year quit tobacco: 2020 Former quit date comment: 2ppd x 55 years Alcohol intake: never Marital status: Single Current occupational status: employed Data Anesthesia Cardiac Studies: Echocardiogram 09/17/21 Echocardiogram Ultrasound 02/16/20 Holter Monitor 02/20/20
--- NOTE | 2021-12-26 12:09 | W.PM.OPSFHP ---
Same Day Surgery H&P Indication for Procedure/HPI DATE OF PROCEDURE: December 26, 2021 CHIEF COMPLAINT/INDICATIONFOR SURGICAL PROCEDURE: Mitral regurgitation PREOP DIAGNOSIS: Acute left leg/ischemia/thromboembolic phenomena, leg pain PLANNED PROCEDURE: Operation Date: 12/26/21 12:00 Proposed Procedures p JOLENE /I34.0 nonrheumatic mitral (valve) insufficiency(Not Applicable) - Rodrigo Pierce M.D 61 year old woman with PMH of CVA, PAD and CAD who has been having significant shortness of breath. TTE shows moderate to severe mitral regurgitation. Plan for JOLENE today ROS CONSTITUTIONAL: No fever chills weight loss or gain or night sweats. [] HEENT: Normocephalic, atraumatic.[] RESPIRATORY: No cough, sputum, hemoptysis or wheezing.[] CARDIOVASCULAR: Has shortness of breath GI: no nausea vomiting diarrhea. [] MANAGER PUBLISHING: No numbness, tingling, weakness or loss of function in any part of the body. [] MUSCULOSKELETAL: No knee or joint pain or rashes. [] Medications/Allergies* Home Medications Medication Instructions Recorded Confirmed Type nitroglycerin 0.4 mg sublingual 0.4 mg SUBLINGUAL Q5M PRN 10/17/19 12/26/21 History tablet (Nitrostat) apixaban 5 mg tablet (Eliquis) 5 mg PO BID 04/15/21 12/26/21 History atorvastatin 80 mg tablet 80 mg PO DAILY 04/15/21 12/26/21 History famotidine 20 mg tablet 20 mg PO DAILY 04/15/21 12/26/21 History metoprolol succinate 100 mg 50 mg PO BID tab 04/15/21 12/26/21 History tablet,extended release 24 hr zolpidem 5 mg tablet 5 mg PO PRN PRN 12/24/21 12/26/21 History Allergies/Adverse Reactions Allergy/AdvReac Type Severity Reaction Status Date / Time No Known Allergies Allergy Verified 12/26/21 10:49 Current Medications: Generic Name Dose Route Start Last Admin Trade Name Freq PRN Reason Stop Dose Admin Sodium Chloride 1,000 mls @ 30 mls/hr 12/26/21 10:45 12/26/21 11:25 Sodium Chloride 0.9% IV 12/27/21 10:44 30 mls/hr .Q24H MARIAMA Administration Pertinent History/Comorbid Conditions* Medical History (Updated 12/23/21 @ 02:55 by Cm Celis MD) ASHD (arteriosclerotic heart disease) Basilar artery thrombosis Congestive heart failure COPD (chronic obstructive pulmonary disease) CVA (cerebral vascular accident) Dyslipidemia HTN (hypertension) Ischemic cardiomyopathy Palpitations Surgical History (Updated 07/14/21 @ 11:56 by ESTEVAN Sanchez) History of brain surgery History of coronary artery stent placement S/P angioplasty with stent S/P section Status post colonoscopy Family History (Updated 10/17/19 @ 10:54 by Maci Fitzpatrick RN) CAD (coronary artery disease) Father CHF (congestive heart failure) Father S/P CABG (coronary artery bypass graft) Father Cancer Mother BREAST CA Hypertension Father Social History Smoking and tobacco status: former smoker Quit status (tobacco): has quit using tobacco Year quit tobacco: 2020 Former quit date comment: 2ppd x 55 years Alcohol intake: never Marital status: Single Current occupational status: employed Pertinent Exam Findings alert, oriented x 3, clear to auscultation bilaterally and regular rate & rhythm GENERAL: Patient is alert, awake and oriented x3. [] NECK: No jugular vein distension. [] HEENT: No cyanosis. No icterus. No pallor. [] HEART: Regular S1 and S2. has grade 4/6 systolic murmur LUNGS: Clear to auscultate bilaterally. [] ABDOMEN: Soft, nontender and nondistended. Positive bowel sounds. No guarding, rebound or tenderness. [] CENTRAL NERVOUS SYSTEM: Grossly nonfocal. [] EXTREMITIES: Lower extremities with 1+ edema bilaterally. Pulses palpable in the lower extremities, both dorsalis pedis and posterior tibial. [] Conscious Sedation Assessment Anesthesia team available Recommendations Surgery/Procedure today (Transesopheageal echocardiogram) Other Plans: We will proceed with transesophageal echocardiogram Coding Level of Care Code Acute Intelligence Research Specialist for Carlos Salgado
[2021-12-26 12:26] VITALS: BP 116/71; PULSE 83; RESP 16; TEMP 36.1; O2SAT 91
[2021-12-26 12:40] VITALS: BP 118/69; PULSE 86; RESP 18; O2SAT 92
--- NOTE | 2021-12-26 13:03 | ANE.PACU2 ---
Inpatient post-anesthesia follow up: Airway intact: Yes Vital signs: Temperature 97.0 F Pulse Rate 86 Respiratory Rate 18 Blood Pressure 118/69 Pulse Oximetry 92 Oxygen Delivery Me thod Room Air Oxygen Flow Rate 2 Fraction of Inspir ed Oxygen Hydration adequate: Yes Nausea and vomiting: No Pain level: 2 Mental status: Baseline
== END 2021-12-26 13:04 | disposition home or self-care (01) ==
PROVIDERS: PCP Clinical Nurse Specialist Adult Health; Visit Provider Internal Medicine
PROC: (CPT 93312; principal; 2021-12-26 12:00)
DX: I34.0 Nonrheumatic mitral (valve) insufficiency (principal); I07.1 Rheumatic tricuspid insufficiency; Z86.73 Personal history of transient ischemic attack (TIA), and cerebral infarction without residual deficits; I73.9 Peripheral vascular disease, unspecified; I25.10 Atherosclerotic heart disease of native coronary artery without angina pectoris; E78.5 Hyperlipidemia, unspecified; I10 Essential (primary) hypertension; Z95.5 Presence of coronary angioplasty implant and graft; Z82.49 Family history of ischemic heart disease and other diseases of the circulatory system; Z83.3 Family history of diabetes mellitus; Z87.891 Personal history of nicotine dependence
CPT/HCPCS: 87635; 93312; 93320; 93325; J2704; J7030

== ENCOUNTER → 2022-01-09 11:33 | Outpatient (BNVA) | payer MEDICAID, SELFPAY | PROVIDERS: Visit Provider Internal Medicine Cardiovascular Disease | DX: I25.10 Atherosclerotic heart disease of native coronary artery without angina pectoris (principal); E78.5 Hyperlipidemia, unspecified; I11.0 Hypertensive heart disease with heart failure; I50.22 Chronic systolic (congestive) heart failure; I25.5 Ischemic cardiomyopathy; I48.91 Unspecified atrial fibrillation; I74.5 Embolism and thrombosis of iliac artery; Z86.73 Personal history of transient ischemic attack (TIA), and cerebral infarction without residual deficits; J44.9 Chronic obstructive pulmonary disease, unspecified; I65.1 Occlusion and stenosis of basilar artery; I34.0 Nonrheumatic mitral (valve) insufficiency; Z87.891 Personal history of nicotine dependence; Z79.01 Long term (current) use of anticoagulants | CPT/HCPCS: 99214 ==

== ENCOUNTER 2022-01-10 21:10 | Emergency (ER) | payer MEDICAID, SELFPAY ==
[2022-01-10 21:14] VITALS: BP 160/94; PULSE 100; RESP 18; TEMP 36.4; O2SAT 97; BMI 29.0
[2022-01-10 23:10] VITALS: BP 157/102; PULSE 77; RESP 18; O2SAT 98
--- NOTE | 2022-01-10 23:14 | CTR_ITS ---
PROCEDURE INFORMATION: Exam: CT Head Without Contrast Exam date and time: 01/10/2022 11:31 PM Age: 61 years old Clinical indication: Pain; Headache not specified; Patient HX: C/O ALVARENGA w HTN HX of stroke x 2; Additional info: Headache, elev b/p TECHNIQUE: Imaging protocol: Computed tomography of the head without contrast. Radiation optimization: All CT scans at this facility use at least one of these dose optimization techniques: automated exposure control; mA and/or kV adjustment per patient size (includes targeted exams where dose is matched to clinical indication); or iterative reconstruction. COMPARISON: CT head wo con* [id number] 12/22/2021 11:38 PM RADIATION DOSE METRICS: Total DLP (mGy-cm): 808.25 FINDINGS: Brain: Santy cisterna magna which is a normal variant. Stable chronic right posterior temporal/parietal l lobe infarct with encephalomalacia. Cerebral ventricles: No ventriculomegaly. Paranasal sinuses: Visualized sinuses are unremarkable. No fluid levels. Mastoid air cells: Visualized mastoid air cells are well aerated. Vasculature: Severe calcified intracranial atherosclerotic vessel disease. Bones/joints: Unremarkable. No acute fracture. Soft tissues: Unremarkable. CT/CT head wo con* [id number] IMPRESSION: No acute intracranial findings.
--- NOTE | 2022-01-10 23:14 | ED_ITS ---
Documented by User: ESTEVAN Reyes 01/11/22 01:02 HPI - General Adult General: Chief complaint: General Medical Stated complaint: Very High Blood Pressure Time Seen by Provider: 01/10/22 23:13 History of Present Illness: 61-year-old female comes in today with complaints of headache and elevated blood pressure. Patient reports since arriving to the ER her headache has improved. Patient continues to have some elevation of blood pressure. Blood pressure was 160 at home. At this time is 155. Patient has had a previous CVA x2 and is worried about a recurrent stroke. Patient has chronic A. fib, and takes routine medications for better control of the A. fib and also is anticoagulated. Associated symptoms: Reports headache(s); Deny chest pain, dyspnea, nausea or vomiting Review of Systems General: Reports: 10 or more systems reviewed and unremarkable except in HPI and below Card: Denies: chest pain Resp: Denies: dyspnea GI: Denies: nausea or vomiting Neuro: Reports: headache(s) PFS ED PFSH: Medical History ASHD (arteriosclerotic heart disease) Basilar artery thrombosis Congestive heart failure COPD (chronic obstructive pulmonary disease) CVA (cerebral vascular accident) Dyslipidemia HTN (hypertension) Ischemic cardiomyopathy Palpitations Surgical History History of brain surgery History of coronary artery stent placement S/P angioplasty with stent S/P section Status post colonoscopy Family History Father CAD (coronary artery disease) Hypertension CHF (congestive heart failure) S/P CABG (coronary artery bypass graft) Mother Cancer BREAST CA Social History Smoking and tobacco status: former smoker Quit status (tobacco): has quit using tobacco Year quit tobacco: 2020 Former quit date comment: 2ppd x 55 years Alcohol intake: never Marital status: Single Current occupational status: employed Physical Exam Const: COMMON NORMALS: alert HENMT: COMMON NORMALS: normocephalic HEAD & SCALP: normocephalic Neck/C-Spine: COMMON NORMALS: full ROM Resp: COMMON NORMALS: normal respiratory effort and clear to auscultation bilaterally AUSCULTATION: clear to auscultation bilaterally Cardio: COMMON NORMALS: regular rate, S1 normal heart sound present and S2 n ormal heart sound present RATE: regular rate RHYTHM: abnormal rhythm HEART SOUNDS: S1 normal heart sound present and S2 normal heart sound present GI: COMMON NORMALS: Soft to palpation and non-tender PALPATION: Yes Soft to palpation Extremity: COMMON NORMALS: no pedal edema Neuro: SENSORIUM/ORIENTATION: Yes alert Skin: COMMON NORMALS: no rashes or lesions noted GENERAL SKIN EXAM: no rashes or lesions noted Course Vital Signs: Vital signs: Vital Signs Temperature 97.6 F 01/10/22 21:14 Pulse Rate 89 01/11/22 01:05 Respiratory Rate 18 01/11/22 01:05 Blood Pressure 147/78 01/11/22 01:05 Pulse Oximetry 97 01/11/22 01:05 [facility] - General Adult Medical Decision Making 61-year-old female comes in today for complaints of elevated blood pressure and right-sided headache. Patient does have a history of CVA on the right dacia sphere of the brain. Patient is alert and oriented. Patient responds appropriate to questioning. Patient reported some improvement of the headache since arriving to the ER. On exam blood pressure is 161 systolic. Respirations are even lungs are clear to auscultation. Patient is afebrile. Some mild weakness is noted on the left side which is chronic. Patient is in atrial fib which is chronic. Differential diagnosis includes but not limited to stroke syndrome, anxiety, migraine. CT of the head showed no new abnormalities, chest x-ray showed stable COPD. CBC and CMP were unremarkable. BNP was was near baseline. Patient was given 0.1 of clonidine which improved her blood pressure to 150 systolic. Commended patient follow-up with primary care on Wednesday for recheck of blood pressure. Recommend continuation of Tylenol as needed for headache. Patient agreed to plan and need for follow-up. Lab Data : 01/10/22 23:46 01/10/22 23:46 Radiology Impressions Chest X-Ray 01/10/22 23:14 IMPRESSION: Stable COPD . Head CT 01/10/22 23:14 IMPRESSION: No acute intracranial findings. Laboratory Results WBC 7.8 10^3/uL (4.0-10.0) 01/10/22 23:46 RBC 4.92 10^6/uL (4.1-5.3) 01/10/22 23:46 Hgb 15.4 g/dL (11.5-15.3) H 01/10/22 23:46 Hct 46.0 % (37.0-47.0) 01/10/22 23:46 MCV 93.5 fl (81-99) 01/10/22 23:46 MCH 31.3 pg (28.0-34.0) 01/10/22 23:46 MCHC 33.5 g/dL (30.0-36.0) 01/10/22 23:46 RDW 14.0 % (12.1-15.1) 01/10/22 23:46 Plt Count 294 10^3/cmm (130-400) 01/10/22 23:46 MPV 9.8 fL (7.4-10.4) 01/10/22 23:46 Neut % (Auto) 52.7 % 01/10/22 23:46 Lymph % (Auto) 24.5 % 01/10/22 23:46 [place] % (Auto) 18.3 % 01/10/22 23:46 Eos % (Auto) 3.6 % 01/10/22 23:46 Baso % (Auto) 0.6 % 01/10/22 23:46 Neut # (Auto) 4.13 10^3/uL (1.8-7.7) 01/10/22 23:46 Lymph # (Auto) 1.9 10^3/uL (0.8-4.8) 01/10/22 23:46 [place] # (Auto) 1.4 10^3/uL (0.2-0.9) H 01/10/22 23:46 Eos # (Auto) 0.3 10^3/uL (0.0-0.8) 01/10/22 23:46 Baso # (Auto) 0.1 10^3/uL (0.0-0.1) 01/10/22 23:46 Nucleated RBC % (auto) 0 % 01/10/22 23:46 Nucleated RBCs # 0.0 /100WBC 01/10/22 23:46 Sodium 138 mmol/L (136-145) 01/10/22 23:46 Potassium 3.4 mmol/L (3.5-5.1) L 01/10/22 23:46 Chloride 101 mmol/L (98-107) 01/10/22 23:46 Carbon Dioxide 23 mmol/L (22-29) 01/10/22 23:46 Anion Gap 17.4 (5-19) 01/10/22 23:46 BUN 20 mg/dL (8-23) 01/10/22 23:46 Creatinine 0.7 mg/dL (0.5-0.9) 01/10/22 23:46 GFR Calculation 84.5 mL/min (90-130) L 01/10/22 23:46 Glucose 130 mg/dL (65-115) H 01/10/22 23:46 Calculated Osmolality 290 mOsm/kg (285-295) 01/10/22 23:46 Calcium 10.0 mg/dL (8.5-10.5) 01/10/22 23:46 Total Bilirubin 0.4 mg/dL (0.15-1.2) 01/10/22 23:46 AST 19 U/L (0-32) 01/10/22 23:46 ALT 16 U/L (0-33) 01/10/22 23:46 Alkaline Phosphatase 102 IU/L (35-105) 01/10/22 23:46 NT-Pro-B Natriuret Pep 1229 pg/mL (0-125) H 01/10/22 23:46 Total Protein 8.3 g/dL (6.6-8.7) 01/10/22 23:46 Albumin 4.1 g/dL (3.5-5.2) 01/10/22 23:46 Globulin 4.2 g/dL (1.3-4.6) 01/10/22 23:46 EKG Data EKG 1: EKG interpretation date: 01/11/22 EKG interpretation time: 00:27 Interpretation: EKG shows a atrial fib with a controlled rate at [address] elevation or ectopy is noted. Similar exam to prior evaluation from 12/22/2021. Computer generated interpretation: Chest X-Ray 01/10/22 23:14 IMPRESSION: Stable COPD . Head CT 01/10/22 23:14 IMPRESSION: No acute intracranial findings. Discharge Plan Discharge Patient Disposition: Home Clinical Impression: Headache Qualifiers: Headache type: unspecified Headache chronicity pattern: unspecified pattern Intractability: not intractable Qualified Code(s): R51.9 - Headache, unspecified HTN (hypertension) Qualifiers: Hypertension type: unspecified Qualified Code(s): I10 - Essential (primary) hypertension Condition: Stable Prescriptions: No Action nitroglycerin [Nitrostat] 0.4 mg tablet, sublingual 0.4 mg SUBLINGUAL Q5M PRN (Reason: Chest Pain) 0RF diltiazem HCl 120 mg capsule,extended release 24 hr 120 mg PO DAILY Qty: 30 6RF Eliquis 5 mg tablet 5 mg PO BID 0RF atorvastatin 80 mg tablet 80 mg PO DAILY 0RF famotidine 20 mg tablet 20 mg PO DAILY 0RF metoprolol succinate 100 mg tablet extended release 24 hr 50 mg PO BID 0RF potassium chloride [Klor-Con 10] 10 mEq tablet extended release 30 meq PO DIRECTED 0RF Rx Instructions: Take 20mEq (2 tabs) in AM and 10mEq (1 tab) in PM clopidogrel 75 mg tablet See Rx Instructions .ROUTE .COMPLEX Qty: 90 3RF Dose Instruction: TAKE 1 TABLET BY MOUTH EVERY DAY Rx Instructions: TAKE 1 TABLET BY MOUTH EVERY DAY furosemide 20 mg tablet 60 mg PO DIRECTED Qty: 270 1RF Rx Instructions: Take 40mg (2 tabs) in AM and 20mg (1 tabs) in PM zolpidem 5 mg Tablet 5 mg PO PRN PRN (Reason: Sleep) 0RF Discharge Orders: Discharge ED (Routine); Ordered 01/11/22 Ordered By: Maurizio Rey Discharge Diet: Usual diet Discharge Activity: Increase activity as tolerated Patient Instructions: Acute Headache (ED) Activity Restrictions/Additional Instructions: Home and rest. Drink plenty of fluids. Tylenol as needed for headache. Follow-up with primary care Wednesday morning for recheck of blood pressure. Return to ER for new concerns. Coding Level of Care Code ED Rd Mechanical Engineer for Chg Fwd Exam Comprehensive Documented by User: Willy White, DO 01/11/22 02:53 HPI - General Adult General: Chief complaint: General Medical Stated complaint: Very High Blood Pressure Time Seen by Provider: 01/10/22 23:13 PFSH ED PFSH: Medical History ASHD (arteriosclerotic heart disease) Basilar artery thrombosis Congestive heart failure COPD (chronic obstructive pulmonary disease) CVA (cerebral vascular accident) Dyslipidemia HTN (hypertension) Ischemic cardiomyopathy Palpitations Surgical History History of brain surgery History of coronary artery stent placement S/P angioplasty with stent S/P section Status post colonoscopy Family History Father CAD (coronary artery disease) Hypertension CHF (congestive heart failure) S/P CABG (coronary artery bypass graft) Mother Cancer BREAST CA Social History Smoking and tobacco status: former smoker Quit status (tobacco): has quit using tobacco Year quit tobacco: 2020 Former quit date comment: 2ppd x 55 years Alcohol intake: never Marital status: Single Current occupational status: employed Course Vital Signs: Vital signs: Vital Signs Temperature 97.6 F 01/10/22 21:14 Pulse Rate 89 01/11/22 01:05 Respiratory Rate 18 01/11/22 01:05 Blood Pressure 147/78 01/11/22 01:05 Pulse Oximetry 97 01/11/22 01:05 MDM - General Adult Medical Decision Making 61-year-old female comes in today for complaints of elevated blood pressure and right-sided headache. Patient does have a history of CVA on the right hemisphere of the brain. Patient is alert and oriented. Patient responds appropriate to questioning. Patient reported some improvement of the headache since arriving to the ER. On exam blood pressure is 161 systolic. Respirations are even lungs are clear to auscultation. Patient is afebrile. Some mild weakness is noted on the left side which is chronic. Patient is in atrial fib which is chronic. Differential diagnosis includes but not limited to stroke syndrome, anxiety, migraine. CT of the head showed no new abnormalities, chest x-ray showed stable COPD. CBC and CMP were unremarkable. BNP was was near baseline. Patient was given 0.1 of clonidine which improved her blood pressure to 150 systolic. Commended patient follow-up with primary care on Wednesday for recheck of blood pressure. Recommend continuation of Tylenol as needed for headache. Patient agreed to plan and need for follow-up. This patient was originally seen by ESTEVAN Brennan.? I agree with his history, evaluation, and treatment. Lab Data : 01/10/22 23:46 01/10/22 23:46 Radiology Impressions Chest X-Ray 01/10/22 23:14 IMPRESSION: Stable COPD . Head CT 01/10/22 23:14 IMPRESSION: No acute intracranial findings. Laboratory Results WBC 7.8 10^3/uL (4.0-10.0) 01/10/22 23:46 RBC 4.92 10^6/uL (4.1-5.3) 01/10/22 23:46 Hgb 15.4 g/dL (11.5-15.3) H 01/10/22 23:46 Hct 46.0 % (37.0-47.0) 01/10/22 23:46 MCV 93.5 fl (81-99) 01/10/22 23:46 MCH 31.3 pg (28.0-34.0) 01/10/22 23:46 MCHC 33.5 g/dL (30.0-36.0) 01/10/22 23:46 RDW 14.0 % (12.1-15.1) 01/10/22 23:46 Plt Count 294 10^3/cmm (130-400) 01/10/22 23:46 MPV 9.8 fL (7.4-10.4) 01/10/22 23:46 Neut % (Auto) 52.7 % 01/10/22 23:46 Lymph % (Auto) 24.5 % 01/10/22 23:46 [place] % (Auto) 18.3 % 01/10/22 23:46 Eos % (Auto) 3.6 % 01/10/22 23:46 Baso % (Auto) 0.6 % 01/10/22 23:46 Neut # (Auto) 4.13 10^3/uL (1.8-7.7) 01/10/22 23:46 Lymph # (Auto) 1.9 10^3/uL (0.8-4.8) 01/10/22 23:46 [place] # (Auto) 1.4 10^3/uL (0.2-0.9) H 01/10/22 23:46 Eos # (Auto) 0.3 10^3/uL (0.0-0.8) 01/10/22 23:46 Baso # (Auto) 0.1 10^3/uL (0.0-0.1) 01/10/22 23:46 Nucleated RBC % (auto) 0 % 01/10/22 23:46 Nucleated RBCs # 0.0 /100WBC 01/10/22 23:46 Sodium 138 mmol/L (136-145) 01/10/22 23:46 Potassium 3.4 mmol/L (3.5-5.1) L 01/10/22 23:46 Chloride 101 mmol/L (98-107) 01/10/22 23:46 Carbon Dioxide 23 mmol/L (22-29) 01/10/22 23:46 Anion Gap 17.4 (5-19) 01/10/22 23:46 BUN 20 mg/dL (8-23) 01/10/22 23:46 Creatinine 0.7 mg/dL (0.5-0.9) 01/10/22 23:46 GFR Calculation 84.5 mL/min (90-130) L 01/10/22 23:46 Glucose 130 mg/dL (65-115) H 01/10/22 23:46 Calculated Osmolality 290 mOsm/kg (285-295) 01/10/22 23:46 Calcium 10.0 mg/dL (8.5-10.5) 01/10/22 23:46 Total Bilirubin 0.4 mg/dL (0.15-1.2) 01/10/22 23:46 AST 19 U/L (0-32) 01/10/22 23:46 ALT 16 U/L (0-33) 01/10/22 23:46 Alkaline Phosphatase 102 IU/L (35-105) 01/10/22 23:46 NT-Pro-B Natriuret Pep 1229 pg/mL (0-125) H 01/10/22 23:46 Total Protein 8.3 g/dL (6.6-8.7) 01/10/22 23:46 Albumin 4.1 g/dL (3.5-5.2) 01/10/22 23:46 Globulin 4.2 g/dL (1.3-4.6) 01/10/22 23:46 EKG Data EKG 1: Computer generated interpretation: Chest X-Ray 01/10/22 23:14 IMPRESSION: Stable COPD . Head CT 01/10/22 23:14 IMPRESSION: No acute intracranial findings. Discharge Plan Discharge Patient Disposition: Home Clinical Impression: Headache Qualifiers: Headache type: unspecified Headache chronicity pattern: unspecified pattern I ntractability: not intractable Qualified Code(s): R51.9 - Headache, unspecified HTN (hypertension) Qualifiers: Hypertension type: unspecified Qualified Code(s): I10 - Essential (primary) hypertension Condition: Stable Prescriptions: No Action nitroglycerin [Nitrostat] 0.4 mg tablet, sublingual 0.4 mg SUBLINGUAL Q5M PRN (Reason: Chest Pain) 0RF diltiazem HCl 120 mg capsule,extended release 24 hr 120 mg PO DAILY Qty: 30 6RF Eliquis 5 mg tablet 5 mg PO BID 0RF atorvastatin 80 mg tablet 80 mg PO DAILY 0RF famotidine 20 mg tablet 20 mg PO DAILY 0RF metoprolol succinate 100 mg tablet extended release 24 hr 50 mg PO BID 0RF potassium chloride [Klor-Con 10] 10 mEq tablet extended release 30 meq PO DIRECTED 0RF Rx Instructions: Take 20mEq (2 tabs) in AM and 10mEq (1 tab) in PM clopidogrel 75 mg tablet See Rx Instructions .ROUTE .COMPLEX Qty: 90 3RF Dose Instruction: TAKE 1 TABLET BY MOUTH EVERY DAY Rx Instructions: TAKE 1 TABLET BY MOUTH EVERY DAY furosemide 20 mg tablet 60 mg PO DIRECTED Qty: 270 1RF Rx Instructions: Take 40mg (2 tabs) in AM and 20mg (1 tabs) in PM zolpidem 5 mg Tablet 5 mg PO PRN PRN (Reason: Sleep) 0RF Discharge Orders: Discharge ED (Routine); Ordered 01/11/22 Ordered By: Maurizio Rey Discharge Diet: Usual diet Discharge Activity: Increase activity as tolerated Patient Instructions: Acute Headache (ED) Activity Restrictions/Additional Instructions: Home and rest. Drink plenty of fluids. Tylenol as needed for headache. Follow-up with primary care Rich morning for recheck of blood pressure. Re turn to ER for new concerns. Coding Level of Care Code ED Rd Mechanical Engineer for Carlos Fwpeter Exam Comprehensive
--- NOTE | 2022-01-10 23:14 | XRR_ITS ---
PROCEDURE INFORMATION: Exam: XR Chest Exam date and time: 01/10/2022 11:19 PM Age: 61 years old Clinical indication: Other: HTN; Prior surgery; Surgery date: 6+ months; Surgery type: Stent; Additional info: Elevated BP TECHNIQUE: Imaging protocol: XR of the chest. Views: 1 view. COMPARISON: CR (CHEST, ) 12/22/2021 11:03 PM FINDINGS: Lungs: Stable COPD . Pleural spaces: Unremarkable. No pleural effusion. No pneumothorax. Heart/Mediastinum: Unremarkable. No cardiomegaly. Bones/joints: Moderate thoracic spondylosis. XR/XR chest 1V portable [id number] IMPRESSION: Stable COPD .
[2022-01-10 23:30] VITALS: BP 161/99; PULSE 88; RESP 18; O2SAT 97
[2022-01-10] MEDS: cloNIDine 0.1 mg Tablet PO (23:47)
[2022-01-11] VITALS: BP 124/81; PULSE 81; RESP 18; O2SAT 98
--- NOTE | 2022-01-11 00:01 | ECG_ITS ---
[facility] Test Date: 2022-01-11 Pat Name: Darlene Michael Department: Room: Gender: Female Manufacturing Assembler: : 1960 Requested By: Maurizio Sharma Order Number: [id number] Roberta MD: Frank Mcginnis M.D. Measurements Intervals [place] Rate: 81 P: [place]: QRS: 48 QRSD: 82 T: 47 QT: 376 QTc: 437 Interpretive Statements ATRIAL FIBRILLATION SEPTAL MYOCARDIAL INFARCTION , OF INDETERMINATE AGE [40+ ms Q WAVE IN V1/V2] Compared to ECG 12/22/2021 22:51:00 Myocardial infarct finding now present Electronically Signed On 01-11-2022 8:24:43 CDT by Frank Mcginnis M.D. [email or web address]
[2022-01-11 00:04] LABS: Basophils # 0.1 10^3/uL (0.0-0.1); Basophils % 0.6 %; Eosinophils # 0.3 10^3/uL (0.0-0.8); Eosinophils % 3.6 %; Hemoglobin 15.4 g/dL (11.5-15.3); Lymphocytes # 1.9 10^3/uL (0.8-4.8); Lymphocytes % 24.5 %; Mean Corpuscular HGB Conc 33.5 g/dL (30.0-36.0); Mean Corpuscular Hemoglobin 31.3 pg (28.0-34.0); Mean Corpuscular Volume 93.5 fl (81-99); Mean Platelet Volume 9.8 fL (7.4-10.4); Monocytes # 1.4 10^3/uL (0.2-0.9); Monocytes % 18.3 %; Neutrophils # 4.13 10^3/uL (1.8-7.7); Neutrophils % 52.7 %; Nucleated Red Blood Cells % 0 %; Platelet Count 294 10^3/cmm (130-400); Red Blood Count 4.92 10^6/uL (4.1-5.3); White Blood Count 7.8 10^3/uL (4.0-10.0)
[2022-01-11 00:30] VITALS: BP 142/83; PULSE 86; RESP 18; O2SAT 98
[2022-01-11 00:32] LABS: Alanine Aminotransferase 16 U/L (0-33); Albumin Level 4.1 g/dL (3.5-5.2); Alkaline Phosphatase 102 IU/L (35-105); Anion Gap 17.4 (5-19); Aspartate Amino Transferase 19 U/L (0-32); Blood Urea Nitrogen 20 mg/dL (8-23); Carbon Dioxide 23 mmol/L (22-29); Chloride 101 mmol/L (98-107); Globulin 4.2 g/dL (1.3-4.6); Glomerular Filtration Rate 84.5 mL/min (90-130); Glucose 130 mg/dL (65-115); NT Pro B Type Natriuretic Pept 1229 pg/mL (0-125); Osmolality Calculated 290 mOsm/kg (285-295); Potassium 3.4 mmol/L (3.5-5.1); Sodium 138 mmol/L (136-145); Total Bilirubin 0.4 mg/dL (0.15-1.2); Total Protein 8.3 g/dL (6.6-8.7)
[2022-01-11 01:05] VITALS: BP 147/78; PULSE 89; RESP 18; O2SAT 97
== END 2022-01-11 01:05 | disposition home or self-care (01) ==
PROVIDERS: Emergency Provider Nurse Practitioner Family
DX: R51.9 Headache, unspecified (principal); I10 Essential (primary) hypertension; I48.20 Chronic atrial fibrillation, unspecified; I25.10 Atherosclerotic heart disease of native coronary artery without angina pectoris; J44.9 Chronic obstructive pulmonary disease, unspecified; R53.1 Weakness; Z86.73 Personal history of transient ischemic attack (TIA), and cerebral infarction without residual deficits; Z79.01 Long term (current) use of anticoagulants; Z79.02 Long term (current) use of antithrombotics/antiplatelets; Z87.891 Personal history of nicotine dependence
CPT/HCPCS: 70450; 71045; 80053; 83880; 85025; 93005; 99283

== ENCOUNTER → 2022-02-12 08:19 | Outpatient (BNVA) | payer MEDICAID, SELFPAY | PROVIDERS: Visit Provider Specialist | DX: G62.89 Other specified polyneuropathies (principal) | CPT/HCPCS: 95908; 95909 ==

== ENCOUNTER → 2022-03-18 14:43 | Outpatient (BNVA) | payer MEDICAID, SELFPAY | PROVIDERS: Visit Provider Internal Medicine | DX: I25.10 Atherosclerotic heart disease of native coronary artery without angina pectoris (principal); I11.0 Hypertensive heart disease with heart failure; I50.22 Chronic systolic (congestive) heart failure; I48.91 Unspecified atrial fibrillation; I73.9 Peripheral vascular disease, unspecified; I34.0 Nonrheumatic mitral (valve) insufficiency; Z86.73 Personal history of transient ischemic attack (TIA), and cerebral infarction without residual deficits; Z95.5 Presence of coronary angioplasty implant and graft | CPT/HCPCS: 99214 ==

== ENCOUNTER 2022-06-17 10:13 | Outpatient (CLI) | payer MEDICAID, SELFPAY ==
--- NOTE | 2022-06-17 10:21 | XR_ITS ---
WS: [id number] XR chest 2V* [id number] REASON FOR EXAM: shortness of breath and increased peripheral edema FINDINGS: Mild to moderate tortuosity and ectasia thoracic aorta. Cardiomegaly. Multiple calcified coronary artery stents. Reticular interstitial lung opacities in the mid and lower lung schreiber bilaterally. These changes bhavani ear to be chronic in nature and comparable to previous examination of 01/10/2022 No definite pleural effusion. XR/XR chest 2V* [id number] IMPRESSION: Stable abnormal chest without definite acute congestive heart failure.
== END 2022-06-17 10:14 | disposition home or self-care (01) ==
LOC: RAD 10:15
PROVIDERS: PCP Clinical Nurse Specialist Adult Health; Visit Provider Clinical Nurse Specialist Adult Health
DX: R06.02 Shortness of breath (principal); I77.810 Thoracic aortic ectasia; I51.7 Cardiomegaly
CPT/HCPCS: 71046; 80053; 80061; 83880

== ENCOUNTER → 2022-09-16 15:10 | Outpatient (BNVA) | payer MEDICAID, SELFPAY | PROVIDERS: PCP Clinical Nurse Specialist Adult Health; Visit Provider Internal Medicine | DX: I48.91 Unspecified atrial fibrillation (principal); I10 Essential (primary) hypertension | CPT/HCPCS: 80048; 83880 ==

== ENCOUNTER 2022-10-05 11:00 | Outpatient (CLI) | payer MEDICAID, SELFPAY ==
[2022-10-05 13:22] LABS: Anion Gap 14.4 (5-19); Blood Urea Nitrogen 22 mg/dL (8-23); Calcium 9.4 mg/dL (8.5-10.5); Carbon Dioxide 26 mmol/L (22-29); Chloride 101 mmol/L (98-107); Glomerular Filtration Rate 72.2 mL/min (90-130); Glucose 119 mg/dL (65-115); NT Pro B Type Natriuretic Pept 5070 pg/mL (0-125); Osmolality Calculated 290 mOsm/kg (285-295); Potassium 3.4 mmol/L (3.5-5.1); Sodium 138 mmol/L (136-145)
== END 2022-10-05 11:01 | disposition home or self-care (01) ==
LOC: LAB 11:06
PROVIDERS: PCP Clinical Nurse Specialist Adult Health; Visit Provider Internal Medicine Cardiovascular Disease
DX: I48.91 Unspecified atrial fibrillation (principal)
CPT/HCPCS: 36415; 80048; 83880

== ENCOUNTER 2023-09-10 08:42 | Outpatient (CLI) | payer MEDICARE, MEDICAID, SELFPAY ==
--- NOTE | 2023-09-10 08:46 | CTR_ITS ---
PROCEDURE INFORMATION: Exam: CT Chest Without and With Contrast; Diagnostic Exam date and time: 09/10/2023 9:46 AM Age: 63 years old Clinical indication: Cardiovascular condition or disease; Congestive heart failure (chf); Cause unknown; Prior surgery; Surgery date: 6+ months; Surgery type: Heart stents; Additional info: Preprocedural cardiovascular exam/chf, No history of trauma or recent surgery is provided. TECHNIQUE: Imaging protocol: Diagnostic computed tomography of the chest without and with contrast. 508image(s) are provided. Radiation optimization: All CT scans at this facility use at least one of these dose optimization techniques: automated exposure control; mA and/or kV adjustment per patient size (includes targeted exams where dose is matched to clinical indication); or iterative reconstruction. Contrast material: OMNI 350; Contrast volume: 95 ml; Contrast route: INTRAVENOUS (IV); Other technique: Axial images are available with sagittal and coronal reconstruction views. Automated dose exposure control is utilized. The DLP is 793.30. REPORTING DATA: Count of CT and Cardiac NM exams in prior 12 months: This patient has received 0 known CTs and 0 known cardiac nuclear medicine studies in the 12 months prior to the current study. COMPARISON: 1. CT angio chest PE protcl [id number] 05/13/2021 1:05 AM 2. CR XR chest 2V* [id number] 06/17/2022 10:[address] angio chest PE protcl [id number] 08/13/2019 4:10 AM RADIATION DOSE METRICS: Total DLP (mGy-cm): 793.3 FINDINGS: Trachea: The central airways are grossly patent. Lungs: There is some central heterogeneity of the parenchyma overall and could be seen with chronic reactive or small airways disease related changes. No subpleural interlobular septal type line thickening is currently appreciated to suggest post edema. There is some subsegmental atelectasis versus post inflammatory scarring demonstrated.No lobar consolidation is appreciated. There are some lung granulomatous related changes similar on the left. There is some chronic scarring with volume loss and some bronchiolectasis of the right middle lobe and inferior aspect of the lingula. Pleural spaces: No pneumothorax or pleural effusion is appreciated. Heart: No significant pericardial fluid collection is appreciated. There is some cardiac chamber enlargement similar overall. Coronary arteries: There is some coronary arterial stent and calcific appearance. Lymph nodes: There are some lymph node calcification granulomatous related change similar overall. There are some borderline reactive appearing lymph nodes similar for example at the retrocaval precarinal space measuring around 1.8 x 1.3 cm similar. Vasculature: No interval thoracic aortic saccular aneurysmal dilatation or intimal irregularity is appreciated with chronic atherosclerotic related change. No central filling defects are appreciated. Segmental evaluation is limited. Adrenal glands: There is some minimal adrenal hypertrophy. Stomach and bowel: There is a small sliding-type hiatal hernia demonstrated with slight gastroesophageal fold thickening. Intraperitoneal space: There is a similar otherwise interval appearance of the included intraperitoneal space, upper abdominal structures. Bones/joints: Osseous alignment is maintained.No interval displaced fracture or dislocation is appreciated.There is slightly decreased bone mineralization overall. There is some thoracic spondylosis present. Soft tissues: No radiopaque foreign body or subcutaneous emphysema is appreciated. There is some nodularity with calcific appearance about the right breast soft tissues similar overall. Other findings: No other significant interval changes are appreciated. CT/CT chest wo/w con [id number] IMPRESSION: 1. There is persistent patchy heterogeneous attenuation of the parenchyma and could be seen with chronic postinflammatory or small airways disease related sequela. Some chronic interstitial inflammation could also present in this fashion. No lobar consolidation is appreciated. 2. There are chronic granulomatous related changes similar overall. 3. There is cardiac chamber enlargement overall with no pericardial fluid collections appreciated. Consider echocardiography.
[2023-09-10 09:44] LABS: Blood Urea Nitrogen 18 mg/dL (8-23)
[2023-09-10] MEDS: iohexol 350 mg/mL 500 mL Btl (per mL) IV (09:53)
== END 2023-09-10 08:43 | disposition home or self-care (01) ==
PROVIDERS: PCP Physician Assistant; Visit Provider Surgery
DX: Z01.810 Encounter for preprocedural cardiovascular examination (principal); I25.10 Atherosclerotic heart disease of native coronary artery without angina pectoris; I50.9 Heart failure, unspecified; Z95.5 Presence of coronary angioplasty implant and graft
CPT/HCPCS: 71270; 82565; 84520; Q9967